=== PATIENT | male | born 1950 | race American Indian/Alaskan Native ===

== ENCOUNTER 2016-11-23 19:25 | Inpatient (IN) | payer OTHER ==
--- NOTE | 2016-11-23 20:03 | HP ---
COWS - Scale Resting Pulse: 2= [place] 101-120 Sweatin= Chills/Flushing Restless Observation: 3= Extraneous Movement Pupil Size: 2= Moderately Dilated Bone or Joint Aches: 2= Severe Diffuse Aches Runny Nose/ Eye Tearin= Runny Nose/Eyes GI Upset > 30mins: 3= Vomiting/Diarrhea Tremor Observation: 2= Slight Tremor Visible Yawning Observation: 0= None Anxiety or Irritability: 2=Irritable/Anxious Goose Flesh Skin: 0=Smooth Skin COWS Score: 19 CIWA Score - CIWA Score Nausea/Vomitin Muscle Tremors: 3 Anxiety: 3 Agitation: 2 Paroxysmal Sweats: 1-Minimal Palms Moist Orientation: 0-Oriented Tacttile Disturbances: 2-Mild Itch/Numbness/Burn Auditory Disturbances: 2-Mild Harshness/Frighten Visual Disturbances: 2-Mild Sensitivity Headache: 2-Mild CIWA-Ar Total Score: 20 Admission ROS BHS - HPI Chief Complaint: I NEED HELP TO STOP USING HEROIN AND ALCOHOL Allergies/Adverse Reactions: Allergies Allergy/AdvReac Type Severity Reaction Status Date / Time No Known Allergies Allergy Verified 11/23/16 21:05 History of Present Illness: THIS 66 YEARS OLD MALE WITH HEROIN AND ALCOHOL DEPENDENCE,WITHDRAWAL SYMPTOM, LAST DETOX IN [facility] LAST IN 09/25/16 TO 09/30/16 BIPOLAR DISORDER WEIGHT LOSS NICOTINE DEPENDENCE HISTORY OF DYSPHAGIA ALSO USING XANAX AND PERCOCET BIPOLAR DISORDER LONGEST PERIOD OF SOBRIETY 1 YEAR Exam Limitations: No Limitations - Ebola screening Have you traveled outside of the country in the last 21 days: No (N) Have you had contact with anyone from an Ebola affected area: No Do you have a fever: No - Review of Systems Constitutional: Chills, Loss of Appetite, Malaise, Night Sweats, Changes in sleep, Weakness, Unintentional Wgt. Loss EENT: reports: Tearing, Nose Congestion Respiratory: reports: No Symptoms reported Cardiac: reports: No Symptoms Reported GI: reports: Diarrhea, Nausea, Vomiting, Abdominal cramping : reports: No Symptoms Reported Musculoskeletal: reports: Back Pain, Joint Pain, Muscle Pain Integumentary: reports: Dryness Neuro: reports: Headache, Tremors Endocrine: reports: No Symptoms Reported Hematology: reports: No Symptoms Reported Psychiatric: reports: Anxious, Depressed, other (BIPOLAR DISORDER) Patient History - Patient Medical History Hx Anemia: No Hx Asthma: No Hx Chronic Obstructive Pulmonary Disease (COPD): No Hx Cancer: No Hx Cardiac Disorders: No Hx Congestive Heart Failure: No Hx Hypertension: No Hx Hypercholesterolemia: No Hx Pacemaker: No HX Cerebrovascular Accident: No Hx Seizures: No Hx Dementia: No Hx Diabetes: No Hx Gastrointestinal Disorders: No Hx Liver Disease: Yes (hepatitis a,b,c) Hx Genitourinary Disorders: No Hx Sexually Transmitted Disorders: No Hx Renal Disease (ESRD): No Hx Thyroid Disease: No Hx Human Immunodeficiency Virus (HIV): No (LAST 08/09 NEGATIVE) Hx Hepatitis C: Yes Hx Depression: Yes Hx Suicide Attempt: Yes (2013 PILL OD) Hx Bipolar Disorder: Yes (seroquel wellbutrin) Hx Schizophrenia: No Other Medical History: NO SUICIDAL,NO HOMICIDAL - Patient Surgical History Past Surgical History: Yes Hx Neurologic Surgery: No Hx Cataract Extraction: No Hx Cardiac Surgery: No Hx Lung Surgery: No Hx Breast Surgery: No Hx Breast Biopsy: No Hx Abdominal Surgery: No Hx Appendectomy: No Hx Cholecystectomy: No Hx Genitourinary Surgery: No Hx Section: No Hx Orthopedic Surgery: Yes (left cheek bone and nasal surgery 1970) Other Surgical History: reconstructive sx, nose and left cheekbone in 1971 Anesthesia Reaction: No - PPD History Previous Implant?: Yes Documented Results: Negative w/proof Date: 06/14/16 Results: 0mm PPD to be Administered?: No - Smoking Cessation Smoking history: Never smoked Have you smoked in the past 12 months: No Aproximately how many cigarettes per day: 5 Cigars Per Day: 0 Hx Chewing Tobacco Use: No Initiated information on smoking cessation: Yes 'Breaking Loose' booklet given: 11/23/16 - Substance & Tx. History Hx Alcohol Use: Yes Hx Substance Use: Yes Substance Use Type: Alcohol, Heroin, Prescribed, Tranquilizers - Substances Abused Heroin Route: Inhalation Frequency: Daily (8 BAGS) Amount used: 8 BAGS Age of first use: 18 Date of Last Use: 11/23/16 Alcohol Route: Oral Frequency: Daily Amount used: 6 PACKS OF 22 OZS OF BEER Alprazolam (Xanax) Route: Oral Frequency: 3-6 times per week Amount used: 4 MGS Age of first use: 66 Date of Last Use: 11/22/16 PERCOCET Route: Oral Frequency: Daily Amount used: 15 MGS Age of first use: 66 Date of Last Use: 11/22/16 Family Disease History - Family Disease History Family Disease History: Respiratory: Father (), Other: Mother ( ALCOHOLIC Cirrhosis), Brother (ALCOHOL), Sister (ALCOHOL) Admission Physical Exam S - Vital Signs Vital Signs: Vital Signs Temperature 98.2 F 11/23/16 20:01 Pulse Rate 102 H 11/23/16 20:01 Respiratory Rate 18 11/23/16 20:01 Blood Pressure 113/69 11/23/16 20:01 O2 Sat by Pulse Oximetry (%) - Physical General Appearance: Yes: Moderate Distress, Tremorous, Irritable, Sweating, Anxious HEENTM: Yes: Nasal Congestion Respiratory: Yes: Lungs Clear Neck: Yes: Within Normal Limits Breast: Yes: Within Normal Limits Cardiology: Yes: Tachycardia Abdominal: Yes: Within Normal Limits, Normal Bowel Sounds, Non Tender, Flat, Soft Genitourinary: Yes: Within Normal Limits Back: Yes: Muscle Spasm Musculoskeletal: Yes: Back pain, Muscle Pain Extremities: Yes: Tremors 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 (4) GERD (gastroesophageal reflux disease) Current Visit: No Status: Chronic Qualifiers: Esophagitis presence: without esophagitis Qualified Code(s): K21.9 - Gastro-esophageal reflux disease without esophagitis (5) Hepatitis A Current Visit: No Status: Chronic Qualifiers: Hepatic coma status: without hepatic coma Qualified Code(s): B15.9 - Hepatitis A without hepatic coma (6) Hepatitis B Current Visit: No Status: Chronic Qualifiers: Viral hepatitis chronicity: carrier Qualified Code(s): Z22.51 - Carrier of viral hepatitis B (7) Hepatitis C carrier Current Visit: No Status: Chronic (8) Nicotine dependence Current Visit: No Status: Chronic Qualifiers: Nicotine product type: cigarettes Substance use status: uncomplicated Qualified Code(s): F17.210 - Nicotine dependence, cigarettes, uncomplicated Comment: . (9) Anemia Current Visit: No Status: Suspected Qualifiers: Anemia type: iron deficiency Iron deficiency anemia type: other iron deficiency Qualified Code(s): D50.8 - Other iron deficiency anemias Comment: . (10) Bipolar I disorder Current Visit: No Status: Suspected (11) Weight loss Current Visit: Yes Status: Acute (12) Low back pain Current Visit: Yes Status: Acute (13) Use of cane as ambulatory aid Current Visit: Yes Status: Acute Cleared for Admission BHS - Detox or Rehab S Level of Care: Medically Managed Detox Regimen/Protocol: Methadone/Librium BHS Breath Alcohol Content Breath Alcohol Content: 0.033 Vital Signs - Vital Signs Vital Signs Refused: No Temperature: 98.2 F Temperature Source: Oral (102) Pulse Rate: 102 Respiratory Rate: 18 Blood Pressure: 113/69 BP Location: Left Arm - Height Height: 5 ft 8 in - Weight Weight: 136 lb Weight Measurement Method: Standing Scale Body Mass Index (BMI): 20.7 Urine Drug Screen - Test Device Lot Number: [id number] Expiration Date: 07/24/16 - Control Is Test Valid: Yes - Results Drug Screen Negative: No Urine Drug Screen Results: OPI-Opiates, BZO-Benzodiazepines, TCA-Tricyclic Antidepress, OXY-Oxycodone
[2016-11-23 20:05] VITALS: BMI 20.7
[2016-11-23] MEDS ORDERED: MENTHOL/PHENOL 1 EACH UD MM PRN (20:33)
[2016-11-23] MEDS ORDERED: chlordiazePOXIDE HCL 25 MG CAPSULE PO PRN (20:33)
[2016-11-23] MEDS ORDERED: guaiFENesin/D-METHORPHAN HB 10 ML UNIT-DOSE CUPS PO PRN (20:33)
[2016-11-23] MEDS ORDERED: METHADONE HCL 10 MG TABLET (FOR DETOX USE ONLY) PO ONE ×2 (20:33→23:00)
[2016-11-23] MEDS ORDERED: MAGNESIUM HYDROX 2400MG/30ML ORAL SUSPENSION 30 ML CUP PO PRN (20:33)
[2016-11-23] MEDS ORDERED: diphenhydrAMINE HCL 50 MG CAPSULE PO PRN (20:33)
[2016-11-23] MEDS ORDERED: LOPERAMIDE HCL 2 MG CAPSULE PO PRN (20:33)
[2016-11-23] MEDS ORDERED: MAGNESIUM CITRATE 300 ML BOTTLE PO PRN (20:33)
[2016-11-23] MEDS ORDERED: MAG HYDROX/AL HYDROX/SIMETH 30 ML UNIT-DOSE CUP PO PRN (20:33)
[2016-11-23] MEDS ORDERED: P-EPHED 60MG/TRIPROLIDI 2.5MG TABLET PO PRN (20:33)
[2016-11-23] MEDS ORDERED: ALBUTEROL SO4 6.7 GM HFA INHALER IH PRN (21:08)
[2016-11-23] MEDS: chlordiazePOXIDE HCL 25 MG CAPSULE PO SCH (22:01)
[2016-11-23] MEDS: THIAMINE HCL 100 MG TABLET (FP) PO SCH (22:01)
[2016-11-24] MEDS: chlordiazePOXIDE HCL 25 MG CAPSULE PO SCH ×4 (06:04→22:26)
[2016-11-24] MEDS: ACETAMINOPHEN 325 MG TABLET (FP) PO PRN ×2 (06:07→23:55)
[2016-11-24] MEDS ORDERED: METHADONE HCL 10 MG TABLET (FOR DETOX USE ONLY) PO SCH (10:00)
[2016-11-24] MEDS: PANTOPRAZOLE 40 MG TABLET (FP) PO SCH (10:30)
[2016-11-24] MEDS: PRENATAL VITAMINS W/ FOLIC ACID TABLET (FP) PO SCH (10:30)
[2016-11-24] MEDS: NICOTINE 14 MG/24 HOURS TOPICAL PATCH TD SCH (10:31)
[2016-11-24] MEDS ORDERED: COLLOIDAL OATMEAL 1 BAR EACH TP PRN (10:35)
[2016-11-24] MEDS ORDERED: INFLUENZA VACCINE 45 MCG/0.5 ML (MDV 16-17) IM ONE (12:00)
[2016-11-24] MEDS: IBUPROFEN 400 MG TABLET (FP) PO PRN (13:05)
[2016-11-24] MEDS ORDERED: diphenhydrAMINE HCL 25 MG CAPSULE (FP) PO PRN (13:11)
--- NOTE | 2016-11-24 13:19 | PN ---
[facility] CIWA - CIWA Score Nausea/Vomitin Muscle Tremors: 3 Anxiety: 1-Mildly Anxious Agitation: 2 Paroxysmal Sweats: 3 Orientation: 1-Uncertain about Date Tacttile Disturbances: 3-Moderate Itch/Numb/Burn Auditory Disturbances: 0-None Visual Disturbances: 0-None Headache: 0-None Present CIWA-Ar Total Score: 18 BHS COWS - Scale Resting Pulse: 1= [place] 81-100 Sweatin= Chills/Flushing Restless Observation: 1= Difficult to Sit Still Pupil Size: 0= Normal to Room Light Bone or Joint Aches: 1= Mild Discomfort Runny Nose/ Eye Tearin= None GI Upset > 30mins: 2= Nausea/Diarrhea Tremor Observation of Outstretched Hands: 2= Slight Tremor Visible Yawning Observation: 0= None Anxiety or Irritability: 2=Irritable/Anxious Goose Flesh Skin: 3=Piloerection COWS Score: 13 BHS Progress Note (SOAP) Subjective: Tremors, Sweating, Vomiting, Body Aches, Interrupted Sleep, Diarrhea. Pt. also reporting lesions on bilateral forearms, buttock and right leg that are itchy. Pt. reports this to be a chronic condition. Objective: Several large Hyperpigmented Papular lesions are noted on pt.'s buttocks, forearms, upper aspect of right leg, and right foot. 11/24/16 13:17 Vital Signs Temperature 96.7 F L 11/24/16 13:11 Pulse Rate 78 11/24/16 13:11 Respiratory Rate 18 11/24/16 13:11 Blood Pressure 111/62 11/24/16 13:11 O2 Sat by Pulse Oximetry (%) 11/24/16 13:18 LABS NOT YET COLLECTED. 11/24/16 13:19 Assessment: 11/24/16 13:18 WITHDRAWAL SYMPTOMS. 11/24/16 13:21 Plan: CONTINUE DETOX. D/C MAGNESIUM-CONTAINING PRODUCTS DUE ABNORMAL RENAL LABS. BENADRYL, 25 MG Q 6 HRS PRN ITCHING. TRIAMCINOLONE OINTMENT TO BE BE APPLIED BID TO AFFECTED AREAS. ADVISE PT. TO FOLLOW-UP WITH PMD AFTER DISCHARGE REGARDING SKIN ISSUE AND REGARDING ABNORMAL LAB VALUES.
[2016-11-24] MEDS: TRIAMCINOLONE ACET 0.025% OINTMENT 15 GM TUBE TP SCH ×2 (16:13→22:28)
[2016-11-24] MEDS: THIAMINE HCL 100 MG TABLET (FP) PO SCH (22:26)
[2016-11-25] MEDS: IBUPROFEN 400 MG TABLET (FP) PO PRN (01:45)
[2016-11-25] MEDS: hydrOXYzine PAMOATE 25 MG CAPSULE (FP) PO PRN (01:45)
[2016-11-25] MEDS: chlordiazePOXIDE HCL 25 MG CAPSULE PO SCH ×3 (05:28→17:43)
[2016-11-25 10:32] LABS: MCHC 33.6 g/dl (32.0-35.9); MEAN CELL VOLUME 92.4 fl (80-96); MEAN PLT VOLUME 8.5 fl (7.5-11.1); PLATELET COUNT 215 K/MM3 (134-434); RDW 20.2 % (11.9-15.9); WHITE BLOOD COUNT 4.8 K/mm3 (4.0-10.0)
[2016-11-25] MEDS: TRIAMCINOLONE ACET 0.025% OINTMENT 15 GM TUBE TP SCH ×4 (10:34→22:22)
[2016-11-25] MEDS: PRENATAL VITAMINS W/ FOLIC ACID TABLET (FP) PO SCH (10:35)
[2016-11-25] MEDS: METHADONE HCL 5 MG TABLET (FOR DETOX USE ONLY) PO SCH (10:35)
[2016-11-25] MEDS: PANTOPRAZOLE 40 MG TABLET (FP) PO SCH (10:36)
[2016-11-25] MEDS: NICOTINE 14 MG/24 HOURS TOPICAL PATCH TD SCH (10:36)
--- NOTE | 2016-11-25 10:46 | PN ---
[facility] CIWA - CIWA Score Nausea/Vomitin-No Nausea/No Vomiting Muscle Tremors: 4-Moderate,w/Arms Extend Anxiety: 3 Agitation: 3 Paroxysmal Sweats: 3 Orientation: 0-Oriented Tacttile Disturbances: 1-Very Mild Itch/Numbness Auditory Disturbances: 0-None Visual Disturbances: 0-None Headache: 0-None Present CIWA-Ar Total Score: 14 S COWS - Scale Resting Pulse: 1= [place] 81-100 Sweatin=Flushed/Facial Moisture Restless Observation: 1= Difficult to Sit Still Pupil Size: 0= Normal to Room Light Bone or Joint Aches: 1= Mild Discomfort Runny Nose/ Eye Tearin= Runny Nose/Eyes GI Upset > 30mins: 1= Stomach Cramp Tremor Observation of Outstretched Hands: 1= Tremor [place], Not Seen Yawning Observation: 1= 1-2x During Session Anxiety or Irritability: 2=Irritable/Anxious Goose Flesh Skin: 0=Smooth Skin COWS Score: 12 [facility] Progress Note (SOAP) Subjective: SWEATING,ANXIETY,TREMORS,INTERRUPTED SLEEP,RESTLESS. C/O HYPERPIGMENTED RASH ON EXTREMITIES AND TRUNK Objective: 11/25/16 10:45 Vital Signs - 8 hr 11/25/16 11/25/16 06:13 10:18 Temperature 97.0 F L 97.1 F L Pulse Rate 82 90 Respiratory 16 18 Rate Blood Pressure 108/64 142/82 Laboratory Last Values WBC 4.8 K/mm3 (4.0-10.0) 11/25/16 07:15 RBC 2.82 M/mm3 (4.00-5.60) L D 11/25/16 07:15 Hgb 8.7 GM/dL (11.7-16.9) L D 11/25/16 07:15 Hct 26.1 % (35.4-49) L D 11/25/16 07:15 MCV 92.4 fl (80-96) 11/25/16 07:15 MCHC 33.6 g/dl (32.0-35.9) 11/25/16 07:15 RDW 20.2 % (11.9-15.9) H D 11/25/16 07:15 Plt Count 215 K/MM3 (134-434) D 11/25/16 07:15 MPV 8.5 fl (7.5-11.1) 11/25/16 07:15 LABS NOTED,WE'LL REPEAT Assessment: 11/25/16 10:46 WITHDRAWAL SX. ANEMIA Plan: CONTINUE DETOX
[2016-11-25 11:15] LABS: ALBUMIN 3.3 g/dl (3.4-5.0); ALK PHOS 85 U/L (45-117); ANION GAP 7 (8-16); BILIRUBIN,TOTAL 0.5 mg/dL (0.2-1.0); CALCIUM 8.5 mg/dL (8.5-10.1); CO2 23 mmol/L (21-32); CREATININE 0.8 mg/dL (0.7-1.3); GLUCOSE,RANDOM 86 mg/dL (74-106); SGOT/AST 17 U/L (15-37); SGPT/ALT 20 U/L (12-78); TOT PROT 6.9 g/dl (6.4-8.2)
[2016-11-25] MEDS ORDERED: diphenhydrAMINE HCL 25 MG CAPSULE (FP) PO PRN (12:41)
[2016-11-25] MEDS: FERROUS SO4 325 MG TABLET (FP) PO SCH ×2 (13:57→17:43)
[2016-11-25 15:28] LABS: HIV 1 & 2 AB NEGATIVE; HIV 1 AGp24 NEGATIVE
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
[2016-11-25] MEDS: GABAPENTIN 100 MG CAPSULE (FP) PO SCH (22:21)
[2016-11-25] MEDS: chlordiazePOXIDE 5 MG CAPSULE PO SCH (22:21)
[2016-11-25] MEDS: THIAMINE HCL 100 MG TABLET (FP) PO SCH (22:21)
[2016-11-25] MEDS: QUEtiapine FUMARATE 200 MG TABLET PO SCH (22:21)
[2016-11-26] MEDS: chlordiazePOXIDE 5 MG CAPSULE PO SCH ×3 (06:00→17:19)
[2016-11-26] MEDS: GABAPENTIN 100 MG CAPSULE (FP) PO SCH ×3 (06:12→22:17)
[2016-11-26] MEDS: ACETAMINOPHEN 325 MG TABLET (FP) PO PRN ×2 (06:17→20:50)
[2016-11-26] MEDS: IBUPROFEN 400 MG TABLET (FP) PO PRN (07:31)
[2016-11-26] MEDS: FERROUS SO4 325 MG TABLET (FP) PO SCH ×3 (07:42→17:20)
--- NOTE | 2016-11-26 10:05 | PN ---
S Progress Note (SOAP) Subjective: ALERT,IRRITABLE,ANXIOUS,INTERRUPTED SLEEP,PAIN IN LOWER BACK, Objective: 11/26/16 10:04 Vital Signs Temperature 96.8 F L 11/26/16 06:36 Pulse Rate 104 H 11/26/16 06:36 Respiratory Rate 18 11/26/16 06:36 Blood Pressure 114/63 11/26/16 06:36 O2 Sat by Pulse Oximetry (%) Assessment: 11/26/16 10:04 WITHDRAWAL SYMPTOM Plan: CONTINUE DETOX
[2016-11-26] MEDS: TRIAMCINOLONE ACET 0.025% OINTMENT 15 GM TUBE TP SCH ×4 (10:14→22:17)
[2016-11-26] MEDS: NICOTINE 14 MG/24 HOURS TOPICAL PATCH TD SCH (10:14)
[2016-11-26] MEDS: PRENATAL VITAMINS W/ FOLIC ACID TABLET (FP) PO SCH (10:14)
[2016-11-26] MEDS: METHADONE HCL 5 MG TABLET (FOR DETOX USE ONLY) PO SCH (10:14)
[2016-11-26] MEDS: PANTOPRAZOLE 40 MG TABLET (FP) PO SCH (10:14)
[2016-11-26] MEDS: LIDOCAINE 5% TOPICAL PATCH TP SCH (10:45)
[2016-11-26 16:29] LABS: URINE APPEARANCE CLEAR; URINE BILIRUBIN NEGATIVE (NEGATIVE); URINE BLOOD NEGATIVE (NEGATIVE); URINE COLOR YELLOW; URINE GLUCOSE (UA) NEGATIVE (NEGATIVE); URINE KETONE NEGATIVE (NEGATIVE); URINE LEUK ESTERASE NEGATIVE (NEGATIVE); URINE NITRITE NEGATIVE (NEGATIVE); URINE PROTEIN NEGATIVE (NEGATIVE); URINE UROBILINOGEN NEGATIVE E.U./dl (0.2-1.0)
[2016-11-26] MEDS: QUEtiapine FUMARATE 200 MG TABLET PO SCH (22:17)
[2016-11-26] MEDS: chlordiazePOXIDE HCL 10 MG CAPSULE PO SCH (22:17)
[2016-11-26] MEDS: THIAMINE HCL 100 MG TABLET (FP) PO SCH (22:18)
[2016-11-27] MEDS: GABAPENTIN 100 MG CAPSULE (FP) PO SCH ×3 (06:33→22:15)
[2016-11-27] MEDS: chlordiazePOXIDE HCL 10 MG CAPSULE PO SCH ×3 (06:33→17:12)
[2016-11-27] MEDS: FERROUS SO4 325 MG TABLET (FP) PO SCH ×3 (07:26→17:30)
--- NOTE | 2016-11-27 09:48 | PN ---
S Progress Note (SOAP) Subjective: ALERT,IRRITABLE,INTERRUPTED SLEEP Objective: 11/27/16 09:47 Vital Signs Temperature 97.0 F L 11/27/16 09:33 Pulse Rate 90 11/27/16 09:33 Respiratory Rate 18 11/27/16 09:33 Blood Pressure 136/66 11/27/16 09:33 O2 Sat by Pulse Oximetry (%) Assessment: 11/27/16 09:48 WITHDRAWAL SYMPTOM Plan: CONTINUE DETOX,DISCHARGE IN AM
[2016-11-27] MEDS ORDERED: METHADONE HCL 10 MG TABLET (FOR DETOX USE ONLY) PO SCH (10:00)
[2016-11-27] MEDS: TRIAMCINOLONE ACET 0.025% OINTMENT 15 GM TUBE TP SCH ×4 (10:13→22:17)
[2016-11-27] MEDS: LIDOCAINE 5% TOPICAL PATCH TP SCH (10:13)
[2016-11-27] MEDS: NICOTINE 14 MG/24 HOURS TOPICAL PATCH TD SCH (10:13)
[2016-11-27] MEDS: PANTOPRAZOLE 40 MG TABLET (FP) PO SCH (10:13)
[2016-11-27] MEDS: PRENATAL VITAMINS W/ FOLIC ACID TABLET (FP) PO SCH (10:13)
[2016-11-27] MEDS: IBUPROFEN 400 MG TABLET (FP) PO PRN (17:13)
[2016-11-27] MEDS: THIAMINE HCL 100 MG TABLET (FP) PO SCH (22:15)
[2016-11-27] MEDS: QUEtiapine FUMARATE 200 MG TABLET PO SCH (22:15)
[2016-11-28] MEDS: ACETAMINOPHEN 325 MG TABLET (FP) PO PRN (04:22)
[2016-11-28] MEDS: hydrOXYzine PAMOATE 25 MG CAPSULE (FP) PO PRN (04:25)
[2016-11-28] MEDS ORDERED: METHADONE HCL 5 MG TABLET (FOR DETOX USE ONLY) PO SCH (06:00)
[2016-11-28] MEDS: GABAPENTIN 100 MG CAPSULE (FP) PO SCH (06:21)
[2016-11-28] MEDS: FERROUS SO4 325 MG TABLET (FP) PO SCH (07:32)
--- NOTE | 2016-11-28 08:13 | PN ---
S Progress Note (SOAP) Subjective: alert,no complaint Objective: 11/28/16 08:12 Vital Signs Temperature 96.9 F L 11/28/16 06:26 Pulse Rate 81 11/28/16 06:26 Respiratory Rate 18 11/28/16 06:26 Blood Pressure 152/80 11/28/16 06:26 O2 Sat by Pulse Oximetry (%) 11/28/16 08:12 Assessment: 11/28/16 08:12 detox completed,no withdrawal symptom Plan: discharge today,follow up with after care program as arrangement
--- NOTE | 2016-11-28 08:18 | DS ---
[facility] Detox Discharge Summary Admission Date: 11/23/16 Discharge Date: 11/28/16 - History Present History: Alcohol Dependence, Opioid Dependence Additional Comments: follow up with after [facility] program as arrangement and pmd for medical problem Pertinent Past History: gerd hepatitis a hepatitis b hepatitis c nicotine dependence anemia low back pain - Physical Exam Results Vital Signs: Vital Signs Temperature 96.9 F L 11/28/16 06:26 Pulse Rate 81 11/28/16 06:26 Respiratory Rate 18 11/28/16 06:26 Blood Pressure 152/80 11/28/16 06:26 O2 Sat by Pulse Oximetry (%) Pertinent Admission Physical Exam Findings: withdrawal symptom - Treatment Hospital Course: Detox Protocol Followed, Detoxed Safely, Responded well, Discharged Condition Good Patient has Accepted a Rehab Referral to: [facility] - Medication Discharge Medications: Ambulatory Orders Pantoprazole Sodium [Protonix] 40 mg PO DAILY #30 tablet. 10/04/15 Bupropion HCl [Wellbutrin Xl -] 150 mg PO DAILY #30 tab.sr.24h 09/25/16 Gabapentin [Neurontin] 100 mg PO TID #30 capsule 09/25/16 Quetiapine Fumarate [Seroquel] 100 tab PO DAILY #30 tablet 09/25/16 Quetiapine Fumarate [Seroquel -] 400 mg PO HS 11/23/16 Bupropion HCl [Wellbutrin Xl -] 150 mg PO DAILY #30 tab.sr.24h 11/25/16 Gabapentin [Neurontin -] 100 mg PO TID #60 capsule 11/25/16 Quetiapine Fumarate [Seroquel -] 300 mg PO HS #30 tab 11/25/16 - Diagnosis (1) Opioid dependence with withdrawal Current Visit: Yes Status: Acute (2) Alcohol dependence with uncomplicated withdrawal Current Visit: Yes Status: Acute (3) COPD (chronic obstructive pulmonary disease) Current Visit: No Status: Chronic Qualifiers: COPD type: chronic bronchitis Chronic bronchitis type: simple Qualified Code(s): J41.0 - Simple chronic bronchitis (4) GERD (gastroesophageal reflux disease) Current Visit: Yes Status: Chronic Qualifiers: Esophagitis presence: without esophagitis Qualified Code(s): K21.9 - Gastro-esophageal reflux disease without esophagitis (5) Hepatitis A Current Visit: Yes Status: Chronic Qualifiers: Hepatic coma status: without hepatic coma Qualified Code(s): B15.9 - Hepatitis A without hepatic coma (6) Hepatitis B Current Visit: Yes Status: Chronic Qualifiers: Viral hepatitis chronicity: carrier Qualified Code(s): Z22.51 - Carrier of viral hepatitis B (7) Hepatitis C carrier Current Visit: Yes Status: Chronic (8) Nicotine dependence Current Visit: Yes Status: Acute Qualifiers: Nicotine product type: cigarettes Substance use status: uncomplicated Qualified Code(s): F17.210 - Nicotine dependence, cigarettes, uncomplicated (9) Anemia Current Visit: Yes Status: Suspected Qualifiers: Anemia type: iron deficiency Iron deficiency anemia type: other iron deficiency Qualified Code(s): D50.8 - Other iron deficiency anemias (10) Bipolar I disorder Current Visit: No Status: Suspected (11) Weight loss Current Visit: Yes Status: Chronic (12) Low back pain Current Visit: Yes Status: Chronic (13) Use of cane as ambulatory aid Current Visit: Yes Status: Chronic - AMA Did Patient Leave Against Medical Advice: No
[2016-11-28 09:39] VITALS: BP 139/50; PULSE 77; TEMP 96.8
[2016-11-28] MEDS: PRENATAL VITAMINS W/ FOLIC ACID TABLET (FP) PO SCH (10:04)
[2016-11-28] MEDS: PANTOPRAZOLE 40 MG TABLET (FP) PO SCH (10:04)
[2016-11-28] MEDS: LIDOCAINE 5% TOPICAL PATCH TP SCH (10:05)
[2016-11-28] MEDS: NICOTINE 14 MG/24 HOURS TOPICAL PATCH TD SCH (10:05)
[2016-11-28] MEDS: TRIAMCINOLONE ACET 0.025% OINTMENT 15 GM TUBE TP SCH (10:05)
== END 2016-11-28 10:15 | disposition home or self-care (01) | DRG 773 ==
LOC: YASAS 19:25 → Y3N 20:14
PROVIDERS: ADMIT Internal Medicine; ATTEND Internal Medicine
PROC: HZ2ZZZZ Detoxification Services for Substance Abuse Treatment (ICD-10-PCS; principal; 2016-11-23)
DX: F11.23 Opioid dependence with withdrawal (principal); F10.230 Alcohol dependence with withdrawal, uncomplicated; F17.210 Nicotine dependence, cigarettes, uncomplicated; F31.89 Other bipolar disorder; F19.24 Other psychoactive substance dependence with psychoactive substance-induced mood disorder; F19.282 Other psychoactive substance dependence with psychoactive substance-induced sleep disorder; J41.0 Simple chronic bronchitis; K21.9 Gastro-esophageal reflux disease without esophagitis; B15.9 Hepatitis A without hepatic coma; B18.2 Chronic viral hepatitis C; B18.1 Chronic viral hepatitis B without delta-agent; D50.9 Iron deficiency anemia, unspecified; M54.5 Low back pain; R00.0 Tachycardia, unspecified; R26.2 Difficulty in walking, not elsewhere classified; Z87.898 Personal history of other specified conditions; Z91.5 Personal history of self-harm
CPT/HCPCS: 36415; 80053; 81003; 85027; 86593; 87389; 93005; 93010

== ENCOUNTER 2017-01-04 14:04 | Inpatient (IN) | payer OTHER ==
[2017-01-04 15:53] VITALS: BMI 20.8
--- NOTE | 2017-01-04 16:31 | HP ---
COWS - Scale Resting Pulse: 2= WA 101-120 Sweatin=Flushed/Facial Moisture Restless Observation: 1= Difficult to Sit Still Pupil Size: 2= Moderately Dilated Bone or Joint Aches: 2= Severe Diffuse Aches Runny Nose/ Eye Tearin= Runny Nose/Eyes GI Upset > 30mins: 2= Nausea/Diarrhea Tremor Observation: 2= Slight Tremor Visible Yawning Observation: 1= 1-2x During Session Anxiety or Irritability: 2=Irritable/Anxious Goose Flesh Skin: 0=Smooth Skin COWS Score: 18 CIWA Score - CIWA Score Nausea/Vomitin Muscle Tremors: 4-Moderate,w/Arms Extend Anxiety: 4-Mod. Anxious/Guarded Agitation: 4-Moderately Restless Paroxysmal Sweats: 3 Orientation: 1-Uncertain about Date Tacttile Disturbances: 1-Very Mild Itch/Numbness Auditory Disturbances: 0-None Visual Disturbances: 0-None Headache: 0-None Present CIWA-Ar Total Score: 20 Admission ROS BHS - HPI Chief Complaint: withdrawal sx. Allergies/Adverse Reactions: Allergies Allergy/AdvReac Type Severity Reaction Status Date / Time No Known Allergies Allergy Verified 11/23/16 21:05 History of Present Illness: 66 y/o man with a long hx. of heroin & alcohol dependence is admitted for detox.Pt. has been in previous detox, denies significant sobriety. Exam Limitations: No Limitations - Ebola screening Have you traveled outside of the country in the last 21 days: No Have you had contact with anyone from an Ebola affected area: No Have you been sick,other than usual withdrawal symptoms: No Do you have a fever: No - Review of Systems Constitutional: Diaphoresis EENT: reports: Nose Congestion Respiratory: reports: Shortness of Breath (because of smoking) Cardiac: reports: No Symptoms Reported GI: reports: Nausea, Abdominal cramping : reports: No Symptoms Reported Musculoskeletal: reports: Back Pain Integumentary: reports: Sweating Neuro: reports: Tingling, Tremors Endocrine: reports: No Symptoms Reported Hematology: reports: No Symptoms Reported Psychiatric: reports: No Sypmtoms Reported Other Systems: Reviewed and Negative Patient History - Patient Medical History Hx Anemia: No Hx Asthma: No Hx Chronic Obstructive Pulmonary Disease (COPD): Yes Hx Cancer: No Hx Cardiac Disorders: No Hx Congestive Heart Failure: No Hx Hypertension: No Hx Hypercholesterolemia: No Hx Pacemaker: No HX Cerebrovascular Accident: No Hx Seizures: No Hx Dementia: No Hx Diabetes: No Hx Gastrointestinal Disorders: No Hx Liver Disease: Yes (hepatitis a,b,c) Hx Genitourinary Disorders: No Hx Sexually Transmitted Disorders: No Hx Renal Disease (ESRD): No Hx Thyroid Disease: No Hx Human Immunodeficiency Virus (HIV): No Hx Hepatitis C: Yes (incomplete treatment) Hx Depression: Yes Hx Suicide Attempt: Yes (2013 PILL OD) Hx Bipolar Disorder: Yes (seroquel wellbutrin) Hx Schizophrenia: No - Patient Surgical History Past Surgical History: Yes Hx Neurologic Surgery: No Hx Cataract Extraction: No Hx Cardiac Surgery: No Hx Lung Surgery: No Hx Breast Surgery: No Hx Breast Biopsy: No Hx Abdominal Surgery: No Hx Appendectomy: No Hx Cholecystectomy: No Hx Genitourinary Surgery: No Hx Section: No Hx Orthopedic Surgery: Yes (left cheek bone and nasal surgery 1970) Other Surgical History: reconstructive sx, nose and left cheekbone in 1971 Anesthesia Reaction: No - PPD History Previous Implant?: Yes Documented Results: Negative w/proof Implanted On Prior [facility] Admission?: Yes Date: 06/14/16 Results: 0mm PPD to be Administered?: No - Smoking Cessation Smoking history: Current every day smoker Aproximately how many cigarettes per day: 5 Cigars Per Day: 0 Hx Chewing Tobacco Use: No Initiated information on smoking cessation: Yes 'Breaking Loose' booklet given: 01/04/17 - Substance & Tx. History Hx Alcohol Use: Yes Hx Substance Use: Yes Substance Use Type: Alcohol, Heroin Hx Substance Use Treatment: Yes (detox) - Substances Abused Alcohol Route: Oral Frequency: Daily Amount used: Beer 2(6packs) Age of first use: 23 Date of Last Use: 01/04/17 Heroin Route: Inhalation Frequency: Daily Amount used: 5 bags Age of first use: 18 Date of Last Use: 01/04/17 Family Disease History - Family Disease History Family Disease History: Respiratory: Father (), Other: Mother ( ALCOHOLIC Cirrhosis), Brother (ALCOHOL), Sister (ALCOHOL) Admission Physical Exam BHS - Vital Signs Vital Signs: Vital Signs - 24 hr 01/04/17 15:51 Temperature 98.6 F Pulse Rate 102 H Respiratory 20 Rate Blood Pressure 134/75 - Physical General Appearance: Yes: Alcohol on Breath, Tremorous, Irritable, Sweating HEENTM: Yes: Nasal Congestion, Rhinorrhea Respiratory: Yes: Chest Non-Tender, Lungs Clear, Normal Breath Sounds Neck: Yes: Supple Breast: Yes: Breast Exam Deferred Cardiology: Yes: Regular Rhythm, Regular Rate, S1, S2 Abdominal: Yes: Normal Bowel Sounds, Non Tender, Soft Genitourinary: Yes: Within Normal Limits Back: Yes: Within Normal Limits Musculoskeletal: Yes: Within Normal Limits Extremities: Yes: Tremors Neurological: Yes: Fully Oriented, Alert Integumentary: Yes: Diaphoresis Lymphatic: Yes: Within Normal Limits - Diagnostic (1) Alcohol dependence with uncomplicated withdrawal Current Visit: No Status: Acute (2) Opioid dependence with withdrawal Current Visit: No Status: Acute (3) COPD (chronic obstructive pulmonary disease) Current Visit: No Status: Chronic Qualifiers: COPD type: chronic bronchitis Chronic bronchitis type: simple Qualified Code(s): J41.0 - Simple chronic bronchitis Comment: . Cleared for Admission [facility] - Detox or Rehab [facility] Level of Care: Medically Managed Detox Regimen/Protocol: Methadone/Librium [facility] Breath Alcohol Content Breath Alcohol Content: 0.155 Urine Drug Screen - Results Drug Screen Negative: No Urine Drug Screen Results: OPI-Opiates, OXY-Oxycodone
[2017-01-04] MEDS ORDERED: MAGNESIUM HYDROX 2400MG/30ML ORAL SUSPENSION 30 ML CUP PO PRN (16:39)
[2017-01-04] MEDS ORDERED: hydrOXYzine PAMOATE 50 MG CAPSULE (FP) PO PRN (16:39)
[2017-01-04] MEDS ORDERED: P-EPHED 60MG/TRIPROLIDI 2.5MG TABLET PO PRN (16:39)
[2017-01-04] MEDS ORDERED: guaiFENesin/D-METHORPHAN HB 10 ML UNIT-DOSE CUPS PO PRN (16:39)
[2017-01-04] MEDS ORDERED: chlordiazePOXIDE HCL 25 MG CAPSULE PO ONE (16:39)
[2017-01-04] MEDS ORDERED: NICOTINE POLACRILEX 2 MG GUM BC PRN (16:39)
[2017-01-04] MEDS ORDERED: IBUPROFEN 400 MG TABLET (FP) PO PRN (16:39)
[2017-01-04] MEDS ORDERED: MAG HYDROX/AL HYDROX/SIMETH 30 ML UNIT-DOSE CUP PO PRN (16:39)
[2017-01-04] MEDS ORDERED: MENTHOL/PHENOL 1 EACH UD MM PRN (16:39)
[2017-01-04] MEDS ORDERED: MAGNESIUM CITRATE 300 ML BOTTLE PO PRN (16:39)
[2017-01-04] MEDS ORDERED: LOPERAMIDE HCL 2 MG CAPSULE PO PRN (16:39)
[2017-01-04] MEDS ORDERED: METHADONE HCL 10 MG TABLET (FOR DETOX USE ONLY) PO ONE ×2 (16:41→23:00)
[2017-01-04] MEDS ORDERED: ALBUTEROL SO4 6.7 GM HFA INHALER IH PRN (16:43)
[2017-01-04] MEDS ORDERED: METHADONE HCL 10 MG TABLET (FOR DETOX USE ONLY) ONE (19:52)
[2017-01-04] MEDS: PANTOPRAZOLE 40 MG TABLET (FP) PO SCH (19:59)
[2017-01-04] MEDS: FERROUS SO4 325 MG TABLET (FP) PO SCH (19:59)
[2017-01-04] MEDS: chlordiazePOXIDE HCL 25 MG CAPSULE PO SCH ×2 (20:00→22:33)
[2017-01-04] MEDS: NICOTINE 14 MG/24 HOURS TOPICAL PATCH TD SCH (20:00)
[2017-01-04] MEDS: ACLIDINIUM BROMIDE 400 MCG/INH AERO.POWD IH SCH (22:32)
[2017-01-04] MEDS: THIAMINE HCL 100 MG TABLET (FP) PO SCH (22:33)
[2017-01-04] MEDS: diphenhydrAMINE HCL 50 MG CAPSULE PO PRN (22:33)
[2017-01-05] MEDS: diphenhydrAMINE HCL 50 MG CAPSULE PO PRN (00:49)
[2017-01-05] MEDS: chlordiazePOXIDE HCL 25 MG CAPSULE PO PRN ×2 (03:06→18:54)
[2017-01-05] MEDS: chlordiazePOXIDE HCL 25 MG CAPSULE PO SCH ×4 (05:44→22:22)
[2017-01-05] MEDS: FERROUS SO4 325 MG TABLET (FP) PO SCH ×3 (07:25→18:54)
[2017-01-05] MEDS ORDERED: METHADONE HCL 10 MG TABLET (FOR DETOX USE ONLY) PO ONE (10:00)
[2017-01-05] MEDS: ACLIDINIUM BROMIDE 400 MCG/INH AERO.POWD IH SCH ×2 (10:02→22:23)
[2017-01-05] MEDS: PANTOPRAZOLE 40 MG TABLET (FP) PO SCH (10:02)
[2017-01-05] MEDS: PRENATAL VITAMINS W/ FOLIC ACID TABLET (FP) PO SCH (10:02)
[2017-01-05] MEDS: NICOTINE 14 MG/24 HOURS TOPICAL PATCH TD SCH (10:03)
[2017-01-05 10:12] LABS: MCH 31.7 pg (25.7-33.7); MCHC 33.2 g/dl (32.0-35.9); MEAN CELL VOLUME 95.5 fl (80-96); MEAN PLT VOLUME 8.8 fl (7.5-11.1); PLATELET COUNT 219 K/MM3 (134-434); RDW 15.7 % (11.9-15.9); WHITE BLOOD COUNT 7.2 K/mm3 (4.0-10.0)
[2017-01-05 10:26] LABS: ALBUMIN 3.6 g/dl (3.4-5.0); ALK PHOS 82 U/L (45-117); ANION GAP 8 (8-16); BILIRUBIN,TOTAL 0.3 mg/dL (0.2-1.0); CALCIUM 8.5 mg/dL (8.5-10.1); CO2 28 mmol/L (21-32); CREATININE 0.7 mg/dL (0.7-1.3); GLUCOSE,RANDOM 85 mg/dL (74-106); SGOT/AST 28 U/L (15-37); SGPT/ALT 23 U/L (12-78); TOT PROT 7.4 g/dl (6.4-8.2)
--- NOTE | 2017-01-05 13:18 | PN ---
S CIWA - CIWA Score Nausea/Vomitin Muscle Tremors: 4-Moderate,w/Arms Extend Anxiety: 3 Agitation: 4-Moderately Restless Paroxysmal Sweats: No Perspiration Orientation: 0-Oriented Tacttile Disturbances: 1-Very Mild Itch/Numbness Auditory Disturbances: 0-None Visual Disturbances: 0-None Headache: 2-Mild CIWA-Ar Total Score: 19 BHS COWS - Scale Resting Pulse: 1= ID 81-100 Sweatin=Flushed/Facial Moisture Restless Observation: 3= Extraneous Movement Pupil Size: 0= Normal to Room Light Bone or Joint Aches: 2= Severe Diffuse Aches Runny Nose/ Eye Tearin= Runny Nose/Eyes GI Upset > 30mins: 3= Vomiting/Diarrhea Tremor Observation of Outstretched Hands: 2= Slight Tremor Visible Yawning Observation: 0= None Anxiety or Irritability: 2=Irritable/Anxious Goose Flesh Skin: 0=Smooth Skin COWS Score: 17 S Progress Note (SOAP) Subjective: Anxious, restless, interrupted sleep (benadryl ineffective, requesting ambien tonight until seen by psychiatrist tomorrow), tremor, sweating, nausea, vomited once this AM, diarrhea Objective: 01/05/17 13:15 Last Vital Signs Temp Pulse Resp BP Pulse Ox 98.5 F 95 H 18 137/72 01/05/17 09:15 01/05/17 09:15 01/05/17 09:15 01/05/17 09:15 Laboratory Tests 01/05/17 01/05/17 01/05/17 07:50 07:50 07:50 WBC 7.2 D RBC 3.35 L Hgb 10.6 L D Hct 32.0 L D MCV 95.5 MCHC 33.2 RDW 15.7 D Plt Count 219 MPV 8.8 Sodium 136 Potassium 4.4 Chloride 100 Carbon Dioxide 28 D Anion Gap 8 BUN 9 D Creatinine 0.7 Creat Clearance w eGFR > 60 Random Glucose 85 Calcium 8.5 Total Bilirubin 0.3 D AST 28 D ALT 23 Alkaline Phosphatase 82 Total Protein 7.4 Albumin 3.6 RPR Titer Nonreactive Labs noted Assessment: 01/05/17 13:16 Withdrawal symptoms Plan: Continue detox, encouraged to drink lots of water for hydration, ambien 10mg PO x 1 dose tonight for interrupted sleep. Patient reports taking seroquel 400mg qhs and 300mg qam at home and wellbutrin 150mg bid?
[2017-01-05] MEDS ORDERED: TRIMETHOBENZAMIDE HCL 200MG/2ML INJ IM PRN (17:47)
[2017-01-05] MEDS ORDERED: ONDANSETRON *ODT* 4 MG TABLET SL PRN (17:47)
[2017-01-05 21:02] LABS: URINE APPEARANCE CLEAR; URINE BILIRUBIN NEGATIVE (NEGATIVE); URINE BLOOD NEGATIVE (NEGATIVE); URINE COLOR YELLOW; URINE GLUCOSE (UA) NEGATIVE (NEGATIVE); URINE KETONE NEGATIVE (NEGATIVE); URINE LEUK ESTERASE NEGATIVE (NEGATIVE); URINE NITRITE NEGATIVE (NEGATIVE); URINE PROTEIN NEGATIVE (NEGATIVE); URINE UROBILINOGEN NEGATIVE E.U./dl (0.2-1.0)
[2017-01-05] MEDS ORDERED: ZOLPIDEM TARTRATE 5 MG TABLET PO ONE (22:00)
[2017-01-05] MEDS: THIAMINE HCL 100 MG TABLET (FP) PO SCH (22:22)
[2017-01-06] MEDS: chlordiazePOXIDE HCL 25 MG CAPSULE PO SCH ×2 (05:36→10:04)
[2017-01-06] MEDS: FERROUS SO4 325 MG TABLET (FP) PO SCH ×3 (07:11→17:24)
--- NOTE | 2017-01-06 09:54 | PN ---
S CIWA - CIWA Score Nausea/Vomitin Muscle Tremors: 3 Anxiety: 4-Mod. Anxious/Guarded Agitation: 4-Moderately Restless Paroxysmal Sweats: 3 Orientation: 0-Oriented Tacttile Disturbances: 0-None Auditory Disturbances: 0-None Visual Disturbances: 0-None Headache: 0-None Present CIWA-Ar Total Score: 16 BHS COWS - Scale Resting Pulse: 1= [place] 81-100 Sweatin=Flushed/Facial Moisture Restless Observation: 1= Difficult to Sit Still Pupil Size: 0= Normal to Room Light Bone or Joint Aches: 2= Severe Diffuse Aches Runny Nose/ Eye Tearin= Nasal Congestion GI Upset > 30mins: 2= Nausea/Diarrhea Tremor Observation of Outstretched Hands: 2= Slight Tremor Visible Yawning Observation: 1= 1-2x During Session Anxiety or Irritability: 2=Irritable/Anxious Goose Flesh Skin: 0=Smooth Skin COWS Score: 14 S Progress Note (SOAP) Subjective: anxiety,tremors,sweating,interrupted sleep. Pt. has a chronic generalized hyperpigmented rash Objective: 01/06/17 09:53 Vital Signs - 8 hr 01/06/17 06:18 Temperature 96.4 F L Pulse Rate 91 H Respiratory 18 Rate Blood Pressure 138/69 Laboratory Tests 01/05/17 01/05/17 01/05/17 07:50 07:50 07:50 WBC 7.2 D RBC 3.35 L Hgb 10.6 L D Hct 32.0 L D MCV 95.5 MCHC 33.2 RDW 15.7 D Plt Count 219 MPV 8.8 Sodium 136 Potassium 4.4 Chloride 100 Carbon Dioxide 28 D Anion Gap 8 BUN 9 D Creatinine 0.7 Creat Clearance w eGFR > 60 Random Glucose 85 Calcium 8.5 Total Bilirubin 0.3 D AST 28 D ALT 23 Alkaline Phosphatase 82 Total Protein 7.4 Albumin 3.6 Urine Color Urine Appearance Urine pH Ur Specific [place] Urine Protein Urine Glucose (UA) Urine Ketones Urine Blood Urine Nitrite Urine Bilirubin Urine Urobilinogen Ur Leukocyte Esterase RPR Titer Nonreactive 01/05/17 11:41 WBC RBC Hgb Hct MCV MCHC RDW Plt Count MPV Sodium Potassium Chloride Carbon Dioxide Anion Gap BUN Creatinine Creat Clearance w eGFR Random Glucose Calcium Total Bilirubin AST ALT Alkaline Phosphatase Total Protein Albumin Urine Color Yellow Urine Appearance Clear Urine pH 5.0 Ur Specific Imperial 1.014 Urine Protein Negative Urine Glucose (UA) Negative Urine Ketones Negative Urine Blood Negative Urine Nitrite Negative Urine Bilirubin Negative Urine Urobilinogen Negative Ur Leukocyte Esterase Negative RPR Titer labs noted Assessment: 01/06/17 09:54 withdrawal sx. Plan: continue detox
[2017-01-06] MEDS ORDERED: METHADONE HCL 5 MG TABLET (FOR DETOX USE ONLY) PO ONE (10:00)
[2017-01-06] MEDS: PANTOPRAZOLE 40 MG TABLET (FP) PO SCH (10:04)
[2017-01-06] MEDS: PRENATAL VITAMINS W/ FOLIC ACID TABLET (FP) PO SCH (10:04)
[2017-01-06] MEDS: NICOTINE 14 MG/24 HOURS TOPICAL PATCH TD SCH (10:05)
[2017-01-06] MEDS: ACLIDINIUM BROMIDE 400 MCG/INH AERO.POWD IH SCH ×2 (10:05→22:03)
[2017-01-06] MEDS: cloNIDine HCL 0.1 MG TABLET PO SCH ×2 (10:05→22:08)
--- NOTE | 2017-01-06 10:18 | CONSULT ---
[facility] Psychiatric Consult - Data Date of interview: 01/06/17 Admission source: [facility] Identifying data: This is 66 years old male ambulating with cane, multiple medical problems, with psychiatric hospitalization history, history of Bipolar disorder intoxicated with: Alcohol, Heroin and Nicotine Substance Abuse History: - Smoking Cessation. Smoking history: Current every day smoker. Aproximately how many cigarettes per day: 5. Cigars Per Day: 0. Hx Chewing Tobacco Use: No. Initiated information on smoking cessation: Yes. ' Breaking Loose' booklet given: 01/04/17. - Substance & Tx. History. Hx Alcohol Use: Yes. Hx Substance Use: Yes. Substance Use Type: Alcohol, Heroin. Hx Substance Use Treatment: Yes (detox). - Substances Abused. Alcohol. Route: Oral. Frequency: Daily. Amount used: Beer 2(6packs). Age of first use : 23. Date of Last Use: 01/04/17. Heroin. Route: Inhalation. Frequency: Daily. Amount used: 5 bags. Age of first use: 18. Date of Last Use: 01/04/17 Medical History: LBP. COPD, HTN, GERD, Hep A,B,C+, Weight loss, mAnemia history Psychiatric History: Patient reports to carry Bipolar Dixorder with most recent psychiatric admission on mopre then 10 years ago, currently stable on: Seroquel 300mg poqd, 400mg p[o qhs. Wellbutrin XR 150mg poqd Physical/Sexual Abuse/Trauma History: Denies Additional Comment: Seroquel 300mg poqd, 400mg p[o qhs. Wellbutrin XR 150mg poqd Mental Status Exam - Mental Status Exam Alert and Oriented to: Person Cognitive Function: Fair Patient Appearance: Well Groomed Mood: Apprehensive Affect: Mood Congruent Patient Behavior: Cooperative Speech Pattern: Excessive Voice Loudness: Normal Thought Process: Circumstantial, Goal Oriented Thought Disorder: Being Controlled Hallucinations: Denies Suicidal Ideation: Denies Homicidal Ideation: Denies Insight/Judgement: Fair Sleep: Difficulty falling asleep Appetite: Weight loss Muscle strength/Tone: Mild Hypotonicity Gait/Station: Shuffling Additional Comments: Seroquel 300mg poqd, 400mg p[o qhs. Wellbutrin XR 150mg poqd Psychiatric Findings - Problem List ([place] 1, 2,3) (1) Alcohol dependence with uncomplicated withdrawal Current Visit: No Status: Acute (2) Nicotine dependence Current Visit: No Status: Acute Qualifiers: Nicotine product type: cigarettes Substance use status: uncomplicated Qualified Code(s): F17.210 - Nicotine dependence, cigarettes, uncomplicated Comment: . (3) Opioid dependence with withdrawal Current Visit: No Status: Acute (4) Substance induced mood disorder Current Visit: No Status: Acute (5) Bipolar disorder Current Visit: No Status: Chronic Comment: Historical diagnosis. (6) Bipolar I disorder Current Visit: No Status: Suspected (7) Substance-induced sleep disorder Current Visit: No Status: Suspected - Initial Treatment Plan Initial Treatment Plan: Seroquel 300mg poqd, 400mg p[o qhs. Wellbutrin XR 150mg poqd
[2017-01-06] MEDS: QUEtiapine FUMARATE 300 MG TABLET PO SCH (11:22)
[2017-01-06] MEDS: TRIAMCINOLONE ACET 0.5% OINT 15 GM TUBE TP SCH ×4 (11:23→22:03)
--- NOTE | 2017-01-06 12:10 | EKG ---
Test Reason : Blood Pressure : / mmHG Vent. Rate : 084 BPM Atrial Rate : 084 BPM P-R Int : 166 ms QRS Dur : 084 ms QT Int : 354 ms P-R-T Axes : 015 057 055 degrees QTc Int : 418 ms NORMAL SINUS RHYTHM MODERATE VOLTAGE CRITERIA FOR LVH, MAY BE NORMAL VARIANT BORDERLINE ECG WHEN COMPARED WITH ECG OF 04-JAN-2017 20:11, ST NO LONGER ELEVATED IN INFERIOR LEADS NO SIGNIFICANT CHANGE FROM PREVIOUS EKG Confirmed by VERENA HINES MD ([id number]) on 01/06/2017 12:10:39 PM Referred By: Confirmed By:VERENA HINES MD
--- NOTE | 2017-01-06 16:22 | EKG ---
Test Reason : Blood Pressure : / mmHG Vent. Rate : 078 BPM Atrial Rate : 078 BPM P-R Int : 184 ms QRS Dur : 084 ms QT Int : 376 ms P-R-T Axes : 036 055 180 degrees QTc Int : 428 ms NORMAL SINUS RHYTHM VOLTAGE CRITERIA FOR LEFT VENTRICULAR HYPERTROPHY ABNORMAL ECG WHEN COMPARED WITH ECG OF 24-SEP-2016 21:14, Confirmed by EVAN MARIE MD ([id number]) on 01/06/2017 4:22:01 PM Referred By: Confirmed By:EVAN MARIE MD
[2017-01-06] MEDS: chlordiazePOXIDE 5 MG CAPSULE PO SCH ×2 (17:24→22:03)
[2017-01-06] MEDS: THIAMINE HCL 100 MG TABLET (FP) PO SCH (22:03)
[2017-01-06] MEDS: QUEtiapine FUMARATE 400 MG TABLET PO SCH (22:03)
[2017-01-07] MEDS: chlordiazePOXIDE 5 MG CAPSULE PO SCH ×2 (05:25→10:07)
[2017-01-07] MEDS: ACETAMINOPHEN 325 MG TABLET (FP) PO PRN (06:21)
[2017-01-07] MEDS: FERROUS SO4 325 MG TABLET (FP) PO SCH ×3 (07:14→17:28)
[2017-01-07] MEDS ORDERED: METHADONE HCL 5 MG TABLET (FOR DETOX USE ONLY) PO ONE (10:00)
[2017-01-07] MEDS: cloNIDine HCL 0.1 MG TABLET PO SCH ×2 (10:07→22:11)
[2017-01-07] MEDS: TRIAMCINOLONE ACET 0.5% OINT 15 GM TUBE TP SCH ×4 (10:07→22:10)
[2017-01-07] MEDS: PRENATAL VITAMINS W/ FOLIC ACID TABLET (FP) PO SCH (10:07)
[2017-01-07] MEDS: METHYL SALICYLATE/MENTHOL OINT 30 GM TUBE TP SCH ×2 (10:08→22:10)
[2017-01-07] MEDS: QUEtiapine FUMARATE 300 MG TABLET PO SCH (10:09)
[2017-01-07] MEDS: NICOTINE 14 MG/24 HOURS TOPICAL PATCH TD SCH (10:09)
[2017-01-07] MEDS: ACLIDINIUM BROMIDE 400 MCG/INH AERO.POWD IH SCH ×2 (10:09→22:36)
[2017-01-07] MEDS: PANTOPRAZOLE 40 MG TABLET (FP) PO SCH (10:09)
--- NOTE | 2017-01-07 10:31 | PN ---
BHS Progress Note (SOAP) Subjective: ANXIETY,LOWER BACK PAIN. Objective: 01/07/17 10:30 Vital Signs Temperature 95.8 F L 01/07/17 09:37 Pulse Rate 88 01/07/17 09:37 Respiratory Rate 18 01/07/17 09:37 Blood Pressure 100/62 01/07/17 09:37 O2 Sat by Pulse Oximetry (%) Assessment: 01/07/17 10:30 WITHDRAWAL SX CHRONIC BACK PAIN Plan: CONTINUE DETOX CANE FOR AMBULATION
[2017-01-07] MEDS: chlordiazePOXIDE HCL 10 MG CAPSULE PO SCH ×2 (17:27→22:11)
[2017-01-07] MEDS: THIAMINE HCL 100 MG TABLET (FP) PO SCH (22:10)
[2017-01-07] MEDS: QUEtiapine FUMARATE 400 MG TABLET PO SCH (22:10)
[2017-01-07] MEDS: diphenhydrAMINE HCL 50 MG CAPSULE PO PRN (22:11)
[2017-01-08] MEDS: chlordiazePOXIDE HCL 10 MG CAPSULE PO SCH ×2 (05:57→10:03)
[2017-01-08] MEDS: FERROUS SO4 325 MG TABLET (FP) PO SCH ×3 (07:46→17:10)
[2017-01-08] MEDS ORDERED: METHADONE HCL 10 MG TABLET (FOR DETOX USE ONLY) PO ONE (10:00)
[2017-01-08] MEDS: ACLIDINIUM BROMIDE 400 MCG/INH AERO.POWD IH SCH ×2 (10:03→22:04)
[2017-01-08] MEDS: PANTOPRAZOLE 40 MG TABLET (FP) PO SCH (10:03)
[2017-01-08] MEDS: PRENATAL VITAMINS W/ FOLIC ACID TABLET (FP) PO SCH (10:03)
[2017-01-08] MEDS: TRIAMCINOLONE ACET 0.5% OINT 15 GM TUBE TP SCH ×4 (10:03→22:03)
[2017-01-08] MEDS: cloNIDine HCL 0.1 MG TABLET PO SCH ×2 (10:03→22:03)
[2017-01-08] MEDS: METHYL SALICYLATE/MENTHOL OINT 30 GM TUBE TP SCH ×2 (10:04→22:03)
[2017-01-08] MEDS: NICOTINE 14 MG/24 HOURS TOPICAL PATCH TD SCH (10:04)
--- NOTE | 2017-01-08 11:04 | PN ---
BHS Progress Note (SOAP) Subjective: ANXIETY,SWEATS,BODY ACHES, INTERMITTENT SLEEP Objective: 01/08/17 11:03 Vital Signs Temperature 97.8 F 01/08/17 09:56 Pulse Rate 84 01/08/17 09:56 Respiratory Rate 18 01/08/17 09:56 Blood Pressure 135/70 01/08/17 09:56 O2 Sat by Pulse Oximetry (%) Assessment: 01/08/17 11:03 WITHDRAWAL SX Plan: CONTINUE DETOX
[2017-01-08] MEDS: QUEtiapine FUMARATE 400 MG TABLET PO SCH (22:03)
[2017-01-08] MEDS: THIAMINE HCL 100 MG TABLET (FP) PO SCH (22:03)
[2017-01-09] MEDS: ACETAMINOPHEN 325 MG TABLET (FP) PO PRN (05:50)
[2017-01-09] MEDS ORDERED: METHADONE HCL 5 MG TABLET (FOR DETOX USE ONLY) PO ONE (06:00)
[2017-01-09 06:25] VITALS: BP 121/73; PULSE 87; TEMP 96.3
[2017-01-09] MEDS: FERROUS SO4 325 MG TABLET (FP) PO SCH (07:19)
[2017-01-09] MEDS ORDERED: QUEtiapine FUMARATE 200 MG TABLET PO SCH (07:41)
--- NOTE | 2017-01-09 08:46 | PN ---
Psychiatric Progress Note Vital Signs: Vital Signs Period Temp Pulse Resp BP Sys/Ojeda Pulse Ox Last 24 Hr 95.8 F-97.8 F 79-93 18-19 107-140/63-73 Date of Session: 01/09/17 Chief Complaint:: oversedation HPI: As per nursing repoprt patient is oversedated in am after taking Seroquel 400mg po qhs, patient has been insisted on this order on admission due to severe insomnia Current Medications: Active Medications Generic Name Dose Route Start Last Admin Trade Name Freq PRN Reason Stop Dose Admin Acetaminophen 650 mg 01/04/17 16:39 01/09/17 05:50 Tylenol - PO 650 mg Q4H PRN Administration FEVER OR PAIN Aclidinium [place] 1 puff 01/04/17 22:00 01/08/17 22:04 Tudorza - IH 1 puff BID SHAMAR Administration Al Hydroxide/Mg Hydroxide 30 ml 01/04/17 16:39 Mylanta Oral Suspension - PO Q6H PRN DYSPEPSIA Albuterol Sulfate 2 puff 01/04/17 16:43 Ventolin Hfa Inhaler - IH Q4H PRN SHORT OF BREATH/WHEEZING Bupropion HCl 150 mg 01/06/17 11:15 01/08/17 10:03 Wellbutrin Xl - PO 150 mg DAILY SHAMAR Administration Clonidine 0.1 mg 01/06/17 10:00 01/08/17 22:03 Catapres - PO 0.1 mg BID SHAMAR Administration Diphenhydramine HCl 50 mg 01/04/17 16:39 01/07/17 22:11 Benadryl - PO 50 mg HSMR1 PRN Administration INSOMNIA Eucalyptus/Menthol/Phenol/Sorbitol 1 each 01/04/17 16:39 Cepastat Lozenge - MM Q4H PRN SORE THROAT Ferrous Sulfate 325 mg 01/04/17 17:30 01/09/17 07:19 Feosol - PO 325 mg TIDCM SHAMAR Administration Guaifenesin 10 ml 01/04/17 16:39 Robitussin Dm - PO Q6H PRN COUGH Hydroxyzine Pamoate 50 mg 01/04/17 16:39 01/06/17 03:23 Vistaril - PO 50 mg Q4H PRN Administration AGITATION Ibuprofen 400 mg 01/04/17 16:39 Motrin - PO Q6H PRN SEVERE PAIN Loperamide HCl 4 mg 01/04/17 16:39 Imodium - PO Q6H PRN DIARRHEA Magnesium Citrate 300 ml 01/04/17 16:39 Citroma - PO Q48H PRN CONSTIPATION Magnesium Hydroxide 30 ml 01/04/17 16:39 Milk Of Magnesia - PO DAILY PRN CONSTIPATION Methyl Salicylate 1 applic 01/07/17 10:00 01/08/17 22:03 Ehsan-Ortiz - TP 1 applic BID SHAMAR Administration Nicotine 14 mg 01/04/17 16:45 01/08/17 10:04 Nicoderm Patch - TD Not Given DAILY SHAMAR Nicotine Polacrilex 2 mg 01/04/17 16:39 Nicorette Gum - BC Q2H PRN NICOTINE REPLACEMENT RX Ondansetron HCl 8 mg 01/05/17 17:47 Zofran Odt - SL Q4H PRN NAUSEA AND/OR VOMITING Pantoprazole Sodium 40 mg 01/04/17 16:45 01/08/17 10:03 Protonix - PO 40 mg DAILY SHAMAR Administration Multivit/Folic Acid/Iron 1 tab 01/05/17 10:00 01/08/17 10:03 Vitamins (Sjr) - PO 1 tab DAILY SHAMAR Administration Pseudoephedrine/Triprolidine 1 combo 01/04/17 16:39 Actifed - PO TID PRN NASAL CONGESTION Quetiapine Fumarate 200 mg 01/09/17 07:41 Seroquel - PO HS SHAMAR Thiamine HCl 100 mg 01/04/17 22:00 01/08/17 22:03 Vitamin B1 - PO 100 mg HS SHAMAR Administration Triamcinolone Acetonide 1 applic 01/06/17 10:00 01/08/17 22:03 Aristocort 0.5% Ointment - TP 1 applic QID SHAMAR Administration Trimethobenzamide HCl 200 mg 01/05/17 17:47 01/05/17 18:14 Tigan Injection - IM 200 mg Q6H PRN Administration NAUSEA Medication(s) Change(s): Seroquel 200mg po qhs Mental Status Exam - Mental Status Exam Alert and Oriented to: Person Cognitive Function: Fair Patient Appearance: Unkempt Mood: Sad Affect: Flat Patient Behavior: Sedated Speech Pattern: Delayed Voice Loudness: Mildly Soft/Quiet Thought Process: Circumstantial Thought Disorder: Being Controlled Hallucinations: Denies Suicidal Ideation: Denies Homicidal Ideation: Denies Insight/Judgement: Impaired Sleep: Well Appetite: Fair Muscle strength/Tone: Mild Hypotonicity Gait/Station: Shuffling Additional Comments: Seroquel 200mg po qhs Psychiatric Treatment Plan - Problem List (1) Alcohol dependence with uncomplicated withdrawal Current Visit: No (2) Nicotine dependence Current Visit: No Qualifiers: Nicotine product type: cigarettes Substance use status: uncomplicated Qualified Code(s): F17.210 - Nicotine dependence, cigarettes, uncomplicated Comment: . (3) Opioid dependence with withdrawal Current Visit: No (4) Substance induced mood disorder Current Visit: No (5) Bipolar disorder Current Visit: No Comment: Historical diagnosis. (6) Bipolar I disorder Current Visit: No (7) Substance-induced sleep disorder Current Visit: No Initial treatment plan: Seroquel 200mg po qhs
--- NOTE | 2017-01-09 11:44 | DS ---
[facility] Detox Discharge Summary Admission Date: 01/04/17 Discharge Date: 01/09/17 - History Present History: Alcohol Dependence, Opioid Dependence Additional Comments: DETOX COMPLETED. ALERT O X 3. NAD. Pertinent Past History: COPD HEPC; HEP A, AND B ANEMIA DEPRESSION - Physical Exam Results Vital Signs: Vital Signs Temperature 96.3 F L 01/09/17 06:23 Pulse Rate 87 01/09/17 06:23 Respiratory Rate 18 01/09/17 06:23 Blood Pressure 121/73 01/09/17 06:23 O2 Sat by Pulse Oximetry (%) Pertinent Admission Physical Exam Findings: WITHDRAWAL SX - Treatment Hospital Course: Detox Protocol Followed, Detoxed Safely, Responded well, Discharged Condition Good - Medication Discharge Medications: Ambulatory Orders Bupropion HCl [Wellbutrin Xl -] 150 mg PO DAILY #30 tab.sr.24h 09/25/16 Quetiapine Fumarate [Seroquel -] 400 mg PO HS 11/23/16 Gabapentin [Neurontin -] 100 mg PO TID #60 capsule 11/25/16 Albuterol Sulfate Inhaler - [Ventolin HFA Inhaler -] 2 puff IH Q4H PRN #1 inhaler 11/28/16 Ferrous Sulfate [Feosol] 325 mg PO TIDCM #90 ud 11/28/16 Ibuprofen [Motrin -] 400 mg PO Q6H PRN #20 tablet 11/28/16 Pantoprazole Sodium [Protonix] 40 mg PO DAILY #30 tablet. 11/28/16 Quetiapine Fumarate [Seroquel -] 300 mg PO DAILY 01/04/17 Bupropion HCl [Wellbutrin Xl -] 150 mg PO DAILY #30 tab.sr.24h 01/06/17 Quetiapine Fumarate [Seroquel -] 300 mg PO DAILY #30 tab 01/06/17 Quetiapine Fumarate [Seroquel -] 400 mg PO HS #30 tab 01/06/17 Quetiapine Fumarate [Seroquel -] 200 mg PO HS #30 tab 01/09/17 - Diagnosis (1) Alcohol dependence with uncomplicated withdrawal Status: Acute (2) Nicotine dependence Status: Acute Qualifiers: Nicotine product type: cigarettes Substance use status: in withdrawal Qualified Code(s): F17.213 - Nicotine dependence, cigarettes, with withdrawal (3) Opioid dependence with withdrawal Status: Acute (4) COPD (chronic obstructive pulmonary disease) Status: Chronic Qualifiers: COPD type: chronic bronchitis Chronic bronchitis type: simple Qualified Code(s): J41.0 - Simple chronic bronchitis (5) Chronic low back pain Status: Chronic Qualifiers: Back pain laterality: unspecified Sciatica presence: without sciatica Qualified Code(s): M54.5 - Low back pain; G89.29 - Other chronic pain (6) Essential hypertension Status: Chronic (7) GERD (gastroesophageal reflux disease) Status: Chronic Qualifiers: Esophagitis presence: without esophagitis Qualified Code(s): K21.9 - Gastro-esophageal reflux disease without esophagitis (8) Hepatitis C carrier Status: Chronic (9) Use of cane as ambulatory aid Status: Chronic (10) Weight loss Status: Chronic (11) Anemia Status: Suspected Qualifiers: Anemia type: iron deficiency Iron deficiency anemia type: other iron deficiency Qualified Code(s): D50.8 - Other iron deficiency anemias (12) Bipolar I disorder Status: Suspected (13) Substance-induced sleep disorder Status: Suspected - AMA Did Patient Leave Against Medical Advice: No
== END 2017-01-09 10:33 | disposition home or self-care (01) | DRG 773 ==
LOC: YASAS 14:04 → Y3N 17:04
PROVIDERS: ADMIT Internal Medicine; ATTEND Internal Medicine
PROC: HZ2ZZZZ Detoxification Services for Substance Abuse Treatment (ICD-10-PCS; principal; 2017-01-09)
DX: F11.23 Opioid dependence with withdrawal (principal); F10.230 Alcohol dependence with withdrawal, uncomplicated; F17.210 Nicotine dependence, cigarettes, uncomplicated; F19.24 Other psychoactive substance dependence with psychoactive substance-induced mood disorder; F19.282 Other psychoactive substance dependence with psychoactive substance-induced sleep disorder; F31.89 Other bipolar disorder; J41.0 Simple chronic bronchitis
CPT/HCPCS: 36415; 80053; 81003; 85027; 86593; 93005; 93010

== ENCOUNTER 2017-02-28 13:44 | Inpatient (IN) | payer OTHER ==
[2017-02-28 19:07] VITALS: BMI 19.8
--- NOTE | 2017-02-28 21:05 | HP ---
COWS - Scale Resting Pulse: 2= [place] 101-120 Sweatin=Flushed/Facial Moisture Restless Observation: 1= Difficult to Sit Still Pupil Size: 0= Normal to Room Light Bone or Joint Aches: 2= Severe Diffuse Aches Runny Nose/ Eye Tearin= Runny Nose/Eyes GI Upset > 30mins: 3= Vomiting/Diarrhea Tremor Observation: 2= Slight Tremor Visible Yawning Observation: 0= None Anxiety or Irritability: 2=Irritable/Anxious Goose Flesh Skin: 0=Smooth Skin COWS Score: 16 CIWA Score - CIWA Score Nausea/Vomitin Muscle Tremors: 3 Anxiety: 4-Mod. Anxious/Guarded Agitation: 4-Moderately Restless Paroxysmal Sweats: 2 Orientation: 3-Disoriented Date>2 days Tacttile Disturbances: 0-None Auditory Disturbances: 0-None Visual Disturbances: 0-None Headache: 0-None Present CIWA-Ar Total Score: 18 Admission ROS BHS - HPI Chief Complaint: with drawal sx Allergies/Adverse Reactions: Allergies Allergy/AdvReac Type Severity Reaction Status Date / Time No Known Allergies Allergy Verified 01/04/17 16:33 History of Present Illness: 66 years old male with long history of alcohol opiate nicotine dependence has copd and bipolar ii is admitted to detox Exam Limitations: No Limitations - Ebola screening Have you traveled outside of the country in the last 21 days: No Have you had contact with anyone from an Ebola affected area: No Have you been sick,other than usual withdrawal symptoms: No Do you have a fever: No - Review of Systems Constitutional: Chills, Loss of Appetite, Changes in sleep, Unintentional Wgt. Loss, Unexplained wgt Loss EENT: reports: Dental Problems (lost upper and lower denture) Respiratory: reports: SOB with Exertion, Productive cough Cardiac: reports: No Symptoms Reported GI: reports: Diarrhea, Nausea, Poor Appetite, Poor Fluid Intake, Vomiting, Abdominal cramping : reports: No Symptoms Reported Musculoskeletal: reports: Back Pain, Joint Pain, Muscle Pain, Neck Pain Integumentary: reports: No Symptoms Reported Neuro: reports: Seizure (alcohol withdrawl last episode 02/20/17), Tremors Endocrine: reports: No Symptoms Reported Psychiatric: reports: Judgement Intact Other Systems: Reviewed and Negative Patient History - Patient Medical History Hx Anemia: No Hx Asthma: No Hx Chronic Obstructive Pulmonary Disease (COPD): Yes Hx Cancer: No Hx Cardiac Disorders: No Hx Congestive Heart Failure: No Hx Hypertension: No Hx Hypercholesterolemia: No Hx Pacemaker: No HX Cerebrovascular Accident: No Hx Seizures: No Hx Dementia: No Hx Diabetes: No Hx Gastrointestinal Disorders: No Hx Liver Disease: Yes (hepatitis a,b,c) Hx Genitourinary Disorders: No Hx Sexually Transmitted Disorders: No Hx Renal Disease (ESRD): No Hx Thyroid Disease: No Hx Human Immunodeficiency Virus (HIV): No Hx Hepatitis C: Yes (incomplete treatment) Hx Depression: No Hx Suicide Attempt: Yes (2013 PILL OD) Hx Bipolar Disorder: Yes (seroquel wellbutrin) Hx Schizophrenia: No - Patient Surgical History Past Surgical History: Yes Hx Neurologic Surgery: No Hx Cataract Extraction: No Hx Cardiac Surgery: No Hx Lung Surgery: No Hx Breast Surgery: No Hx Breast Biopsy: No Hx Abdominal Surgery: No Hx Appendectomy: No Hx Cholecystectomy: No Hx Genitourinary Surgery: No Hx Orthopedic Surgery: Yes (left cheek bone and nasal surgery 1970) Other Surgical History: reconstructive sx, nose and left cheekbone in 1971 Anesthesia Reaction: No - PPD History Previous Implant?: Yes Documented Results: Negative w/proof Implanted On Prior [facility] Admission?: Yes Date: 06/14/16 Results: 0mm PPD to be Administered?: No - Smoking Cessation Smoking history: Current every day smoker Have you smoked in the past 12 months: Yes Aproximately how many cigarettes per day: 10 Cigars Per Day: 0 Hx Chewing Tobacco Use: No Initiated information on smoking cessation: Yes 'Breaking Loose' booklet given: 02/28/17 - Substance & Tx. History Hx Alcohol Use: Yes Hx Substance Use: Yes Substance Use Type: Alcohol, Opiates Hx Substance Use Treatment: Yes - Substances Abused Alcohol Route: Oral Frequency: Daily Amount used: 12 beer 16 oz Age of first use: 27 Date of Last Use: 02/28/17 Heroin Route: Inhalation Frequency: Daily Amount used: 5 -8 bags Age of first use: 18 Date of Last Use: 02/28/17 Family Disease History - Family Disease History Family Disease History: Respiratory: Father (), Other: Mother ( ALCOHOLIC Cirrhosis), Brother (ALCOHOL), Sister (ALCOHOL) Admission Physical Exam BHS - Vital Signs Vital Signs: Vital Signs - 24 hr 02/28/17 19:06 Temperature 97.8 F Pulse Rate 116 H Respiratory 18 Rate Blood Pressure 144/70 - Physical General Appearance: Yes: Appropriately Dressed, Mild Distress, Alcohol on Breath , Thin, Tremorous, Irritable, Sweating, Anxious HEENTM: Yes: Hearing grossly Normal, Normal ENT Inspection, Normocephalic, Normal Voice Respiratory: Yes: Chest Non-Tender, No Respiratory Distress, No Accessory Muscle Use, Hyperresonant, Inspiration Neck: Yes: Supple, Trachea in good position Breast: Yes: Breasts Symetrical Cardiology: Yes: Regular Rhythm, S1, S2, Tachycardia Abdominal: Yes: Non Tender, Soft Genitourinary: Yes: Within Normal Limits Back: Yes: Normal Inspection Musculoskeletal: Yes: full range of Motion, Gait Steady, Back pain Extremities: Yes: Normal Range of Motion, Non-Tender, Tremors Neurological: Yes: Alert, Motor Strength 5/5, Normal Response, Depressed Affect Integumentary: Yes: Warm Lymphatic: Yes: Within Normal Limits - Diagnostic (1) Alcohol dependence with uncomplicated withdrawal Current Visit: Yes Status: Acute (2) Nicotine dependence Current Visit: Yes Status: Acute Qualifiers: Nicotine product type: cigarettes Substance use status: in withdrawal Qualified Code(s): F17.213 - Nicotine dependence, cigarettes, with withdrawal Comment: . (3) Opioid dependence with withdrawal Current Visit: Yes Status: Acute (4) COPD (chronic obstructive pulmonary disease) Current Visit: Yes Status: Acute Qualifiers: COPD type: chronic bronchitis Chronic bronchitis type: simple Qualified Code(s): J41.0 - Simple chronic bronchitis Comment: . (5) Hepatitis A Current Visit: Yes Status: Chronic Qualifiers: Hepatic coma status: without hepatic coma Qualified Code(s): B15.9 - Hepatitis A without hepatic coma (6) Hepatitis B Current Visit: Yes Status: Chronic Qualifiers: Viral hepatitis chronicity: carrier (7) Hepatitis C carrier Current Visit: Yes Status: Chronic (8) Use of cane as ambulatory aid Current Visit: Yes Status: Chronic (9) Weight loss Current Visit: Yes Status: Acute (10) Bipolar I disorder Current Visit: Yes Status: Suspected (11) Arthritis, hip Current Visit: Yes Status: Acute Cleared for Admission S - Detox or Rehab [facility] Level of Care: Medically Managed Detox Regimen/Protocol: Methadone/Librium S Breath Alcohol Content Breath Alcohol Content: 0.101 Urine Drug Screen - Results Drug Screen Negative: No Urine Drug Screen Results: OPI-Opiates, OXY-Oxycodone
[2017-02-28] MEDS ORDERED: METHADONE HCL 10 MG TABLET (FOR DETOX USE ONLY) PO ONE ×2 (21:09→23:00)
[2017-02-28] MEDS ORDERED: P-EPHED 60MG/TRIPROLIDI 2.5MG TABLET PO PRN (21:09)
[2017-02-28] MEDS ORDERED: guaiFENesin/D-METHORPHAN HB 10 ML UNIT-DOSE CUPS PO PRN (21:09)
[2017-02-28] MEDS ORDERED: MENTHOL/PHENOL 1 EACH UD MM PRN (21:09)
[2017-02-28] MEDS ORDERED: MAGNESIUM CITRATE 300 ML BOTTLE PO PRN (21:09)
[2017-02-28] MEDS ORDERED: MAG HYDROX/AL HYDROX/SIMETH 30 ML UNIT-DOSE CUP PO PRN (21:09)
[2017-02-28] MEDS ORDERED: LOPERAMIDE HCL 2 MG CAPSULE PO PRN (21:09)
[2017-02-28] MEDS ORDERED: NICOTINE POLACRILEX 2 MG GUM BC PRN (21:09)
[2017-02-28] MEDS ORDERED: MAGNESIUM HYDROX 2400MG/30ML ORAL SUSPENSION 30 ML CUP PO PRN (21:09)
[2017-02-28] MEDS ORDERED: chlordiazePOXIDE HCL 25 MG CAPSULE PO PRN (21:09)
[2017-02-28] MEDS: THIAMINE HCL 100 MG TABLET (FP) PO SCH (23:06)
[2017-02-28] MEDS: GABAPENTIN 100 MG CAPSULE (FP) PO SCH (23:06)
[2017-02-28] MEDS: diphenhydrAMINE HCL 50 MG CAPSULE PO PRN (23:06)
[2017-02-28] MEDS: chlordiazePOXIDE HCL 25 MG CAPSULE PO SCH (23:07)
[2017-02-28 23:22] LABS: URINE APPEARANCE CLEAR; URINE BILIRUBIN NEGATIVE (NEGATIVE); URINE BLOOD NEGATIVE (NEGATIVE); URINE COLOR LTYELLOW; URINE GLUCOSE (UA) NEGATIVE (NEGATIVE); URINE KETONE NEGATIVE (NEGATIVE); URINE LEUK ESTERASE NEGATIVE (NEGATIVE); URINE NITRITE NEGATIVE (NEGATIVE); URINE PROTEIN NEGATIVE (NEGATIVE); URINE UROBILINOGEN NEGATIVE E.U./dl (0.2-1.0)
[2017-03-01] MEDS: chlordiazePOXIDE HCL 25 MG CAPSULE PO SCH ×4 (05:14→22:12)
[2017-03-01] MEDS: ACETAMINOPHEN 325 MG TABLET (FP) PO PRN (05:15)
[2017-03-01] MEDS: GABAPENTIN 100 MG CAPSULE (FP) PO SCH ×3 (06:01→22:13)
[2017-03-01] MEDS ORDERED: METHADONE HCL 10 MG TABLET (FOR DETOX USE ONLY) PO SCH (10:00)
[2017-03-01 10:04] LABS: MCH 31.5 pg (25.7-33.7); MCHC 33.2 g/dl (32.0-35.9); MEAN CELL VOLUME 94.9 fl (80-96); MEAN PLT VOLUME 8.7 fl (7.5-11.1); PLATELET COUNT 187 K/MM3 (134-434); WHITE BLOOD COUNT 6.8 K/mm3 (4.0-10.0)
[2017-03-01] MEDS: NICOTINE 14 MG/24 HOURS TOPICAL PATCH TD SCH (10:42)
[2017-03-01] MEDS: PRENATAL VITAMINS W/ FOLIC ACID TABLET (FP) PO SCH (10:43)
[2017-03-01 10:45] LABS: ALBUMIN 3.4 g/dl (3.4-5.0); ALK PHOS 69 U/L (45-117); ANION GAP 10 (8-16); BILIRUBIN,TOTAL 0.4 mg/dL (0.2-1.0); CALCIUM 8.5 mg/dL (8.5-10.1); CO2 24 mmol/L (21-32); COCKROFT - GAULT 69.15; CREATININE 0.9 mg/dL (0.7-1.3); GLUCOSE,RANDOM 84 mg/dL (74-106); SGOT/AST 16 U/L (15-37); SGPT/ALT 18 U/L (12-78); TOT PROT 7.3 g/dl (6.4-8.2)
--- NOTE | 2017-03-01 16:12 | PN ---
[facility] CIWA - CIWA Score Nausea/Vomitin-No Nausea/No Vomiting Muscle Tremors: 4-Moderate,w/Arms Extend Anxiety: 1-Mildly Anxious Agitation: 2 Paroxysmal Sweats: 3 Orientation: 0-Oriented Tacttile Disturbances: 3-Moderate Itch/Numb/Burn Auditory Disturbances: 0-None Visual Disturbances: 3-Moderate Sensitivity Headache: 0-None Present CIWA-Ar Total Score: 16 S COWS - Scale Resting Pulse: 1= [place] 81-100 Sweatin= Chills/Flushing Restless Observation: 1= Difficult to Sit Still Pupil Size: 0= Normal to Room Light Bone or Joint Aches: 2= Severe Diffuse Aches Runny Nose/ Eye Tearin= None GI Upset > 30mins: 2= Nausea/Diarrhea Tremor Observation of Outstretched Hands: 2= Slight Tremor Visible Yawning Observation: 1= 1-2x During Session Anxiety or Irritability: 2=Irritable/Anxious Goose Flesh Skin: 0=Smooth Skin COWS Score: 12 S Progress Note (SOAP) Subjective: Interrupted sleep, Tremors, Back Ache, Diarrhea, Sweating. Patient reports plaque-like skin lesions on right leg and buttock areas. Pt. reports that lesions feel itchy. papular lesions noted in affected areas. No bleeding or unusual discharge noted at affected sites. Objective: PT. A & O X 3, OBSERVED AMBULATING ON UNIT. 03/01/17 16:07 Vital Signs Temperature 97.5 F L 03/01/17 10:00 Pulse Rate 87 03/01/17 10:00 Respiratory Rate 18 03/01/17 10:00 Blood Pressure 125/64 03/01/17 10:00 O2 Sat by Pulse Oximetry (%) Laboratory Last Values WBC 6.8 K/mm3 (4.0-10.0) 03/01/17 08:00 RBC 3.26 M/mm3 (4.00-5.60) L 03/01/17 08:00 Hgb 10.3 GM/dL (11.7-16.9) L 03/01/17 08:00 Hct 31.0 % (35.4-49) L 03/01/17 08:00 MCV 94.9 fl (80-96) 03/01/17 08:00 MCHC 33.2 g/dl (32.0-35.9) 03/01/17 08:00 RDW 16.0 % (11.9-15.9) H 03/01/17 08:00 Plt Count 187 K/MM3 (134-434) 03/01/17 08:00 MPV 8.7 fl (7.5-11.1) 03/01/17 08:00 Sodium 135 mmol/L (136-145) L 03/01/17 08:00 Potassium 4.2 mmol/L (3.5-5.1) 03/01/17 08:00 Chloride 101 mmol/L (98-107) 03/01/17 08:00 Carbon Dioxide 24 mmol/L (21-32) 03/01/17 08:00 Anion Gap 10 (8-16) 03/01/17 08:00 BUN 10 mg/dL (7-18) 03/01/17 08:00 Creatinine 0.9 mg/dL (0.7-1.3) D 03/01/17 08:00 Creat Clearance w eGFR > 60 (>60) 03/01/17 08:00 Random Glucose 84 mg/dL (74-106) 03/01/17 08:00 Calcium 8.5 mg/dL (8.5-10.1) 03/01/17 08:00 Total Bilirubin 0.4 mg/dL (0.2-1.0) D 03/01/17 08:00 AST 16 U/L (15-37) D 03/01/17 08:00 ALT 18 U/L (12-78) D 03/01/17 08:00 Alkaline Phosphatase 69 U/L (45-117) 03/01/17 08:00 Total Protein 7.3 g/dl (6.4-8.2) 03/01/17 08:00 Albumin 3.4 g/dl (3.4-5.0) 03/01/17 08:00 Urine Color Ltyellow 02/28/17 21:58 Urine Appearance Clear 02/28/17 21:58 Urine pH 6.0 (5.0-8.0) 02/28/17 21:58 Ur Specific [place] 1.008 (1.001-1.035) 02/28/17 21:58 Urine Protein Negative (NEGATIVE) 02/28/17 21:58 Urine Glucose (UA) Negative (NEGATIVE) 02/28/17 21:58 Urine Ketones Negative (NEGATIVE) 02/28/17 21:58 Urine Blood Negative (NEGATIVE) 02/28/17 21:58 Urine Nitrite Negative (NEGATIVE) 02/28/17 21:58 Urine Bilirubin Negative (NEGATIVE) 02/28/17 21:58 Urine Urobilinogen Negative E.U./dl (0.2-1.0) 02/28/17 21:58 Ur Leukocyte Esterase Negative (NEGATIVE) 02/28/17 21:58 RPR Titer Nonreactive (NONREACTIVE) 03/01/17 08:00 LABS NOTED. Assessment: 03/01/17 16:09 WITHDRAWAL SYMPTOMS. Plan: CONTINUE DETOX. REPEAT CBC TOMORROW. ADVISED PATIENT TO FOLLOW-UP WITH [facility] / REHAB MEDICAL PROVIDER AFTER DISCHARGE FROM DETOX FOR GENERAL MEDICAL ASSESSMENT, FOR SKIN CONDITION, AND FOR ABNORMAL ADMISSION LAB VALUES.
--- NOTE | 2017-03-01 16:14 | EKG ---
Test Reason : Blood Pressure : / mmHG Vent. Rate : 078 BPM Atrial Rate : 078 BPM P-R Int : 184 ms QRS Dur : 086 ms QT Int : 364 ms P-R-T Axes : 016 063 057 degrees QTc Int : 414 ms NORMAL SINUS RHYTHM MINIMAL VOLTAGE CRITERIA FOR LVH, MAY BE NORMAL VARIANT CANNOT RULE OUT ANTERIOR INFARCT , AGE UNDETERMINED ABNORMAL ECG WHEN COMPARED WITH ECG OF 05-JAN-2017 08:52, NO SIGNIFICANT CHANGE WAS FOUND Confirmed by MARILY ROMAN MD ([id number]) on 03/01/2017 4:13:35 PM Referred By: Markos Cardona Confirmed By:MARILY ROMAN MD
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
[2017-03-01] MEDS ORDERED: GABAPENTIN 100 MG CAPSULE (FP) PO SCH (22:00)
[2017-03-01] MEDS: diphenhydrAMINE HCL 50 MG CAPSULE PO PRN (22:12)
[2017-03-01] MEDS: THIAMINE HCL 100 MG TABLET (FP) PO SCH (22:13)
[2017-03-01] MEDS: QUEtiapine FUMARATE 200 MG TABLET PO SCH (22:13)
[2017-03-02] MEDS: chlordiazePOXIDE HCL 25 MG CAPSULE PO SCH ×3 (08:15→17:32)
[2017-03-02] MEDS: GABAPENTIN 100 MG CAPSULE (FP) PO SCH ×3 (08:16→22:10)
[2017-03-02 09:20] LABS: BASOPHIL 0.2 % (0-2.0); MCH 31.4 pg (25.7-33.7); MCHC 33.5 g/dl (32.0-35.9); MEAN CELL VOLUME 93.9 fl (80-96); MEAN PLT VOLUME 8.8 fl (7.5-11.1); NEUTROPHILS 54.3 % (42.8-82.8); PLATELET COUNT 178 K/MM3 (134-434); RDW 16.2 % (11.9-15.9); WHITE BLOOD COUNT 5.5 K/mm3 (4.0-10.0)
[2017-03-02] MEDS: METHADONE HCL 5 MG TABLET (FOR DETOX USE ONLY) PO SCH (10:15)
[2017-03-02] MEDS: HYDROCORTISONE 0.5% TOPICAL OINTMENT TUBE TP PRN (10:15)
[2017-03-02] MEDS: PRENATAL VITAMINS W/ FOLIC ACID TABLET (FP) PO SCH (10:15)
[2017-03-02] MEDS: NICOTINE 14 MG/24 HOURS TOPICAL PATCH TD SCH (10:17)
[2017-03-02] MEDS: ACETAMINOPHEN 325 MG TABLET (FP) PO PRN (14:55)
--- NOTE | 2017-03-02 15:45 | PN ---
S CIWA - CIWA Score Nausea/Vomitin-No Nausea/No Vomiting Muscle Tremors: 4-Moderate,w/Arms Extend Anxiety: 4-Mod. Anxious/Guarded Agitation: 4-Moderately Restless Paroxysmal Sweats: No Perspiration Orientation: 0-Oriented Tacttile Disturbances: 1-Very Mild Itch/Numbness Auditory Disturbances: 0-None Visual Disturbances: 0-None Headache: 0-None Present CIWA-Ar Total Score: 13 BHS COWS - Scale Resting Pulse: 1= [place] 81-100 Sweatin= Chills/Flushing Restless Observation: 3= Extraneous Movement Pupil Size: 0= Normal to Room Light Bone or Joint Aches: 2= Severe Diffuse Aches Runny Nose/ Eye Tearin= Nasal Congestion GI Upset > 30mins: 2= Nausea/Diarrhea Tremor Observation of Outstretched Hands: 2= Slight Tremor Visible Yawning Observation: 0= None Anxiety or Irritability: 2=Irritable/Anxious Goose Flesh Skin: 0=Smooth Skin COWS Score: 14 BHS Progress Note (SOAP) Subjective: Anxious, restless, nausea, interrupted sleep; c/o cane too short and that he forgot his cane either at home or in his friend's car and that his friend doesn' t have a phone for him to call. Patient requesting a longer cane. He reports falling last night and hitting his forehead and that the RN last night picked him up from the floor. When confronted by RN and other staff in front of copy writer , he changed his story stating that he was sitting at edge of bed and fell on his buttock and denied hitting his forehead/head. He denies any pain, dizziness or headache. Patient insisted on having a taller cane for ambulation. Objective: 03/02/17 15:45 Last Vital Signs Temp Pulse Resp BP Pulse Ox 98.1 F 93 H 18 143/68 03/02/17 14:09 03/02/17 14:09 03/02/17 14:09 03/02/17 14:09 PE: Face: no visible trauma/injury, no swelling noted, dry area to upper nasal bridge Extrem: FROM Gait: steady Laboratory Test 02/28/17 03/01/17 03/01/17 21:58 08:00 08:00 WBC 6.8 RBC 3.26 L Hgb 10.3 L Hct 31.0 L MCV 94.9 MCHC 33.2 RDW 16.0 H Plt Count 187 MPV 8.7 Neutrophils % Lymphocytes % Monocytes % Eosinophils % Basophils % Sodium 135 L Potassium 4.2 Chloride 101 Carbon Dioxide 24 Anion Gap 10 BUN 10 Creatinine 0.9 D Creat Clearance w eGFR > 60 Random Glucose 84 Calcium 8.5 Total Bilirubin 0.4 D AST 16 D ALT 18 D Alkaline Phosphatase 69 Total Protein 7.3 Albumin 3.4 Urine Color Ltyellow Urine Appearance Clear Urine pH 6.0 Ur Specific [place] 1.008 Urine Protein Negative Urine Glucose (UA) Negative Urine Ketones Negative Urine Blood Negative Urine Nitrite Negative Urine Bilirubin Negative Urine Urobilinogen Negative Ur Leukocyte Esterase Negative RPR Titer 03/01/17 03/02/17 08:00 07:30 WBC 5.5 RBC 3.22 L Hgb 10.1 L Hct 30.3 L MCV 93.9 MCHC 33.5 RDW 16.2 H Plt Count 178 MPV 8.8 Neutrophils % 54.3 D Lymphocytes % 28.3 D Monocytes % 10.2 Eosinophils % 7.0 H Basophils % 0.2 Sodium Potassium Chloride Carbon Dioxide Anion Gap BUN Creatinine Creat Clearance w eGFR Random Glucose Calcium Total Bilirubin AST ALT Alkaline Phosphatase Total Protein Albumin Urine Color Urine Appearance Urine pH Ur Specific [place] Urine Protein Urine Glucose (UA) Urine Ketones Urine Blood Urine Nitrite Urine Bilirubin Urine Urobilinogen Ur Leukocyte Esterase RPR Titer Nonreactive Labs noted Assessment: 03/02/17 15:47 Withdrawal symptoms Plan: Continue detox Fall protocol #2 implemented
[2017-03-02] MEDS: THIAMINE HCL 100 MG TABLET (FP) PO SCH (22:10)
[2017-03-02] MEDS: QUEtiapine FUMARATE 200 MG TABLET PO SCH (22:10)
[2017-03-02] MEDS: chlordiazePOXIDE 5 MG CAPSULE PO SCH (22:10)
[2017-03-03] MEDS: ACETAMINOPHEN 325 MG TABLET (FP) PO PRN ×2 (00:41→14:17)
[2017-03-03] MEDS: diphenhydrAMINE HCL 50 MG CAPSULE PO PRN (00:42)
[2017-03-03] MEDS: GABAPENTIN 100 MG CAPSULE (FP) PO SCH ×3 (05:22→22:06)
[2017-03-03] MEDS: chlordiazePOXIDE 5 MG CAPSULE PO SCH ×3 (05:22→17:22)
--- NOTE | 2017-03-03 10:12 | PN ---
BHS Progress Note (SOAP) Subjective: interrupted sleep, sweats, lbp Objective: 03/03/17 10:10 Vital Signs Temperature 97.7 F 03/03/17 09:48 Pulse Rate 97 H 03/03/17 09:48 Respiratory Rate 16 03/03/17 09:48 Blood Pressure 123/59 03/03/17 09:48 O2 Sat by Pulse Oximetry (%) Laboratory Tests 02/28/17 03/01/17 03/01/17 21:58 08:00 08:00 WBC 6.8 RBC 3.26 L Hgb 10.3 L Hct 31.0 L MCV 94.9 MCHC 33.2 RDW 16.0 H Plt Count 187 MPV 8.7 Neutrophils % Lymphocytes % Monocytes % Eosinophils % Basophils % Sodium 135 L Potassium 4.2 Chloride 101 Carbon Dioxide 24 Anion Gap 10 BUN 10 Creatinine 0.9 D Creat Clearance w eGFR > 60 Random Glucose 84 Calcium 8.5 Total Bilirubin 0.4 D AST 16 D ALT 18 D Alkaline Phosphatase 69 Total Protein 7.3 Albumin 3.4 Urine Color Ltyellow Urine Appearance Clear Urine pH 6.0 Ur Specific [place] 1.008 Urine Protein Negative Urine Glucose (UA) Negative Urine Ketones Negative Urine Blood Negative Urine Nitrite Negative Urine Bilirubin Negative Urine Urobilinogen Negative Ur Leukocyte Esterase Negative RPR Titer 03/01/17 03/02/17 08:00 07:30 WBC 5.5 RBC 3.22 L Hgb 10.1 L Hct 30.3 L MCV 93.9 MCHC 33.5 RDW 16.2 H Plt Count 178 MPV 8.8 Neutrophils % 54.3 D Lymphocytes % 28.3 D Monocytes % 10.2 Eosinophils % 7.0 H Basophils % 0.2 Sodium Potassium Chloride Carbon Dioxide Anion Gap BUN Creatinine Creat Clearance w eGFR Random Glucose Calcium Total Bilirubin AST ALT Alkaline Phosphatase Total Protein Albumin Urine Color Urine Appearance Urine pH Ur Specific [place] Urine Protein Urine Glucose (UA) Urine Ketones Urine Blood Urine Nitrite Urine Bilirubin Urine Urobilinogen Ur Leukocyte Esterase RPR Titer Nonreactive pt aox3 ambulating in nad Assessment: 03/03/17 10:10 withdreawal sx;s lbp anemia Plan: cont detox increase fluids lidocaine patch
[2017-03-03] MEDS: HYDROCORTISONE 0.5% TOPICAL OINTMENT TUBE TP PRN (10:34)
[2017-03-03] MEDS: METHADONE HCL 5 MG TABLET (FOR DETOX USE ONLY) PO SCH (10:35)
[2017-03-03] MEDS: NICOTINE 14 MG/24 HOURS TOPICAL PATCH TD SCH (10:35)
[2017-03-03] MEDS: PRENATAL VITAMINS W/ FOLIC ACID TABLET (FP) PO SCH (10:35)
[2017-03-03] MEDS: ALBUTEROL SO4 6.7 GM HFA INHALER IH PRN (10:39)
[2017-03-03] MEDS ORDERED: LIDOCAINE 5% TOPICAL PATCH TP ONE (11:15)
[2017-03-03] MEDS: THIAMINE HCL 100 MG TABLET (FP) PO SCH (22:06)
[2017-03-03] MEDS: chlordiazePOXIDE HCL 10 MG CAPSULE PO SCH (22:07)
[2017-03-03] MEDS: QUEtiapine FUMARATE 200 MG TABLET PO SCH (22:07)
[2017-03-04] MEDS: GABAPENTIN 100 MG CAPSULE (FP) PO SCH ×3 (06:04→22:37)
[2017-03-04] MEDS: chlordiazePOXIDE HCL 10 MG CAPSULE PO SCH ×3 (06:04→18:04)
[2017-03-04] MEDS: ACETAMINOPHEN 325 MG TABLET (FP) PO PRN ×2 (06:06→18:05)
--- NOTE | 2017-03-04 09:10 | PN ---
BHS Progress Note (SOAP) Subjective: interrupted sleep, sweats - soaked Objective: 03/04/17 09:08 Vital Signs Temperature 98.4 F 03/04/17 06:00 Pulse Rate 73 03/04/17 06:00 Respiratory Rate 18 03/04/17 06:00 Blood Pressure 133/66 03/04/17 06:00 O2 Sat by Pulse Oximetry (%) Laboratory Tests 02/28/17 03/01/17 03/01/17 21:58 08:00 08:00 WBC 6.8 RBC 3.26 L Hgb 10.3 L Hct 31.0 L MCV 94.9 MCHC 33.2 RDW 16.0 H Plt Count 187 MPV 8.7 Neutrophils % Lymphocytes % Monocytes % Eosinophils % Basophils % Sodium 135 L Potassium 4.2 Chloride 101 Carbon Dioxide 24 Anion Gap 10 BUN 10 Creatinine 0.9 D Creat Clearance w eGFR > 60 Random Glucose 84 Calcium 8.5 Total Bilirubin 0.4 D AST 16 D ALT 18 D Alkaline Phosphatase 69 Total Protein 7.3 Albumin 3.4 Urine Color Ltyellow Urine Appearance Clear Urine pH 6.0 Ur Specific [place] 1.008 Urine Protein Negative Urine Glucose (UA) Negative Urine Ketones Negative Urine Blood Negative Urine Nitrite Negative Urine Bilirubin Negative Urine Urobilinogen Negative Ur Leukocyte Esterase Negative RPR Titer 03/01/17 03/02/17 08:00 07:30 WBC 5.5 RBC 3.22 L Hgb 10.1 L Hct 30.3 L MCV 93.9 MCHC 33.5 RDW 16.2 H Plt Count 178 MPV 8.8 Neutrophils % 54.3 D Lymphocytes % 28.3 D Monocytes % 10.2 Eosinophils % 7.0 H Basophils % 0.2 Sodium Potassium Chloride Carbon Dioxide Anion Gap BUN Creatinine Creat Clearance w eGFR Random Glucose Calcium Total Bilirubin AST ALT Alkaline Phosphatase Total Protein Albumin Urine Color Urine Appearance Urine pH Ur Specific [place] Urine Protein Urine Glucose (UA) Urine Ketones Urine Blood Urine Nitrite Urine Bilirubin Urine Urobilinogen Ur Leukocyte Esterase RPR Titer Nonreactive pt aox3 in nad ambulating Assessment: 03/04/17 09:09 withdrawal sx's insomnia Plan: cont. detox increase fluids ambien 5mg hs d/c in am
[2017-03-04] MEDS ORDERED: METHADONE HCL 10 MG TABLET (FOR DETOX USE ONLY) PO SCH (10:00)
[2017-03-04] MEDS ORDERED: LIDOCAINE 5% TOPICAL PATCH TP SCH (10:00)
[2017-03-04] MEDS: NICOTINE 14 MG/24 HOURS TOPICAL PATCH TD SCH (10:19)
[2017-03-04] MEDS: HYDROCORTISONE 0.5% TOPICAL OINTMENT TUBE TP PRN (10:19)
[2017-03-04] MEDS: PRENATAL VITAMINS W/ FOLIC ACID TABLET (FP) PO SCH (10:19)
[2017-03-04] MEDS: ALBUTEROL SO4 6.7 GM HFA INHALER IH PRN (10:22)
[2017-03-04] MEDS ORDERED: ZOLPIDEM TARTRATE 5 MG TABLET PO ONE (22:03)
[2017-03-04] MEDS: QUEtiapine FUMARATE 200 MG TABLET PO SCH (22:37)
[2017-03-04] MEDS: THIAMINE HCL 100 MG TABLET (FP) PO SCH (22:37)
[2017-03-05] MEDS: GABAPENTIN 100 MG CAPSULE (FP) PO SCH (05:44)
[2017-03-05] MEDS ORDERED: METHADONE HCL 5 MG TABLET (FOR DETOX USE ONLY) PO SCH (06:00)
--- NOTE | 2017-03-05 08:40 | DS ---
[facility] Detox Discharge Summary Admission Date: 02/28/17 Discharge Date: 03/05/17 - History Present History: Alcohol Dependence, Opioid Dependence - Physical Exam Results Vital Signs: Vital Signs Temperature 97.9 F 03/05/17 06:36 Pulse Rate 74 03/05/17 06:36 Respiratory Rate 18 03/05/17 06:36 Blood Pressure 100/64 03/05/17 06:36 O2 Sat by Pulse Oximetry (%) - Treatment Hospital Course: Detox Protocol Followed, Detoxed Safely, Responded well, Discharged Condition Good - Medication Discharge Medications: Ambulatory Orders Bupropion HCl [Wellbutrin Xl -] 150 mg PO DAILY #30 tab.sr.24h 09/25/16 Quetiapine Fumarate [Seroquel -] 400 mg PO HS 11/23/16 Gabapentin [Neurontin -] 100 mg PO TID #60 capsule 11/25/16 Albuterol Sulfate Inhaler - [Ventolin HFA Inhaler -] 2 puff IH Q4H PRN #1 inhaler 11/28/16 Ferrous Sulfate [Feosol] 325 mg PO TIDCM #90 ud 11/28/16 Ibuprofen [Motrin -] 400 mg PO Q6H PRN #20 tablet 11/28/16 Pantoprazole Sodium [Protonix] 40 mg PO DAILY #30 tablet.dr 11/28/16 Quetiapine Fumarate [Seroquel -] 300 mg PO DAILY 01/04/17 Bupropion HCl [Wellbutrin Xl -] 150 mg PO DAILY #30 tab.sr.24h 01/06/17 Quetiapine Fumarate [Seroquel -] 300 mg PO DAILY #30 tab 01/06/17 Quetiapine Fumarate [Seroquel -] 400 mg PO HS #30 tab 01/06/17 Quetiapine Fumarate [Seroquel -] 200 mg PO HS #30 tab 01/09/17 Bupropion HCl [Wellbutrin Xl -] 150 mg PO DAILY #30 tab.sr.24h 03/01/17 Gabapentin [Neurontin -] 100 mg PO TID #60 capsule 03/01/17 Quetiapine Fumarate [Seroquel] 300 mg PO HS #30 tablet 03/01/17 - Diagnosis (1) Alcohol dependence with uncomplicated withdrawal Current Visit: Yes Status: Chronic (2) COPD (chronic obstructive pulmonary disease) Current Visit: Yes Status: Acute Qualifiers: COPD type: chronic bronchitis Chronic bronchitis type: simple Qualified Code(s): J41.0 - Simple chronic bronchitis (3) Insomnia Current Visit: Yes Status: Chronic (4) Nicotine dependence Current Visit: Yes Status: Chronic Qualifiers: Nicotine product type: cigarettes Substance use status: uncomplicated Qualified Code(s): F17.210 - Nicotine dependence, cigarettes, uncomplicated (5) Opioid dependence with withdrawal Current Visit: Yes Status: Chronic (6) Bipolar disorder Current Visit: Yes Status: Chronic Qualifiers: Active/Remission status: remission status unspecified Qualified Code (s): F31.9 - Bipolar disorder, unspecified (7) Chronic low back pain Current Visit: Yes Status: Chronic Qualifiers: Back pain laterality: unspecified Sciatica presence: without sciatica Qualified Code(s): M54.5 - Low back pain; G89.29 - Other chronic pain (8) Essential hypertension Current Visit: Yes Status: Chronic (9) GERD (gastroesophageal reflux disease) Current Visit: Yes Status: Chronic Qualifiers: Esophagitis presence: without esophagitis Qualified Code(s): K21.9 - Gastro-esophageal reflux disease without esophagitis (10) Hepatitis C carrier Current Visit: Yes Status: Chronic - AMA Did Patient Leave Against Medical Advice: No
[2017-03-05 10:08] VITALS: BP 146/70; PULSE 104; TEMP 97.5
== END 2017-03-05 09:33 | disposition home or self-care (01) | DRG 773 ==
LOC: YASAS 13:44 → Y6N 21:03
PROVIDERS: ADMIT Internal Medicine; ATTEND Internal Medicine
PROC: HZ2ZZZZ Detoxification Services for Substance Abuse Treatment (ICD-10-PCS; principal; 2017-03-05)
DX: F11.23 Opioid dependence with withdrawal (principal); F10.230 Alcohol dependence with withdrawal, uncomplicated; F17.210 Nicotine dependence, cigarettes, uncomplicated; F31.9 Bipolar disorder, unspecified; G47.00 Insomnia, unspecified; I10 Essential (primary) hypertension; J41.0 Simple chronic bronchitis; K21.9 Gastro-esophageal reflux disease without esophagitis; M54.5 Low back pain; B18.2 Chronic viral hepatitis C; B15.9 Hepatitis A without hepatic coma; B18.1 Chronic viral hepatitis B without delta-agent; D50.8 Other iron deficiency anemias
CPT/HCPCS: 36415; 80053; 81003; 85025; 85027; 86593; 93005; 93010

== ENCOUNTER 2017-10-07 13:43 | Inpatient (IN) | payer OTHER, MEDICARE ==
[2017-10-07 14:10] VITALS: BMI 20.5
--- NOTE | 2017-10-07 19:00 | HP ---
COWS - Scale Resting Pulse: 0= [place] 80 or Below Sweatin= Chills/Flushing Restless Observation: 3= Extraneous Movement Pupil Size: 1= Pupils >than Normal Bone or Joint Aches: 2= Severe Diffuse Aches Runny Nose/ Eye Tearin= Runny Nose/Eyes GI Upset > 30mins: 2= Nausea/Diarrhea Tremor Observation: 1= Tremor [place], Not Seen Yawning Observation: 1= 1-2x During Session Anxiety or Irritability: 2=Irritable/Anxious Goose Flesh Skin: 3=Piloerection COWS Score: 18 CIWA Score - CIWA Score Nausea/Vomitin Muscle Tremors: 3 Anxiety: 2 Agitation: 1-Slight > Activity Paroxysmal Sweats: 2 Orientation: 0-Oriented Tacttile Disturbances: 1-Very Mild Itch/Numbness Auditory Disturbances: 1-Very Mild Visual Disturbances: 1-Very Mild Sensitivity Headache: 0-None Present CIWA-Ar Total Score: 13 Admission ROS BHS - HPI Chief Complaint: WITHDRAWAL SYMPTOMS Allergies/Adverse Reactions: Allergies Allergy/AdvReac Type Severity Reaction Status Date / Time No Known Allergies Allergy Verified 10/07/17 17:48 History of Present Illness: 67 Y.O. MAN WITH A HISTORY OF OPIOID AND ALCOHOL DEPENDENCE IS HERE SEEKING DETOX. HE HAS HAD MULTIPLE ADMISSIONS HERE FOR DETOX WITH HIS LAST ADMISSION BEING 02/2017. HE DOES NOT HAVE A SIGNIFICANT PERIOD CLEAN. Exam Limitations: Intoxication - Ebola screening Have you traveled outside of the country in the last 21 days: No Have you had contact with anyone from an Ebola affected area: No Have you been sick,other than usual withdrawal symptoms: No Do you have a fever: No - Review of Systems Constitutional: Chills, Diaphoresis, Loss of Appetite, Unintentional Wgt. Loss EENT: reports: Blurred Vision, Double Vision, Tearing, Nose Congestion Respiratory: reports: Cough, Wheezing Cardiac: reports: Palpitations GI: reports: Diarrhea, Vomiting : reports: No Symptoms Reported Musculoskeletal: reports: Back Pain Integumentary: reports: No Symptoms Reported Neuro: reports: Tingling, Tremors Endocrine: reports: No Symptoms Reported Hematology: reports: Anemia Psychiatric: reports: Orientated x3, other (BIPOLAR) Other Systems: Reviewed and Negative (BIPOLAR) Patient History - Patient Medical History Hx Anemia: No Hx Asthma: Yes Hx Chronic Obstructive Pulmonary Disease (COPD): No Hx Cancer: No Hx Cardiac Disorders: No Hx Congestive Heart Failure: No Hx Hypertension: Yes (not on meds.) Hx Hypercholesterolemia: No Hx Pacemaker: No HX Cerebrovascular Accident: No Hx Seizures: No Hx Dementia: No Hx Diabetes: No Hx Gastrointestinal Disorders: No Hx Liver Disease: Yes (hepatitis a,b,c) Hx Genitourinary Disorders: No Hx Sexually Transmitted Disorders: No Hx Renal Disease (ESRD): No Hx Thyroid Disease: No Hx Human Immunodeficiency Virus (HIV): No Hx Hepatitis C: Yes (incomplete treatment) Hx Depression: Yes Hx Suicide Attempt: Yes (Pt states he tried to overdose in 2011) Hx Bipolar Disorder: Yes (seroquel wellbutrin) Hx Schizophrenia: No - Patient Surgical History Past Surgical History: Yes Hx Neurologic Surgery: No Hx Cataract Extraction: No Hx Cardiac Surgery: No Hx Lung Surgery: No Hx Breast Surgery: No Hx Breast Biopsy: No Hx Abdominal Surgery: No Hx Appendectomy: No Hx Cholecystectomy: No Hx Genitourinary Surgery: No Hx Section: No Hx Orthopedic Surgery: Yes (left cheek bone and nasal surgery 1970) Other Surgical History: reconstructive sx, nose and left cheekbone in 1971 Anesthesia Reaction: No - PPD History Previous Implant?: Yes Documented Results: Negative w/o proof Implanted On Prior [facility] Admission?: Yes Date: 06/14/16 Results: 0mm PPD to be Administered?: Yes - Reproductive History Patient is a Female of Child Bearing Age (11 -55 yrs old): No - Smoking Cessation Smoking history: Current every day smoker Have you smoked in the past 12 months: Yes Aproximately how many cigarettes per day: 4 Cigars Per Day: 0 Hx Chewing Tobacco Use: No Initiated information on smoking cessation: Yes 'Breaking Loose' booklet given: 10/07/17 - Substance & Tx. History Hx Alcohol Use: Yes Hx Substance Use: Yes Substance Use Type: Alcohol, Heroin - Substances Abused Heroin Route: Inhalation Frequency: Daily Amount used: 3-4 bags Age of first use: 16 Date of Last Use: 10/07/17 Alcohol Route: Oral Frequency: Daily Amount used: 7 16 oz beers Age of first use: 27 Date of Last Use: 10/07/17 Family Disease History - Family Disease History Family Disease History: Respiratory: Father (), Other: Mother ( ALCOHOLIC Cirrhosis), Brother (ALCOHOL), Sister (ALCOHOL) Admission Physical Exam [facility] - Vital Signs Vital Signs: Vital Signs - 24 hr 10/07/17 14:01 Temperature 96.6 F L Pulse Rate 80 Respiratory 18 Rate Blood Pressure 150/75 - Physical General Appearance: Yes: Disheveled, Intoxicated, Sweating HEENTM: Yes: Hearing grossly Normal, Normocephalic, Normal Voice Respiratory: Yes: Chest Non-Tender, Lungs Clear, Normal Breath Sounds, No Respiratory Distress, No Accessory Muscle Use Neck: Yes: No masses,lesions,Nodules, Trachea in good position Breast: Yes: Breast Exam Deferred Cardiology: Yes: Regular Rhythm, Regular Rate Abdominal: Yes: Normal Bowel Sounds, Non Tender, Flat Genitourinary: Yes: Other (NO COMPLAINTS REPORTED) Back: Yes: Normal Inspection (UNSTEADY GAIT; AMBULATES WITH THE USE OF A CANE) Musculoskeletal: Yes: Other Extremities: Yes: Normal Capillary Refill, Normal Inspection, Normal Range of Motion, Non-Tender Neurological: Yes: parking cashier II-XII NML intact, Alert, Normal Mood/Affect, Normal Response Integumentary: Yes: Normal Color, Dry, Warm Lymphatic: Yes: Within Normal Limits - Diagnostic (1) Alcohol dependence with uncomplicated withdrawal Current Visit: Yes Status: Chronic (2) Arthritis, hip Current Visit: Yes Status: Chronic (3) Chronic low back pain Current Visit: Yes Status: Chronic Qualifiers: Back pain laterality: unspecified Sciatica presence: without sciatica Qualified Code(s): M54.5 - Low back pain Comment: . (4) GERD (gastroesophageal reflux disease) Current Visit: Yes Status: Chronic Qualifiers: Esophagitis presence: without esophagitis Qualified Code(s): K21.9 - Gastro -esophageal reflux disease without esophagitis (5) Nicotine dependence Current Visit: Yes Status: Chronic Qualifiers: Nicotine product type: cigarettes Substance use status: uncomplicated Qualified Code(s): F17.210 - Nicotine dependence, cigarettes, uncomplicated Comment: . (6) Use of cane as ambulatory aid Current Visit: Yes Status: Chronic (7) Weight loss Current Visit: Yes Status: Acute (8) Asthma Current Visit: Yes Status: Chronic Cleared for Admission [facility] - Detox or Rehab [facility] Level of Care: Medically Managed Detox Regimen/Protocol: Methadone/Librium [facility] Breath Alcohol Content Breath Alcohol Content: 0.122 Urine Drug Screen - Results Drug Screen Negative: No Urine Drug Screen Results: OPI-Opiates
[2017-10-07] MEDS ORDERED: MAG HYDROX/AL HYDROX/SIMETH 30 ML UNIT-DOSE CUP PO PRN (19:06)
[2017-10-07] MEDS ORDERED: hydrOXYzine PAMOATE 50 MG CAPSULE (FP) PO PRN (19:06)
[2017-10-07] MEDS ORDERED: LOPERAMIDE HCL 2 MG CAPSULE PO PRN (19:06)
[2017-10-07] MEDS ORDERED: IBUPROFEN 400 MG TABLET (FP) PO PRN (19:06)
[2017-10-07] MEDS ORDERED: chlordiazePOXIDE HCL 25 MG CAPSULE PO ONE (19:06)
[2017-10-07] MEDS ORDERED: chlordiazePOXIDE HCL 25 MG CAPSULE PO PRN (19:06)
[2017-10-07] MEDS ORDERED: METHADONE HCL 10 MG TABLET (FOR DETOX USE ONLY) PO ONE ×2 (19:06→23:00)
[2017-10-07] MEDS ORDERED: guaiFENesin/D-METHORPHAN HB 10 ML UNIT-DOSE CUPS PO PRN (19:06)
[2017-10-07] MEDS ORDERED: P-EPHED 60MG/TRIPROLIDI 2.5MG TABLET PO PRN (19:06)
[2017-10-07] MEDS ORDERED: MENTHOL/PHENOL 1 EACH UD MM PRN (19:06)
[2017-10-07] MEDS ORDERED: MAGNESIUM HYDROX 2400MG/30ML ORAL SUSPENSION 30 ML CUP PO PRN (19:06)
[2017-10-07] MEDS ORDERED: MAGNESIUM CITRATE 300 ML BOTTLE PO PRN (19:06)
[2017-10-07] MEDS ORDERED: diphenhydrAMINE HCL 25 MG CAPSULE (FP) PO ONE ×2 (19:09→22:00)
[2017-10-07] MEDS: ACETAMINOPHEN 325 MG TABLET (FP) PO PRN (19:53)
[2017-10-07] MEDS: chlordiazePOXIDE HCL 25 MG CAPSULE PO SCH (22:14)
[2017-10-07] MEDS: THIAMINE HCL 100 MG TABLET (FP) PO SCH (22:14)
[2017-10-07] MEDS: GABAPENTIN 100 MG CAPSULE (FP) PO SCH (22:15)
[2017-10-07 22:47] LABS: URINE APPEARANCE CLEAR; URINE BILIRUBIN NEGATIVE (NEGATIVE); URINE BLOOD NEGATIVE (NEGATIVE); URINE COLOR LTYELLOW; URINE GLUCOSE (UA) NEGATIVE (NEGATIVE); URINE KETONE NEGATIVE (NEGATIVE); URINE NITRITE NEGATIVE (NEGATIVE); URINE PROTEIN NEGATIVE (NEGATIVE); URINE UROBILINOGEN NEGATIVE mg/dL (0.2-1.0)
[2017-10-08] MEDS: chlordiazePOXIDE HCL 25 MG CAPSULE PO SCH ×4 (05:24→22:16)
[2017-10-08] MEDS: GABAPENTIN 100 MG CAPSULE (FP) PO SCH ×3 (05:25→22:16)
[2017-10-08] MEDS ORDERED: METHADONE HCL 10 MG TABLET (FOR DETOX USE ONLY) PO SCH (10:00)
[2017-10-08 10:09] LABS: MCHC 33.2 g/dl (32.0-35.9); MEAN CELL VOLUME 87.5 fl (80-96); MEAN PLT VOLUME 8.5 fl (7.5-11.1); PLATELET COUNT 269 K/MM3 (134-434); RDW 17.2 % (11.9-15.9); WHITE BLOOD COUNT 5.7 K/mm3 (4.0-10.0)
[2017-10-08] MEDS: NICOTINE 14 MG/24 HOURS TOPICAL PATCH TD SCH (10:18)
[2017-10-08] MEDS: PANTOPRAZOLE 40 MG TABLET (FP) PO SCH (10:18)
[2017-10-08] MEDS: PRENATAL VITAMINS W/ FOLIC ACID TABLET (FP) PO SCH (10:18)
[2017-10-08 10:35] LABS: ALBUMIN 3.2 g/dl (3.4-5.0); ALK PHOS 59 U/L (45-117); ANION GAP 11 (8-16); BILIRUBIN,TOTAL 0.6 mg/dL (0.2-1.0); CALCIUM 8.5 mg/dL (8.5-10.1); CO2 25 mmol/L (21-32); CREATININE 0.7 mg/dL (0.7-1.3); GLUCOSE,RANDOM 104 mg/dL (74-106); SGOT/AST 38 U/L (15-37); SGPT/ALT 24 U/L (12-78)
[2017-10-08 10:51] LABS: URINE LEUK ESTERASE Negative (NEGATIVE)
--- NOTE | 2017-10-08 10:55 | PN ---
[facility] CIWA - CIWA Score Nausea/Vomitin (N/V) Muscle Tremors: 3 Anxiety: 4-Mod. Anxious/Guarded Agitation: 4-Moderately Restless Paroxysmal Sweats: 1-Minimal Palms Moist Orientation: 0-Oriented Tacttile Disturbances: 3-Moderate Itch/Numb/Burn Auditory Disturbances: 0-None Visual Disturbances: 0-None Headache: 0-None Present CIWA-Ar Total Score: 18 BHS COWS - Scale Resting Pulse: 1= [place] 81-100 Sweatin= Chills/Flushing Restless Observation: 3= Extraneous Movement Pupil Size: 0= Normal to Room Light Bone or Joint Aches: 4=Acute Joint/Muscle Pain Runny Nose/ Eye Tearin= Nasal Congestion GI Upset > 30mins: 3= Vomiting/Diarrhea (N/V) Tremor Observation of Outstretched Hands: 1= Tremor [place], Not Seen Yawning Observation: 1= 1-2x During Session Anxiety or Irritability: 1=Feels Anxious/Irritable Goose Flesh Skin: 0=Smooth Skin COWS Score: 16 [facility] Progress Note (SOAP) Subjective: ANXIETY,SWEATS,N/V,TREMORS. Objective: 10/08/17 10:54 Vital Signs Temperature 99.1 F 10/08/17 09:19 Pulse Rate 93 H 10/08/17 09:19 Respiratory Rate 18 10/08/17 09:19 Blood Pressure 146/72 10/08/17 09:19 O2 Sat by Pulse Oximetry (%) Laboratory Last Values WBC 5.7 K/mm3 (4.0-10.0) 10/08/17 07:00 RBC 3.58 M/mm3 (4.00-5.60) L 10/08/17 07:00 Hgb 10.4 GM/dL (11.7-16.9) L 10/08/17 07:00 Hct 31.4 % (35.4-49) L 10/08/17 07:00 MCV 87.5 fl (80-96) 10/08/17 07:00 MCH 29.0 pg (25.7-33.7) 10/08/17 07:00 MCHC 33.2 g/dl (32.0-35.9) 10/08/17 07:00 RDW 17.2 % (11.9-15.9) H 10/08/17 07:00 Plt Count 269 K/MM3 (134-434) D 10/08/17 07:00 MPV 8.5 fl (7.5-11.1) 10/08/17 07:00 Sodium 133 mmol/L (136-145) L 10/08/17 07:00 Potassium 4.3 mmol/L (3.5-5.1) 10/08/17 07:00 Chloride 97 mmol/L (98-107) L 10/08/17 07:00 Carbon Dioxide 25 mmol/L (21-32) 10/08/17 07:00 Anion Gap 11 (8-16) 10/08/17 07:00 BUN 9 mg/dL (7-18) 10/08/17 07:00 Creatinine 0.7 mg/dL (0.7-1.3) D 10/08/17 07:00 Creat Clearance w eGFR > 60 (>60) 10/08/17 07:00 Random Glucose 104 mg/dL (74-106) D 10/08/17 07:00 Calcium 8.5 mg/dL (8.5-10.1) 10/08/17 07:00 Total Bilirubin 0.6 mg/dL (0.2-1.0) D 10/08/17 07:00 AST 38 U/L (15-37) H D 10/08/17 07:00 ALT 24 U/L (12-78) D 10/08/17 07:00 Alkaline Phosphatase 59 U/L (45-117) 10/08/17 07:00 Total Protein 7.0 g/dl (6.4-8.2) 10/08/17 07:00 Albumin 3.2 g/dl (3.4-5.0) L 10/08/17 07:00 Urine Color Ltyellow 10/07/17 21:30 Urine Appearance Clear 10/07/17 21:30 Urine pH 6.0 (5.0-8.0) 10/07/17 21:30 Ur Specific [place] 1.005 (1.001-1.035) 10/07/17 21:30 Urine Protein Negative (NEGATIVE) 10/07/17 21:30 Urine Glucose (UA) Negative (NEGATIVE) 10/07/17 21:30 Urine Ketones Negative (NEGATIVE) 10/07/17 21:30 Urine Blood Negative (NEGATIVE) 10/07/17 21:30 Urine Nitrite Negative (NEGATIVE) 10/07/17 21:30 Urine Bilirubin Negative (NEGATIVE) 10/07/17 21:30 Urine Urobilinogen Negative mg/dL (0.2-1.0) 10/07/17 21:30 Ur Leukocyte Esterase Negative (NEGATIVE) 10/07/17 21:30 Assessment: 10/08/17 10:54 WITHDRAWAL SX Plan: CONTINUE DETOX
[2017-10-08 11:04] LABS: HIV 1 & 2 AB NEGATIVE; HIV 1 AGp24 NEGATIVE
--- NOTE | 2017-10-08 11:39 | EKG ---
Test Reason : Blood Pressure : / mmHG Vent. Rate : 070 BPM Atrial Rate : 070 BPM P-R Int : 182 ms QRS Dur : 086 ms QT Int : 380 ms P-R-T Axes : 018 068 061 degrees QTc Int : 410 ms NORMAL SINUS RHYTHM SEPTAL INFARCT (CITED ON OR BEFORE 28-FEB-2017) ABNORMAL ECG WHEN COMPARED WITH ECG OF 28-FEB-2017 21:45, QUESTIONABLE CHANGE IN INITIAL FORCES OF SEPTAL LEADS Confirmed by CORINNE GALAVIZ MD ([id number]) on 10/08/2017 11:38:39 AM Referred By: Confirmed By:CORINNE GALAVIZ MD
[2017-10-08] MEDS ORDERED: FLU VACCINE QUAD 60 MCG/0.5 ML (MDV 17-18) IM ONE (12:00)
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
[2017-10-08] MEDS: THIAMINE HCL 100 MG TABLET (FP) PO SCH (22:16)
[2017-10-08] MEDS: QUEtiapine FUMARATE 300 MG TABLET PO SCH (22:16)
[2017-10-09] MEDS: GABAPENTIN 100 MG CAPSULE (FP) PO SCH ×3 (05:14→22:19)
[2017-10-09] MEDS: chlordiazePOXIDE HCL 25 MG CAPSULE PO SCH ×3 (05:14→17:01)
[2017-10-09] MEDS: PRENATAL VITAMINS W/ FOLIC ACID TABLET (FP) PO SCH (10:15)
[2017-10-09] MEDS: PANTOPRAZOLE 40 MG TABLET (FP) PO SCH (10:15)
[2017-10-09] MEDS: METHADONE HCL 5 MG TABLET (FOR DETOX USE ONLY) PO SCH (10:15)
[2017-10-09] MEDS: QUEtiapine FUMARATE 100 MG TABLET (FP) PO SCH (10:15)
[2017-10-09] MEDS: NICOTINE 14 MG/24 HOURS TOPICAL PATCH TD SCH (10:16)
[2017-10-09] MEDS ORDERED: ONDANSETRON *ODT* 4 MG TABLET SL PRN (11:17)
--- NOTE | 2017-10-09 14:31 | PN ---
[facility] CIWA - CIWA Score Nausea/Vomitin Muscle Tremors: 3 Anxiety: 3 Agitation: 1-Slight > Activity Paroxysmal Sweats: 3 Orientation: 0-Oriented Tacttile Disturbances: 0-None Auditory Disturbances: 1-Very Mild Visual Disturbances: 2-Mild Sensitivity Headache: 0-None Present CIWA-Ar Total Score: 16 BHS COWS - Scale Resting Pulse: 1= [place] 81-100 Sweatin= Chills/Flushing Restless Observation: 1= Difficult to Sit Still Pupil Size: 0= Normal to Room Light Bone or Joint Aches: 2= Severe Diffuse Aches Runny Nose/ Eye Tearin= None GI Upset > 30mins: 1= Stomach Cramp Tremor Observation of Outstretched Hands: 2= Slight Tremor Visible Yawning Observation: 1= 1-2x During Session Anxiety or Irritability: 2=Irritable/Anxious Goose Flesh Skin: 3=Piloerection COWS Score: 14 S Progress Note (SOAP) Subjective: Tremors, Stomach Cramping, Body Aches, Nausea, Interrupted Sleep, Sweating. Objective: PT. A & O X 3, OBSERVED AMBULATING ON UNIT WITH ASSISTANCE OF A CANE. NO ACUTE DISTRESS. 10/09/17 14:33 Vital Signs Temperature 98.5 F 10/09/17 13:20 Pulse Rate 83 10/09/17 13:20 Respiratory Rate 18 10/09/17 13:20 Blood Pressure 100/56 10/09/17 13:20 O2 Sat by Pulse Oximetry (%) Laboratory Tests 10/07/17 10/08/17 10/08/17 21:30 07:00 07:00 WBC 5.7 RBC 3.58 L Hgb 10.4 L Hct 31.4 L MCV 87.5 MCH 29.0 MCHC 33.2 RDW 17.2 H Plt Count 269 D MPV 8.5 Sodium 133 L Potassium 4.3 Chloride 97 L Carbon Dioxide 25 Anion Gap 11 BUN 9 Creatinine 0.7 D Creat Clearance w eGFR > 60 Random Glucose 104 D Calcium 8.5 Total Bilirubin 0.6 D AST 38 H D ALT 24 D Alkaline Phosphatase 59 Total Protein 7.0 Albumin 3.2 L Urine Color Ltyellow Urine Appearance Clear Urine pH 6.0 Ur Specific [place] 1.005 Urine Protein Negative Urine Glucose (UA) Negative Urine Ketones Negative Urine Blood Negative Urine Nitrite Negative Urine Bilirubin Negative Urine Urobilinogen Negative Ur Leukocyte Esterase Negative RPR Titer HIV 1&2 Antibody Screen HIV P24 Antigen 10/08/17 10/08/17 07:00 07:00 WBC RBC Hgb Hct MCV MCH MCHC RDW Plt Count MPV Sodium Potassium Chloride Carbon Dioxide Anion Gap BUN Creatinine Creat Clearance w eGFR Random Glucose Calcium Total Bilirubin AST ALT Alkaline Phosphatase Total Protein Albumin Urine Color Urine Appearance Urine pH Ur Specific [place] Urine Protein Urine Glucose (UA) Urine Ketones Urine Blood Urine Nitrite Urine Bilirubin Urine Urobilinogen Ur Leukocyte Esterase RPR Titer Nonreactive HIV 1&2 Antibody Screen Negative HIV P24 Antigen Negative LABS NOTED. Assessment: 10/09/17 14:33 WITHDRAWAL SYMPTOMS. Plan: CONTINUE DETOX. INCREASE DAILY PO FLUID INTAKE.
[2017-10-09] MEDS: THIAMINE HCL 100 MG TABLET (FP) PO SCH (22:19)
[2017-10-09] MEDS: QUEtiapine FUMARATE 300 MG TABLET PO SCH (22:19)
[2017-10-09] MEDS: chlordiazePOXIDE 5 MG CAPSULE PO SCH (22:19)
[2017-10-10] MEDS: chlordiazePOXIDE 5 MG CAPSULE PO SCH ×3 (07:04→17:15)
[2017-10-10] MEDS: GABAPENTIN 100 MG CAPSULE (FP) PO SCH ×3 (07:04→22:28)
[2017-10-10] MEDS: QUEtiapine FUMARATE 100 MG TABLET (FP) PO SCH (10:19)
[2017-10-10] MEDS: PANTOPRAZOLE 40 MG TABLET (FP) PO SCH (10:19)
[2017-10-10] MEDS: CYCLOBENZAPRINE HCL 10 MG TABLET (FP) PO PRN (10:19)
[2017-10-10] MEDS: PRENATAL VITAMINS W/ FOLIC ACID TABLET (FP) PO SCH (10:19)
[2017-10-10] MEDS: METHADONE HCL 5 MG TABLET (FOR DETOX USE ONLY) PO SCH (10:19)
[2017-10-10] MEDS: NICOTINE 14 MG/24 HOURS TOPICAL PATCH TD SCH (10:22)
--- NOTE | 2017-10-10 13:54 | PN ---
[facility] Progress Note (SOAP) Subjective: Nausea, Tremors, Body Aches, Stomach Cramping, Interrupted Sleep. Objective: PT. A & O X 2 (UNCERTAIN ABOUT DAY / DATE). PT. OBSERVED AMBULATING ON UNIT. NO ACUTE DISTRESS. 10/10/17 13:51 Vital Signs Temperature 95.2 F L 10/10/17 10:20 Pulse Rate 93 H 10/10/17 10:20 Respiratory Rate 18 10/10/17 10:20 Blood Pressure 119/84 10/10/17 10:20 O2 Sat by Pulse Oximetry (%) Laboratory Tests 10/07/17 10/08/17 10/08/17 21:30 07:00 07:00 WBC 5.7 RBC 3.58 L Hgb 10.4 L Hct 31.4 L MCV 87.5 MCH 29.0 MCHC 33.2 RDW 17.2 H Plt Count 269 D MPV 8.5 Sodium 133 L Potassium 4.3 Chloride 97 L Carbon Dioxide 25 Anion Gap 11 BUN 9 Creatinine 0.7 D Creat Clearance w eGFR > 60 Random Glucose 104 D Calcium 8.5 Total Bilirubin 0.6 D AST 38 H D ALT 24 D Alkaline Phosphatase 59 Total Protein 7.0 Albumin 3.2 L Urine Color Ltyellow Urine Appearance Clear Urine pH 6.0 Ur Specific [place] 1.005 Urine Protein Negative Urine Glucose (UA) Negative Urine Ketones Negative Urine Blood Negative Urine Nitrite Negative Urine Bilirubin Negative Urine Urobilinogen Negative Ur Leukocyte Esterase Negative RPR Titer HIV 1&2 Antibody Screen HIV P24 Antigen 10/08/17 10/08/17 07:00 07:00 WBC RBC Hgb Hct MCV MCH MCHC RDW Plt Count MPV Sodium Potassium Chloride Carbon Dioxide Anion Gap BUN Creatinine Creat Clearance w eGFR Random Glucose Calcium Total Bilirubin AST ALT Alkaline Phosphatase Total Protein Albumin Urine Color Urine Appearance Urine pH Ur Specific [place] Urine Protein Urine Glucose (UA) Urine Ketones Urine Blood Urine Nitrite Urine Bilirubin Urine Urobilinogen Ur Leukocyte Esterase RPR Titer Nonreactive HIV 1&2 Antibody Screen Negative HIV P24 Antigen Negative LABS NOTED. PATIENT HAS A HISTORY OF LOW RBC, HGB, AND HCT VALUES ON PREVIOUS ADMISSIONS. 10/10/17 13:57 Assessment: 10/10/17 13:52 WITHDRAWAL SYMPTOMS. Plan: CONTINUE DETOX. INCREASE DAILY PO FLUID INTAKE. FEOSOL, 325 MG PO DAILY.
[2017-10-10] MEDS: FERROUS SO4 325 MG TABLET (FP) PO SCH (14:59)
[2017-10-10] MEDS: THIAMINE HCL 100 MG TABLET (FP) PO SCH (22:28)
[2017-10-10] MEDS: QUEtiapine FUMARATE 300 MG TABLET PO SCH (22:28)
[2017-10-10] MEDS: chlordiazePOXIDE HCL 10 MG CAPSULE PO SCH (22:28)
[2017-10-11] MEDS: GABAPENTIN 100 MG CAPSULE (FP) PO SCH ×3 (05:54→22:13)
[2017-10-11] MEDS: chlordiazePOXIDE HCL 10 MG CAPSULE PO SCH ×3 (05:54→17:27)
[2017-10-11] MEDS: ACETAMINOPHEN 325 MG TABLET (FP) PO PRN (05:55)
[2017-10-11] MEDS ORDERED: ALBUTEROL SO4 18 GM HFA INHALER IH PRN (08:50)
[2017-10-11] MEDS ORDERED: SODIUM CHLORIDE NASAL SPRAY 44 ML BOTTLE NS PRN (08:51)
[2017-10-11] MEDS ORDERED: METHADONE HCL 10 MG TABLET (FOR DETOX USE ONLY) PO SCH (10:00)
[2017-10-11] MEDS: PRENATAL VITAMINS W/ FOLIC ACID TABLET (FP) PO SCH (10:10)
[2017-10-11] MEDS: QUEtiapine FUMARATE 100 MG TABLET (FP) PO SCH (10:10)
[2017-10-11] MEDS: FERROUS SO4 325 MG TABLET (FP) PO SCH (10:10)
[2017-10-11] MEDS: NICOTINE 14 MG/24 HOURS TOPICAL PATCH TD SCH (10:10)
[2017-10-11] MEDS: CYCLOBENZAPRINE HCL 10 MG TABLET (FP) PO PRN (10:11)
[2017-10-11] MEDS: PANTOPRAZOLE 40 MG TABLET (FP) PO SCH (10:11)
--- NOTE | 2017-10-11 12:12 | PN ---
[facility] Progress Note (SOAP) Subjective: Vomiting, Interrupted Sleep, Tremors. Objective: PT. A & O X 2 (UNCERTAIN ABOUT DAY / DATE). PT. OBSERVED AMBULATING ON UNIT. NO ACUTE DISTRESS. 10/11/17 12:10 Vital Signs Temperature 98.7 F 10/11/17 09:26 Pulse Rate 85 10/11/17 09:26 Respiratory Rate 16 10/11/17 09:26 Blood Pressure 124/67 10/11/17 09:26 O2 Sat by Pulse Oximetry (%) Laboratory Tests 10/07/17 10/08/17 10/08/17 21:30 07:00 07:00 WBC 5.7 RBC 3.58 L Hgb 10.4 L Hct 31.4 L MCV 87.5 MCH 29.0 MCHC 33.2 RDW 17.2 H Plt Count 269 D MPV 8.5 Sodium 133 L Potassium 4.3 Chloride 97 L Carbon Dioxide 25 Anion Gap 11 BUN 9 Creatinine 0.7 D Creat Clearance w eGFR > 60 Random Glucose 104 D Calcium 8.5 Total Bilirubin 0.6 D AST 38 H D ALT 24 D Alkaline Phosphatase 59 Total Protein 7.0 Albumin 3.2 L Urine Color Ltyellow Urine Appearance Clear Urine pH 6.0 Ur Specific [place] 1.005 Urine Protein Negative Urine Glucose (UA) Negative Urine Ketones Negative Urine Blood Negative Urine Nitrite Negative Urine Bilirubin Negative Urine Urobilinogen Negative Ur Leukocyte Esterase Negative RPR Titer HIV 1&2 Antibody Screen HIV P24 Antigen 10/08/17 10/08/17 07:00 07:00 WBC RBC Hgb Hct MCV MCH MCHC RDW Plt Count MPV Sodium Potassium Chloride Carbon Dioxide Anion Gap BUN Creatinine Creat Clearance w eGFR Random Glucose Calcium Total Bilirubin AST ALT Alkaline Phosphatase Total Protein Albumin Urine Color Urine Appearance Urine pH Ur Specific [place] Urine Protein Urine Glucose (UA) Urine Ketones Urine Blood Urine Nitrite Urine Bilirubin Urine Urobilinogen Ur Leukocyte Esterase RPR Titer Nonreactive HIV 1&2 Antibody Screen Negative HIV P24 Antigen Negative LABS NOTED. Assessment: 10/11/17 12:11 WITHDRAWAL SYMPTOMS. Plan: CONTINUE DETOX.
[2017-10-11] MEDS: THIAMINE HCL 100 MG TABLET (FP) PO SCH (22:13)
[2017-10-11] MEDS: QUEtiapine FUMARATE 300 MG TABLET PO SCH (22:13)
[2017-10-12] MEDS ORDERED: METHADONE HCL 5 MG TABLET (FOR DETOX USE ONLY) PO SCH (06:00)
[2017-10-12] MEDS: GABAPENTIN 100 MG CAPSULE (FP) PO SCH ×3 (07:30→22:12)
[2017-10-12] MEDS: PRENATAL VITAMINS W/ FOLIC ACID TABLET (FP) PO SCH (10:00)
[2017-10-12] MEDS: FERROUS SO4 325 MG TABLET (FP) PO SCH (10:00)
[2017-10-12] MEDS: NICOTINE 14 MG/24 HOURS TOPICAL PATCH TD SCH (10:02)
[2017-10-12] MEDS: PANTOPRAZOLE 40 MG TABLET (FP) PO SCH (11:23)
[2017-10-12] MEDS: QUEtiapine FUMARATE 100 MG TABLET (FP) PO SCH (11:23)
--- NOTE | 2017-10-12 14:52 | PN ---
S Progress Note (SOAP) Subjective: Disoriented; denies sob, chest pain, abdominal pain, n/v/c/d. Patient stated today is October 08, 1979. He is aware of his surrounding and knows the name of the president of the [place] Patient reports having a PCP at [address] [place] [address] in [place]. He reports having a scheduled EGD at [facility] in [place] on 10/20/17 at 9:15am. Patient scheduled for discharge home today but is too confused to leave. Discharge canceled until patient more stable. Objective: 10/12/17 14:50 Last Vital Signs Temp Pulse Resp BP Pulse Ox 97.1 F L 95 H 20 139/70 10/12/17 09:45 10/12/17 09:45 10/12/17 09:45 10/12/17 09:45 Laboratory Tests 10/07/17 10/08/17 10/08/17 21:30 07:00 07:00 WBC 5.7 RBC 3.58 L Hgb 10.4 L Hct 31.4 L MCV 87.5 MCH 29.0 MCHC 33.2 RDW 17.2 H Plt Count 269 D MPV 8.5 Sodium 133 L Potassium 4.3 Chloride 97 L Carbon Dioxide 25 Anion Gap 11 BUN 9 Creatinine 0.7 D Creat Clearance w eGFR > 60 Random Glucose 104 D Calcium 8.5 Total Bilirubin 0.6 D AST 38 H D ALT 24 D Alkaline Phosphatase 59 Ammonia Total Protein 7.0 Albumin 3.2 L Urine Color Ltyellow Urine Appearance Clear Urine pH 6.0 Ur Specific [place] 1.005 Urine Protein Negative Urine Glucose (UA) Negative Urine Ketones Negative Urine Blood Negative Urine Nitrite Negative Urine Bilirubin Negative Urine Urobilinogen Negative Ur Leukocyte Esterase Negative RPR Titer HIV 1&2 Antibody Screen HIV P24 Antigen 10/08/17 10/08/17 10/12/17 07:00 07:00 07:20 WBC RBC Hgb Hct MCV MCH MCHC RDW Plt Count MPV Sodium Potassium Chloride Carbon Dioxide Anion Gap BUN Creatinine Creat Clearance w eGFR Random Glucose Calcium Total Bilirubin AST ALT Alkaline Phosphatase Ammonia 74.85 H Total Protein Albumin Urine Color Urine Appearance Urine pH Ur Specific [place] Urine Protein Urine Glucose (UA) Urine Ketones Urine Blood Urine Nitrite Urine Bilirubin Urine Urobilinogen Ur Leukocyte Esterase RPR Titer Nonreactive HIV 1&2 Antibody Screen Negative HIV P24 Antigen Negative Labs noted: serum ammonia level of 74.85 most likely due to liver disease Assessment: 10/12/17 14:52 Withdrawal symptoms Noted with AMS and hyperammonemia secondary to chronic hepatitis Plan: Continue detox AMS: reorient prn, safety monitoring, hold discharge until ammonia level stabilized and improved mental status, one to one observation for safety (can re -evaluate in AM if should continue 1:1 observation) Hyperammonemia secondary to chronic hepatitis: start lactulose 30ml PO qid, repeat ammonia level in AM, encouraged to drink lots of water (water pitcher ordered), repeat BMP and CBC in AM
[2017-10-12] MEDS: LACTULOSE 20 GM/30 ML UDC (FOR ORAL USE ONLY) PO SCH ×2 (17:25→22:12)
[2017-10-12] MEDS: THIAMINE HCL 100 MG TABLET (FP) PO SCH (22:12)
[2017-10-12] MEDS: QUEtiapine FUMARATE 300 MG TABLET PO SCH (22:12)
[2017-10-13] MEDS: ACETAMINOPHEN 325 MG TABLET (FP) PO PRN (05:47)
[2017-10-13] MEDS: GABAPENTIN 100 MG CAPSULE (FP) PO SCH ×3 (05:47→22:16)
--- NOTE | 2017-10-13 09:15 | PN ---
[facility] Progress Note (SOAP) Subjective: Sweating, Anxious, Body Aches, H/A, Stomach Cramping. Objective: PATIENT A & O X 3, OBSERVED AMBULATING ON UNIT. NO ACUTE DISTRESS. PATIENT APPEARS LUCID, NOT SHOWING ANY CURRENT SIGNS OF CONFUSION. PATIENT ABLE TO AMBULATE ON UNIT UNASSISTED. 10/13/17 09:11 Vital Signs Temperature 97.8 F 10/13/17 06:37 Pulse Rate 77 10/13/17 06:37 Respiratory Rate 18 10/13/17 06:37 Blood Pressure 122/72 10/13/17 06:37 O2 Sat by Pulse Oximetry (%) Laboratory Tests 10/07/17 10/08/17 10/08/17 21:30 07:00 07:00 WBC 5.7 RBC 3.58 L Hgb 10.4 L Hct 31.4 L MCV 87.5 MCH 29.0 MCHC 33.2 RDW 17.2 H Plt Count 269 D MPV 8.5 Sodium 133 L Potassium 4.3 Chloride 97 L Carbon Dioxide 25 Anion Gap 11 BUN 9 Creatinine 0.7 D Creat Clearance w eGFR > 60 Random Glucose 104 D Calcium 8.5 Total Bilirubin 0.6 D AST 38 H D ALT 24 D Alkaline Phosphatase 59 Ammonia Total Protein 7.0 Albumin 3.2 L Urine Color Ltyellow Urine Appearance Clear Urine pH 6.0 Ur Specific [place] 1.005 Urine Protein Negative Urine Glucose (UA) Negative Urine Ketones Negative Urine Blood Negative Urine Nitrite Negative Urine Bilirubin Negative Urine Urobilinogen Negative Ur Leukocyte Esterase Negative RPR Titer HIV 1&2 Antibody Screen HIV P24 Antigen 10/08/17 10/08/17 10/12/17 07:00 07:00 07:20 WBC RBC Hgb Hct MCV MCH MCHC RDW Plt Count MPV Sodium Potassium Chloride Carbon Dioxide Anion Gap BUN Creatinine Creat Clearance w eGFR Random Glucose Calcium Total Bilirubin AST ALT Alkaline Phosphatase Ammonia 74.85 H Total Protein Albumin Urine Color Urine Appearance Urine pH Ur Specific [place] Urine Protein Urine Glucose (UA) Urine Ketones Urine Blood Urine Nitrite Urine Bilirubin Urine Urobilinogen Ur Leukocyte Esterase RPR Titer Nonreactive HIV 1&2 Antibody Screen Negative HIV P24 Antigen Negative LABS NOTED. Assessment: 10/13/17 09:13 WITHDRAWAL SYMPTOMS. Plan: CONTINUE DETOX. 1:1 CONTINUOUS OBSERVATION STATUS D/C 'D. CONTINUE LACTULOSE. ENCOURAGE DAILY PO FLUID INTAKE. AWAITING FOLLOW-UP AMMONIA LEVEL. PATIENT ADVISED TO MAKE APPOINTMENT FOR FOLLOW-UP MEDICAL EVALUATION WITH BUND[employer]ER DR. BARBA FOR HISTORY OF HEPATITIS AND ESOPHAGEAL DISORDER.
[2017-10-13] MEDS: FERROUS SO4 325 MG TABLET (FP) PO SCH (10:10)
[2017-10-13] MEDS: PRENATAL VITAMINS W/ FOLIC ACID TABLET (FP) PO SCH (10:10)
[2017-10-13] MEDS: QUEtiapine FUMARATE 100 MG TABLET (FP) PO SCH (10:10)
[2017-10-13] MEDS: PANTOPRAZOLE 40 MG TABLET (FP) PO SCH (10:10)
[2017-10-13] MEDS: LACTULOSE 20 GM/30 ML UDC (FOR ORAL USE ONLY) PO SCH ×4 (10:10→22:16)
[2017-10-13] MEDS: NICOTINE 14 MG/24 HOURS TOPICAL PATCH TD SCH (10:11)
[2017-10-13 10:18] LABS: BASOPHIL 0.6 % (0-2.0); MCH 28.6 pg (25.7-33.7); MCHC 32.3 g/dl (32.0-35.9); MEAN CELL VOLUME 88.5 fl (80-96); MEAN PLT VOLUME 8.6 fl (7.5-11.1); NEUTROPHILS 46.4 % (42.8-82.8); PLATELET COUNT 257 K/MM3 (134-434); RDW 17.6 % (11.9-15.9); WHITE BLOOD COUNT 5.3 K/mm3 (4.0-10.0)
[2017-10-13 10:51] LABS: ANION GAP 9 (8-16); CALCIUM 8.4 mg/dL (8.5-10.1); CO2 25 mmol/L (21-32); CREATININE 0.8 mg/dL (0.7-1.3); GLUCOSE,RANDOM 132 mg/dL (74-106)
[2017-10-13] MEDS: THIAMINE HCL 100 MG TABLET (FP) PO SCH (22:16)
[2017-10-13] MEDS: QUEtiapine FUMARATE 300 MG TABLET PO SCH (22:16)
[2017-10-14] MEDS: GABAPENTIN 100 MG CAPSULE (FP) PO SCH (05:41)
[2017-10-14] MEDS: PANTOPRAZOLE 40 MG TABLET (FP) PO SCH (09:37)
[2017-10-14] MEDS: LACTULOSE 20 GM/30 ML UDC (FOR ORAL USE ONLY) PO SCH (09:37)
[2017-10-14] MEDS: QUEtiapine FUMARATE 100 MG TABLET (FP) PO SCH (09:38)
[2017-10-14] MEDS: PRENATAL VITAMINS W/ FOLIC ACID TABLET (FP) PO SCH (09:38)
[2017-10-14] MEDS: FERROUS SO4 325 MG TABLET (FP) PO SCH (09:38)
[2017-10-14 10:52] VITALS: BP 114/72; PULSE 90; TEMP 97.2
--- NOTE | 2017-10-14 15:39 | DS ---
[facility] Detox Discharge Summary Admission Date: 10/07/17 Discharge Date: 10/14/17 - History Present History: Alcohol Dependence, Opioid Dependence Additional Comments: PATIENT TO GO TO [facility] OUTPATIENT SUBSTANCE USE TREATMENT PROGRAM ([facility]) FOR AFTERCARE. PATIENT ADVISED TO MAKE FOLLOW-UP APPOINTMENT WITH BIOMECH[employer]INEER DR. BARBA SOON POSSIBLE AFTER DISCHARGE FROM DETOX FOR FOLLOW-UP ASSESSMENT FOR HISTORY OF LIVER DISEASE (INCLUDING HEP C) AND FOR ESOPHAGEAL DISORDER. PATIENT WAS DISCHARGED FROM DETOX UNIT IN STABLE MEDICAL CONDITION. Pertinent Past History: HTN, History of Hep A, Hep B, Hep C, Asthma, Depression, Nicotine Dependence, Hyperammonemia, Insomnia, GERD, Bipolar Disorder, History of Anemia, Arthritis of Hip, Use of Cans as Ambulatory Aid, Chronic Low Back Pain. - Physical Exam Results Vital Signs: Vital Signs Temperature 97.2 F L 10/14/17 10:51 Pulse Rate 90 10/14/17 10:51 Respiratory Rate 16 10/14/17 10:51 Blood Pressure 114/72 10/14/17 10:51 O2 Sat by Pulse Oximetry (%) Pertinent Admission Physical Exam Findings: WITHDRAWAL SYMPTOMS. Laboratory Tests 10/07/17 10/08/17 10/08/17 21:30 07:00 07:00 WBC 5.7 RBC 3.58 L Hgb 10.4 L Hct 31.4 L MCV 87.5 MCH 29.0 MCHC 33.2 RDW 17.2 H Plt Count 269 D MPV 8.5 Neutrophils % Lymphocytes % Monocytes % Eosinophils % Basophils % Sodium 133 L Potassium 4.3 Chloride 97 L Carbon Dioxide 25 Anion Gap 11 BUN 9 Creatinine 0.7 D Creat Clearance w eGFR > 60 Random Glucose 104 D Calcium 8.5 Total Bilirubin 0.6 D AST 38 H D ALT 24 D Alkaline Phosphatase 59 Ammonia Total Protein 7.0 Albumin 3.2 L Urine Color Ltyellow Urine Appearance Clear Urine pH 6.0 Ur Specific [place] 1.005 Urine Protein Negative Urine Glucose (UA) Negative Urine Ketones Negative Urine Blood Negative Urine Nitrite Negative Urine Bilirubin Negative Urine Urobilinogen Negative Ur Leukocyte Esterase Negative RPR Titer HIV 1&2 Antibody Screen HIV P24 Antigen 10/08/17 10/08/17 10/12/17 07:00 07:00 07:20 WBC RBC Hgb Hct MCV MCH MCHC RDW Plt Count MPV Neutrophils % Lymphocytes % Monocytes % Eosinophils % Basophils % Sodium Potassium Chloride Carbon Dioxide Anion Gap BUN Creatinine Creat Clearance w eGFR Random Glucose Calcium Total Bilirubin AST ALT Alkaline Phosphatase Ammonia 74.85 H Total Protein Albumin Urine Color Urine Appearance Urine pH Ur Specific [place] Urine Protein Urine Glucose (UA) Urine Ketones Urine Blood Urine Nitrite Urine Bilirubin Urine Urobilinogen Ur Leukocyte Esterase RPR Titer Nonreactive HIV 1&2 Antibody Screen Negative HIV P24 Antigen Negative 10/13/17 10/13/17 10/13/17 07:00 07:00 07:00 WBC 5.3 RBC 3.26 L Hgb 9.3 L D Hct 28.8 L MCV 88.5 MCH 28.6 MCHC 32.3 RDW 17.6 H Plt Count 257 MPV 8.6 Neutrophils % 46.4 Lymphocytes % 32.8 Monocytes % 12.2 H Eosinophils % 8.0 H Basophils % 0.6 Sodium 138 Potassium 4.3 Chloride 104 Carbon Dioxide 25 Anion Gap 9 BUN 12 D Creatinine 0.8 Creat Clearance w eGFR Random Glucose 132 H D Calcium 8.4 L Total Bilirubin AST ALT Alkaline Phosphatase Ammonia 47.88 H Total Protein Albumin Urine Color Urine Appearance Urine pH Ur Specific [place] Urine Protein Urine Glucose (UA) Urine Ketones Urine Blood Urine Nitrite Urine Bilirubin Urine Urobilinogen Ur Leukocyte Esterase RPR Titer HIV 1&2 Antibody Screen HIV P24 Antigen LABS NOTED. - Treatment Hospital Course: Detox Protocol Followed, Detoxed Safely, Responded well, Discharged Condition Good Patient has Accepted a Rehab Referral to: PT GOING TO [facility] SUBSTANCE USE OUTPATIENT [place]GRAM [place] - Medication Discharge Medications: Ambulatory Orders Gabapentin [Neurontin -] 100 mg PO TID #90 capsule 03/05/17 Pantoprazole Sodium [Protonix] 40 mg PO DAILY #30 tablet. 03/05/17 Quetiapine Fumarate [Seroquel -] 100 mg PO DAILY 10/07/17 Quetiapine Fumarate [Seroquel -] 300 mg PO HS 10/07/17 Bupropion HCl [Bupropion Xl] 150 mg PO DAILY #30 tab.er.24h 10/10/17 Quetiapine Fumarate [Seroquel -] 300 mg PO HS #30 tab 10/10/17 Albuterol Sulfate Inhaler - [Ventolin HFA Inhaler -] 2 puff IH Q4H PRN #1 inhaler 10/11/17 - Diagnosis (1) Alcohol dependence with uncomplicated withdrawal Status: Acute (2) Nicotine dependence Status: Acute Qualifiers: Nicotine product type: cigarettes Substance use status: in withdrawal Qualified Code(s): F17.213 - Nicotine dependence, cigarettes, with withdrawal (3) Opioid dependence with withdrawal Status: Acute (4) Substance induced mood disorder Status: Acute (5) Weight loss Status: Acute (6) Asthma Status: Chronic Qualifiers: Asthma severity: mild Asthma complication type: uncomplicated (7) Bipolar disorder Status: Chronic Qualifiers: Active/Remission status: remission status unspecified Qualified Code(s): F31.9 - Bipolar disorder, unspecified (8) Chronic low back pain Status: Chronic Qualifiers: Back pain laterality: unspecified Sciatica presence: without sciatica Qualified Code(s): M54.5 - Low back pain; G89.29 - Other chronic pain; G89.29 - Other chronic pain (9) Essential hypertension Status: Chronic (10) GERD (gastroesophageal reflux disease) Status: Chronic Qualifiers: Esophagitis presence: without esophagitis Qualified Code(s): K21.9 - Gastro -esophageal reflux disease without esophagitis (11) Arthritis, hip Status: Chronic (12) Use of cane as ambulatory aid Status: Chronic (13) Bipolar I disorder Status: Suspected - AMA Did Patient Leave Against Medical Advice: No
== END 2017-10-14 10:57 | disposition home or self-care (01) | DRG 773 ==
LOC: YASAS 13:43 → Y3N 18:03
PROVIDERS: ADMIT Internal Medicine; ATTEND Internal Medicine
PROC: HZ2ZZZZ Detoxification Services for Substance Abuse Treatment (ICD-10-PCS; principal; 2017-10-07)
DX: F11.23 Opioid dependence with withdrawal (principal); F10.230 Alcohol dependence with withdrawal, uncomplicated; F17.213 Nicotine dependence, cigarettes, with withdrawal; F31.89 Other bipolar disorder; F19.24 Other psychoactive substance dependence with psychoactive substance-induced mood disorder; G47.00 Insomnia, unspecified; I10 Essential (primary) hypertension; K21.9 Gastro-esophageal reflux disease without esophagitis; M54.5 Low back pain; G89.29 Other chronic pain; B15.9 Hepatitis A without hepatic coma; B19.10 Unspecified viral hepatitis B without hepatic coma; B19.20 Unspecified viral hepatitis C without hepatic coma; Z99.89 Dependence on other enabling machines and devices; Z91.5 Personal history of self-harm
CPT/HCPCS: 36415; 80048; 80053; 81003; 82140; 85025; 85027; 86593; 87389; 90688; 93005; 93010

== ENCOUNTER 2018-04-06 16:21 | Inpatient (IN) | payer OTHER ==
[2018-04-06 18:13] VITALS: BMI 21.2
--- NOTE | 2018-04-06 21:19 | HP ---
COWS - Scale Resting Pulse: 1= [place] 81-100 Sweatin= Chills/Flushing Restless Observation: 5= Unable to Sit Still Pupil Size: 1= Pupils >than Normal Bone or Joint Aches: 4=Acute Joint/Muscle Pain Runny Nose/ Eye Tearin= Constantly Teary/Runny GI Upset > 30mins: 3= Vomiting/Diarrhea Tremor Observation: 2= Slight Tremor Visible Yawning Observation: 1= 1-2x During Session Anxiety or Irritability: 2=Irritable/Anxious Goose Flesh Skin: 0=Smooth Skin COWS Score: 24 CIWA Score - CIWA Score Nausea/Vomitin Muscle Tremors: 2 Anxiety: 3 Agitation: 4-Moderately Restless Paroxysmal Sweats: 3 Orientation: 2-Disoriented Date<2 days Tacttile Disturbances: 2-Mild Itch/Numbness/Burn Auditory Disturbances: 0-None Visual Disturbances: 1-Very Mild Sensitivity (SEE SHADOWS SOMETIMES) Headache: 0-None Present CIWA-Ar Total Score: 20 Admission ROS S - HPI Chief Complaint: C/O WITHDRAWAL SX'S R/T ALCOHOL AND HEROIN DEPENDENCE Allergies/Adverse Reactions: Allergies Allergy/AdvReac Type Severity Reaction Status Date / Time No Known Allergies Allergy Verified 10/07/17 17:48 History of Present Illness: 67 Y.O. MAN WITH A HISTORY OF OPIOID AND ALCOHOL DEPENDENCE IS HERE SEEKING DETOX. HE HAS HAD MULTIPLE ADMISSIONS HERE FOR DETOX WITH HIS LAST ADMISSION BEING 09/2017. HE DOES NOT HAVE A SIGNIFICANT PERIOD CLEAN. REPORTS PMHX BIPOLAR, ASTHMA, HTN, HEP A,B,C, DEPRESSION, AMBULATES WITH CANE DUE OA. Exam Limitations: Physical Impairment (AMBULATES WITH A CANE) - Ebola screening Have you traveled outside of the country in the last 21 days: No Have you had contact with anyone from an Ebola affected area: No Have you been sick,other than usual withdrawal symptoms: No Do you have a fever: No - Review of Systems Constitutional: Chills, Loss of Appetite, Malaise, Night Sweats, Changes in sleep, Unintentional Wgt. Loss EENT: reports: Dental Problems (MISSING TEETH) Respiratory: reports: Shortness of Breath (R/T ASTHMA) Cardiac: reports: No Symptoms Reported GI: reports: Nausea, Poor Appetite, Poor Fluid Intake, Vomiting, Abdominal cramping : reports: No Symptoms Reported Musculoskeletal: reports: Back Pain (R/T OA), Joint Stiffness Integumentary: reports: No Symptoms Reported Neuro: reports: No Symptoms reported Endocrine: reports: No Symptoms Reported Hematology: reports: No Symptoms Reported Psychiatric: reports: Depressed, other (BIPOLAR) Other Systems: Reviewed and Negative Patient History - Patient Medical History Hx Anemia: No Hx Asthma: Yes Hx Chronic Obstructive Pulmonary Disease (COPD): No Hx Cancer: No Hx Cardiac Disorders: No Hx Congestive Heart Failure: No Hx Hypertension: Yes (not on meds.) Hx Hypercholesterolemia: No Hx Pacemaker: No HX Cerebrovascular Accident: No Hx Seizures: No Hx Dementia: No Hx Diabetes: No Hx Gastrointestinal Disorders: No Hx Liver Disease: Yes (hepatitis a,b,c) Hx Genitourinary Disorders: No Hx Sexually Transmitted Disorders: No Hx Renal Disease (ESRD): No Hx Thyroid Disease: No Hx Human Immunodeficiency Virus (HIV): No Hx Hepatitis C: Yes (incomplete treatment) Hx Depression: Yes Hx Suicide Attempt: Yes (Pt states he tried to overdose in 2011) Hx Bipolar Disorder: Yes (seroquel wellbutrin) Hx Schizophrenia: No Other Medical History: OSTEOARTHRITIS - Patient Surgical History Past Surgical History: Yes Hx Neurologic Surgery: No Hx Cataract Extraction: No Hx Cardiac Surgery: No Hx Lung Surgery: No Hx Breast Surgery: No Hx Breast Biopsy: No Hx Abdominal Surgery: No Hx Appendectomy: No Hx Cholecystectomy: No Hx Genitourinary Surgery: No Hx Section: No Hx Orthopedic Surgery: Yes (left cheek bone and nasal surgery 1970) Other Surgical History: reconstructive sx, nose and left cheekbone in 1971 Anesthesia Reaction: No - PPD History Previous Implant?: Yes Documented Results: Negative w/proof Implanted On Prior [facility] Admission?: Yes Date: 10/09/17 Results: 0mm PPD to be Administered?: No - Smoking Cessation Smoking history: Current every day smoker Have you smoked in the past 12 months: Yes Aproximately how many cigarettes per day: 4 Cigars Per Day: 0 Hx Chewing Tobacco Use: No Initiated information on smoking cessation: Yes 'Breaking Loose' booklet given: 04/06/18 - Substance & Tx. History Hx Alcohol Use: Yes Hx Substance Use: Yes Substance Use Type: Alcohol, Heroin Hx Substance Use Treatment: Yes ([facility]) - Substances Abused BEER Route: Oral Frequency: Daily Amount used: 7-16OZ Age of first use: 27 Date of Last Use: 04/06/18 HEROIN Route: Inhalation Frequency: Daily Amount used: 3-4 BAGS Age of first use: 16 Date of Last Use: 04/06/18 Family Disease History - Family Disease History Family Disease History: Respiratory: Father (), Other: Mother ( ALCOHOLIC Cirrhosis), Brother (ALCOHOL), Sister (ALCOHOL) Admission Physical Exam S - Vital Signs Vital Signs: Vital Signs - 24 hr 04/06/18 18:12 Temperature 97.2 F L Pulse Rate 83 Respiratory 18 Rate Blood Pressure 132/76 - Physical General Appearance: Yes: Appropriately Dressed, Mild Distress, Thin, Tremorous, Sweating, Anxious HEENTM: Yes: EOMI, Normocephalic, Normal Voice, [place], Pharynx Normal, Rhinorrhea , Other (EDENTULOUS) Respiratory: Yes: Chest Non-Tender, Lungs Clear, Normal Breath Sounds, No Respiratory Distress, No Accessory Muscle Use Neck: Yes: No masses,lesions,Nodules, Supple, Trachea in good position Breast: Yes: Breast Exam Deferred Cardiology: Yes: Regular Rhythm, Regular Rate, S1, S2 Abdominal: Yes: Normal Bowel Sounds, Non Tender, Flat, Soft Genitourinary: Yes: Within Normal Limits Back: Yes: Normal Inspection Musculoskeletal: Yes: Joint Stiffness (R/T OA), Other (AMBUALTES WITH A CANE) Extremities: Yes: Normal Capillary Refill, Normal Range of Motion, Non-Tender, Tremors Neurological: Yes: Alert, Confused Integumentary: Yes: Warm, Moist Lymphatic: Yes: Within Normal Limits - Diagnostic (1) Acute on chronic alteration in mental status Current Visit: Yes Status: Chronic (2) Alcohol dependence with uncomplicated withdrawal Current Visit: Yes Status: Chronic (3) Nicotine dependence Current Visit: Yes Status: Chronic Qualifiers: Nicotine product type: cigarettes Substance use status: in withdrawal Qualified Code(s): F17.213 - Nicotine dependence, cigarettes, with withdrawal Comment: . (4) Opioid dependence with withdrawal Current Visit: Yes Status: Chronic (5) Substance induced mood disorder Current Visit: Yes Status: Suspected (6) Weight loss Current Visit: Yes Status: Chronic (7) Arthritis, hip Current Visit: Yes Status: Chronic (8) Asthma Current Visit: Yes Status: Chronic Qualifiers: Asthma severity: mild Asthma complication type: uncomplicated (9) COPD (chronic obstructive pulmonary disease) Current Visit: Yes Status: Chronic Qualifiers: COPD type: chronic bronchitis Chronic bronchitis type: simple Qualified Code(s): J41.0 - Simple chronic bronchitis Comment: . (10) Chronic low back pain Current Visit: Yes Status: Chronic Qualifiers: Back pain laterality: unspecified Sciatica presence: without sciatica Qualified Code(s): M54.5 - Low back pain; G89.29 - Other chronic pain; G89.29 - Other chronic pain Comment: . (11) Essential hypertension Current Visit: Yes Status: Chronic Comment: . (12) GERD (gastroesophageal reflux disease) Current Visit: Yes Status: Chronic Qualifiers: Esophagitis presence: without esophagitis Qualified Code(s): K21.9 - Gastro -esophageal reflux disease without esophagitis (13) Hepatitis C carrier Current Visit: Yes Status: Chronic (14) Use of cane as ambulatory aid Current Visit: Yes Status: Chronic Cleared for Admission [facility] - Detox or Rehab [facility] Level of Care: Medically Managed Detox Regimen/Protocol: Methadone/Librium Claeared for Rehab Admission: No S Breath Alcohol Content Breath Alcohol Content: 0.101 Urine Drug Screen - Results Drug Screen Negative: No Urine Drug Screen Results: OPI-Opiates
[2018-04-06] MEDS ORDERED: ALBUTEROL SO4 18 GM HFA INHALER IH PRN (21:25)
[2018-04-06] MEDS ORDERED: NICOTINE POLACRILEX 2 MG GUM BC PRN (21:26)
[2018-04-06] MEDS ORDERED: LOPERAMIDE HCL 2 MG CAPSULE PO PRN (21:26)
[2018-04-06] MEDS ORDERED: METHADONE HCL 10 MG TABLET (FOR DETOX USE ONLY) PO ONE ×2 (21:26→23:00)
[2018-04-06] MEDS ORDERED: chlordiazePOXIDE HCL 25 MG CAPSULE PO PRN (21:26)
[2018-04-06] MEDS ORDERED: P-EPHED 60MG/TRIPROLIDI 2.5MG TABLET PO PRN (21:26)
[2018-04-06] MEDS ORDERED: MAGNESIUM CITRATE 300 ML BOTTLE PO PRN (21:26)
[2018-04-06] MEDS ORDERED: ACETAMINOPHEN 325 MG TABLET (FP) PO PRN (21:26)
[2018-04-06] MEDS ORDERED: MENTHOL/PHENOL 1 EACH UD MM PRN (21:26)
[2018-04-06] MEDS ORDERED: MAG HYDROX/AL HYDROX/SIMETH 30 ML UNIT-DOSE CUP PO PRN (21:26)
[2018-04-06] MEDS ORDERED: guaiFENesin/D-METHORPHAN HB 10 ML UNIT-DOSE CUPS PO PRN (21:26)
[2018-04-06] MEDS ORDERED: MAGNESIUM HYDROX 2400MG/30ML ORAL SUSPENSION 30 ML CUP PO PRN (21:26)
[2018-04-06] MEDS ORDERED: MELATONIN 5 MG TABLETS PO PRN (22:00)
[2018-04-06] MEDS: chlordiazePOXIDE HCL 25 MG CAPSULE PO SCH (22:53)
[2018-04-06] MEDS: THIAMINE HCL 100 MG TABLET (FP) PO SCH (22:53)
[2018-04-07 00:53] LABS: URINE APPEARANCE CLEAR; URINE BILIRUBIN NEGATIVE (<2.0 mg/dL); URINE COLOR YELLOW; URINE GLUCOSE (UA) NEGATIVE (NEGATIVE); URINE KETONE NEGATIVE (NEGATIVE); URINE LEUK ESTERASE NEGATIVE (NEGATIVE); URINE NITRITE NEGATIVE (NEGATIVE); URINE PROTEIN NEGATIVE (NEGATIVE); URINE UROBILINOGEN NEGATIVE mg/dL (0.2-1.0)
[2018-04-07] MEDS: chlordiazePOXIDE HCL 25 MG CAPSULE PO SCH ×4 (05:07→22:15)
[2018-04-07] MEDS ORDERED: METHADONE HCL 10 MG TABLET (FOR DETOX USE ONLY) PO SCH (10:00)
[2018-04-07 10:15] LABS: HEMOGLOBIN 10.5 GM/dL (11.7-16.9); MCHC 33.7 g/dl (32.0-35.9); MEAN CELL VOLUME 88.8 fl (80-96); MEAN PLT VOLUME 8.3 fl (7.5-11.1); PLATELET COUNT 286 K/MM3 (134-434); RBC 3.49 M/mm3 (4.00-5.60); RDW 17.2 % (11.9-15.9); WHITE BLOOD COUNT 5.2 K/mm3 (4.0-10.0)
[2018-04-07 10:21] LABS: ALBUMIN 3.3 g/dl (3.4-5.0); ANION GAP 7 (8-16); BLOOD UREA NITROGEN 13 mg/dL (7-18); CALCIUM 8.2 mg/dL (8.5-10.1); CHLORIDE 95 mmol/L (98-107); CO2 29 mmol/L (21-32); CREATININE 0.8 mg/dL (0.7-1.3); GLUCOSE,RANDOM 124 mg/dL (74-106); POTASSIUM 4.5 mmol/L (3.5-5.1); SGOT/AST 22 U/L (15-37); SODIUM 131 mmol/L (136-145)
[2018-04-07 10:23] LABS: ALK PHOS 71 U/L (45-117); BILIRUBIN,TOTAL 0.4 mg/dL (0.2-1.0); SGPT/ALT 21 U/L (12-78); TOT PROT 7.5 g/dl (6.4-8.2)
[2018-04-07] MEDS: NICOTINE 14 MG/24 HOURS TOPICAL PATCH TD SCH (10:26)
[2018-04-07] MEDS: PRENATAL VITAMINS W/ FOLIC ACID TABLET (FP) PO SCH (10:26)
--- NOTE | 2018-04-07 11:59 | EKG ---
Test Reason : Blood Pressure : / mmHG Vent. Rate : 069 BPM Atrial Rate : 069 BPM P-R Int : 172 ms QRS Dur : 088 ms QT Int : 422 ms P-R-T Axes : 048 066 061 degrees QTc Int : 452 ms NORMAL SINUS RHYTHM VOLTAGE CRITERIA FOR LEFT VENTRICULAR HYPERTROPHY ABNORMAL ECG WHEN COMPARED WITH ECG OF 07-OCT-2017 21:02, NO SIGNIFICANT CHANGE WAS FOUND Confirmed by MD MADIHA, IOANA ([id number]) on 04/07/2018 11:59:46 AM Referred By: Confirmed By:IOANA CLEARY MD
--- NOTE | 2018-04-07 12:29 | PN ---
S CIWA - CIWA Score Nausea/Vomitin-No Nausea/No Vomiting Muscle Tremors: 3 Anxiety: 3 Agitation: 3 Paroxysmal Sweats: 3 Orientation: 0-Oriented Tacttile Disturbances: 3-Moderate Itch/Numb/Burn Auditory Disturbances: 0-None Visual Disturbances: 0-None Headache: 3-Moderate CIWA-Ar Total Score: 18 [facility] COWS - Scale Resting Pulse: 1= [place] 81-100 Sweatin= Chills/Flushing Restless Observation: 0= Sits Still Pupil Size: 0= Normal to Room Light Bone or Joint Aches: 1= Mild Discomfort Runny Nose/ Eye Tearin= None GI Upset > 30mins: 1= Stomach Cramp Tremor Observation of Outstretched Hands: 2= Slight Tremor Visible Yawning Observation: 1= 1-2x During Session Anxiety or Irritability: 2=Irritable/Anxious Goose Flesh Skin: 3=Piloerection COWS Score: 12 [facility] Progress Note (SOAP) Subjective: Constipation, H/A, Tremors, Sweating. Objective: PATIENT A & O X 3, OBSERVED AMBULATING ON UNIT. NO ACUTE DISTRESS. 04/07/18 12:28 Vital Signs Temperature 98.9 F 04/07/18 09:26 Pulse Rate 85 04/07/18 09:26 Respiratory Rate 18 04/07/18 09:26 Blood Pressure 114/62 04/07/18 09:26 O2 Sat by Pulse Oximetry (%) Laboratory Tests 04/06/18 04/07/18 04/07/18 23:50 07:00 07:00 WBC 5.2 RBC 3.49 L Hgb 10.5 L D Hct 31.0 L MCV 88.8 MCH 30.0 MCHC 33.7 RDW 17.2 H Plt Count 286 MPV 8.3 Sodium 131 L Potassium 4.5 Chloride 95 L Carbon Dioxide 29 Anion Gap 7 L BUN 13 Creatinine 0.8 Creat Clearance w eGFR > 60 Random Glucose 124 H Calcium 8.2 L Total Bilirubin 0.4 D AST 22 D ALT 21 Alkaline Phosphatase 71 D Total Protein 7.5 Albumin 3.3 L Urine Color Yellow Urine Appearance Clear Urine pH 5.0 Ur Specific [place] 1.013 Urine Protein Negative Urine Glucose (UA) Negative Urine Ketones Negative Urine Blood Negative Urine Nitrite Negative Urine Bilirubin Negative Urine Urobilinogen Negative Ur Leukocyte Esterase Negative RPR Titer 04/07/18 07:00 WBC RBC Hgb Hct MCV MCH MCHC RDW Plt Count MPV Sodium Potassium Chloride Carbon Dioxide Anion Gap BUN Creatinine Creat Clearance w eGFR Random Glucose Calcium Total Bilirubin AST ALT Alkaline Phosphatase Total Protein Albumin Urine Color Urine Appearance Urine pH Ur Specific [place] Urine Protein Urine Glucose (UA) Urine Ketones Urine Blood Urine Nitrite Urine Bilirubin Urine Urobilinogen Ur Leukocyte Esterase RPR Titer Nonreactive LABS NOTED. Assessment: 04/07/18 12:28 WITHDRAWAL SYMPTOMS. Plan: CONTINUE DETOX. INCREASE DAILY PO FLUID INTAKE.
--- NOTE | 2018-04-07 12:42 | CONSULT ---
[facility] Psychiatric Consult - Data Date of interview: 04/07/18 Admission source: [facility] Identifying data: Patient is a 67 year old single male, father of one, unemployed, domiciled, and supported by [facility]. This is one of multiple admissions for patient. Pt. admitted to for alcohol and opiate dependence. Substance Abuse History: Following information confirmed with Mr. Tenorio: - Smoking Cessation. Smoking history: Current every day smoker. Have you smoked in the past 12 months: Yes. Aproximately how many cigarettes per day: 4. Cigars Per Day: 0. Hx Chewing Tobacco Use: No. Initiated information on smoking cessation: Yes. 'Breaking Loose' booklet given: 04/06/18. - Substance & Tx. History. Hx Alcohol Use: Yes. Hx Substance Use: Yes. Substance Use Type : Alcohol, Heroin. Hx Substance Use Treatment: Yes ([facility]). - Substances Abused. BEER. Route: Oral. Frequency: Daily. Amount used: 7-16OZ. Age of first use: 27. Date of Last Use: 04/06/18. HEROIN. Route: Inhalation. Frequency: Daily. Amount used: 3-4 BAGS. Age of first use: 16. Date of Last Use: 04/06/18 Medical History: left cheek bone and nasal surgery 1970, hypertension, Hep C, Osteoarthritis Psychiatric History: Patient reports several psychiatric hospitalizations, most recently in August of 2017 at [facility]. Pt. is also known to [facility]. Pt. currently receives his prescriptions from his PCP in [place]. Patient with h/o receiving his refills from emergency rooms, detox/ rehab facilities. Pt. with a diagnosis of bipolar disorder. Pt. is prescribed Seroquel 100mg PO daily + Seroquel 300qhs+ Wellbutrin 150mg XL +Gabapentin 100mg TID. Pt reports one suicide attempt in 2011 via overdose. Physical/Sexual Abuse/Trauma History: Denies. Mental Status Exam - Mental Status Exam Alert and Oriented to: Time, Place, Person Cognitive Function: Good Patient Appearance: Well Groomed Mood: Hopeful Affect: Mood Congruent Patient Behavior: Appropriate, Cooperative Speech Pattern: Appropriate Voice Loudness: Normal Thought Process: Intact, Goal Oriented Thought Disorder: Not Present Hallucinations: Denies Suicidal Ideation: Denies Homicidal Ideation: Denies Insight/Judgement: Poor Sleep: Poorly Appetite: Fair Muscle strength/Tone: Normal Gait/Station: Other (Patient ambulates with a cane.) Psychiatric Findings - Problem List ([place] 1, 2,3) (1) Alcohol dependence with uncomplicated withdrawal Current Visit: Yes Status: Acute (2) Opioid dependence with withdrawal Current Visit: Yes Status: Acute (3) Substance induced mood disorder Current Visit: Yes Status: Acute (4) Bipolar disorder Current Visit: Yes Status: Chronic Qualifiers: Active/Remission status: remission status unspecified Qualified Code(s): F31.9 - Bipolar disorder, unspecified Comment: As per records.On medications. (5) Insomnia Current Visit: Yes Status: Acute - Initial Treatment Plan Initial Treatment Plan: Psychoeducation provided. Detoxification in progress. Wellbutrin 150mg XL + Seroquel 100mg PO daily + Seroquel 200mg qhs (reduce dosage. Will increase to 300mg if patient can tolerate current dose) + gabapentin 100mg TID. Benefits and side effects discussed. Verbal consent given. Will continue to monitor.
[2018-04-07] MEDS: GABAPENTIN 100 MG CAPSULE (FP) PO SCH ×2 (13:32→22:15)
[2018-04-07] MEDS: IBUPROFEN 400 MG TABLET (FP) PO PRN (17:46)
[2018-04-07] MEDS: QUEtiapine FUMARATE 200 MG TABLET PO SCH (22:15)
[2018-04-07] MEDS: THIAMINE HCL 100 MG TABLET (FP) PO SCH (22:15)
[2018-04-08] MEDS: chlordiazePOXIDE HCL 25 MG CAPSULE PO SCH ×3 (06:27→17:51)
[2018-04-08] MEDS: GABAPENTIN 100 MG CAPSULE (FP) PO SCH ×3 (06:27→22:26)
[2018-04-08] MEDS: NICOTINE 14 MG/24 HOURS TOPICAL PATCH TD SCH (10:45)
[2018-04-08] MEDS: PRENATAL VITAMINS W/ FOLIC ACID TABLET (FP) PO SCH (10:45)
[2018-04-08] MEDS: QUEtiapine FUMARATE 100 MG TABLET (FP) PO SCH (10:45)
[2018-04-08] MEDS: METHADONE HCL 5 MG TABLET (FOR DETOX USE ONLY) PO SCH (10:46)
[2018-04-08] MEDS ORDERED: TRIMETHOBENZAMIDE HCL 200MG/2ML INJ IM PRN (11:05)
[2018-04-08] MEDS: LACTULOSE 20 GM/30 ML UDC (FOR ORAL USE ONLY) PO SCH ×2 (13:10→22:25)
--- NOTE | 2018-04-08 13:51 | PN ---
[facility] CIWA - CIWA Score Nausea/Vomitin-No Nausea/No Vomiting Muscle Tremors: None Anxiety: 4-Mod. Anxious/Guarded Agitation: 2 Paroxysmal Sweats: 3 Orientation: 2-Disoriented Date<2 days Tacttile Disturbances: 3-Moderate Itch/Numb/Burn Auditory Disturbances: 2-Mild Harshness/Frighten Visual Disturbances: 0-None Headache: 0-None Present CIWA-Ar Total Score: 16 BHS COWS - Scale Resting Pulse: 0= GA 80 or Below Sweatin= Chills/Flushing Restless Observation: 1= Difficult to Sit Still Pupil Size: 0= Normal to Room Light Bone or Joint Aches: 2= Severe Diffuse Aches Runny Nose/ Eye Tearin= None GI Upset > 30mins: 3= Vomiting/Diarrhea Tremor Observation of Outstretched Hands: 0= None Yawning Observation: 1= 1-2x During Session Anxiety or Irritability: 2=Irritable/Anxious Goose Flesh Skin: 3=Piloerection COWS Score: 13 S Progress Note (SOAP) Subjective: Tremors, Body Aches, Nausea, Fatigue. Objective: PATIENT A & O X 3, OBSERVED AMBULATING ON UNIT. NO ACUTE DISTRESS. 04/08/18 13:55 Vital Signs Temperature 96.4 F L 04/08/18 09:41 Pulse Rate 72 04/08/18 09:41 Respiratory Rate 16 04/08/18 09:41 Blood Pressure 148/72 04/08/18 09:41 O2 Sat by Pulse Oximetry (%) Laboratory Tests 04/06/18 04/07/18 04/07/18 23:50 07:00 07:00 WBC 5.2 RBC 3.49 L Hgb 10.5 L D Hct 31.0 L MCV 88.8 MCH 30.0 MCHC 33.7 RDW 17.2 H Plt Count 286 MPV 8.3 Sodium 131 L Potassium 4.5 Chloride 95 L Carbon Dioxide 29 Anion Gap 7 L BUN 13 Creatinine 0.8 Creat Clearance w eGFR > 60 Random Glucose 124 H Calcium 8.2 L Total Bilirubin 0.4 D AST 22 D ALT 21 Alkaline Phosphatase 71 D Ammonia Total Protein 7.5 Albumin 3.3 L Urine Color Yellow Urine Appearance Clear Urine pH 5.0 Ur Specific [place] 1.013 Urine Protein Negative Urine Glucose (UA) Negative Urine Ketones Negative Urine Blood Negative Urine Nitrite Negative Urine Bilirubin Negative Urine Urobilinogen Negative Ur Leukocyte Esterase Negative RPR Titer 04/07/18 04/07/18 07:00 14:00 WBC RBC Hgb Hct MCV MCH MCHC RDW Plt Count MPV Sodium Potassium Chloride Carbon Dioxide Anion Gap BUN Creatinine Creat Clearance w eGFR Random Glucose Calcium Total Bilirubin AST ALT Alkaline Phosphatase Ammonia 51.67 H Total Protein Albumin Urine Color Urine Appearance Urine pH Ur Specific [place] Urine Protein Urine Glucose (UA) Urine Ketones Urine Blood Urine Nitrite Urine Bilirubin Urine Urobilinogen Ur Leukocyte Esterase RPR Titer Nonreactive LABS NOTED. Assessment: 04/08/18 13:55 WITHDRAWAL SYMPTOMS. HYPERAMMONEMIA. ANEMIA 04/08/18 13:56 Plan: CONTINUE DETOX. LACTULOSE, 20 GM TID. RE-CHECK AMMONIA LEVEL TOMORROW AM.
[2018-04-08] MEDS: THIAMINE HCL 100 MG TABLET (FP) PO SCH (22:25)
[2018-04-08] MEDS: chlordiazePOXIDE 5 MG CAPSULE PO SCH (22:26)
[2018-04-08] MEDS: QUEtiapine FUMARATE 200 MG TABLET PO SCH (22:26)
[2018-04-09] MEDS: chlordiazePOXIDE 5 MG CAPSULE PO SCH ×3 (04:47→17:38)
[2018-04-09] MEDS: GABAPENTIN 100 MG CAPSULE (FP) PO SCH ×3 (05:09→22:19)
[2018-04-09] MEDS: LACTULOSE 20 GM/30 ML UDC (FOR ORAL USE ONLY) PO SCH ×4 (05:09→22:19)
[2018-04-09] MEDS: QUEtiapine FUMARATE 100 MG TABLET (FP) PO SCH (10:08)
[2018-04-09] MEDS: PRENATAL VITAMINS W/ FOLIC ACID TABLET (FP) PO SCH (10:08)
[2018-04-09] MEDS: METHADONE HCL 5 MG TABLET (FOR DETOX USE ONLY) PO SCH (10:08)
[2018-04-09] MEDS: NICOTINE 14 MG/24 HOURS TOPICAL PATCH TD SCH (10:09)
--- NOTE | 2018-04-09 11:55 | PN ---
[facility] Progress Note (SOAP) Subjective: Interrupted Sleep, Sweating, H/A. Objective: PATIENT A & O X 2 (UNCERTAIN ABOUT CURRENT DAY / DATE). PATIENT OBSERVED AMBULATING ON UNIT WITH ASSISTANCE OF A CANE. NO ACUTE DISTRESS. 04/09/18 11:53 Vital Signs Temperature 95.5 F L 04/09/18 09:58 Pulse Rate 70 04/09/18 09:58 Respiratory Rate 16 04/09/18 09:58 Blood Pressure 144/82 04/09/18 09:58 O2 Sat by Pulse Oximetry (%) Laboratory Tests 04/06/18 04/07/18 04/07/18 23:50 07:00 07:00 WBC 5.2 RBC 3.49 L Hgb 10.5 L D Hct 31.0 L MCV 88.8 MCH 30.0 MCHC 33.7 RDW 17.2 H Plt Count 286 MPV 8.3 Sodium 131 L Potassium 4.5 Chloride 95 L Carbon Dioxide 29 Anion Gap 7 L BUN 13 Creatinine 0.8 Creat Clearance w eGFR > 60 Random Glucose 124 H Calcium 8.2 L Total Bilirubin 0.4 D AST 22 D ALT 21 Alkaline Phosphatase 71 D Ammonia Total Protein 7.5 Albumin 3.3 L Urine Color Yellow Urine Appearance Clear Urine pH 5.0 Ur Specific [place] 1.013 Urine Protein Negative Urine Glucose (UA) Negative Urine Ketones Negative Urine Blood Negative Urine Nitrite Negative Urine Bilirubin Negative Urine Urobilinogen Negative Ur Leukocyte Esterase Negative RPR Titer 04/07/18 04/07/18 07:00 14:00 WBC RBC Hgb Hct MCV MCH MCHC RDW Plt Count MPV Sodium Potassium Chloride Carbon Dioxide Anion Gap BUN Creatinine Creat Clearance w eGFR Random Glucose Calcium Total Bilirubin AST ALT Alkaline Phosphatase Ammonia 51.67 H Total Protein Albumin Urine Color Urine Appearance Urine pH Ur Specific [place] Urine Protein Urine Glucose (UA) Urine Ketones Urine Blood Urine Nitrite Urine Bilirubin Urine Urobilinogen Ur Leukocyte Esterase RPR Titer Nonreactive LABS NOTED. RESULT OF REPEAT AMMONIA LEVEL PENDING. 04/09/18 11:54 Assessment: 04/09/18 11:53 WITHDRAWAL SYMPTOMS. ANEMIA. HYPERAMMONEMIA. 04/09/18 11:54 Plan: CONTINUE DETOX. INCREASE DAILY PO FLUID INTAKE.
--- NOTE | 2018-04-09 15:01 | PN ---
S Progress Note Note: RESULT OF REPEAT AMMONIA LEVEL NOTED. LACTULOSE INCREASED TO 20 GM PO QID. PATIENT A & O X 3, DOES NOT APPEAR CONFUSED OR DISORIENTED WHILE OBSERVED AMBULATING ON UNIT. RE-CHECK AMMONIA LEVEL ON . Jacob WILEY NP.
[2018-04-09] MEDS: IBUPROFEN 400 MG TABLET (FP) PO PRN (17:42)
[2018-04-09] MEDS: QUEtiapine FUMARATE 200 MG TABLET PO SCH (22:19)
[2018-04-09] MEDS: THIAMINE HCL 100 MG TABLET (FP) PO SCH (22:19)
[2018-04-09] MEDS: chlordiazePOXIDE HCL 10 MG CAPSULE PO SCH (22:19)
[2018-04-10] MEDS ORDERED: chlordiazePOXIDE 5 MG CAPSULE ONE (04:16)
[2018-04-10] MEDS: chlordiazePOXIDE HCL 10 MG CAPSULE PO SCH ×3 (05:52→17:45)
[2018-04-10] MEDS: GABAPENTIN 100 MG CAPSULE (FP) PO SCH ×3 (05:52→22:24)
[2018-04-10] MEDS ORDERED: METHADONE HCL 10 MG TABLET (FOR DETOX USE ONLY) PO SCH (10:00)
[2018-04-10] MEDS: QUEtiapine FUMARATE 100 MG TABLET (FP) PO SCH (10:54)
[2018-04-10] MEDS: LACTULOSE 20 GM/30 ML UDC (FOR ORAL USE ONLY) PO SCH ×4 (10:54→22:24)
[2018-04-10] MEDS: PRENATAL VITAMINS W/ FOLIC ACID TABLET (FP) PO SCH (10:55)
[2018-04-10] MEDS: NICOTINE 14 MG/24 HOURS TOPICAL PATCH TD SCH (10:55)
--- NOTE | 2018-04-10 11:29 | PN ---
[facility] Progress Note (SOAP) Subjective: Fatigue, Anxious, Interrupted Sleep. Objective: PATIENT A & O X 2 (UNCERTAIN ABOUT CURRENT DAY / DATE). PATIENT OBSERVED AMBULATING ON UNIT WITH ASSISTANCE OF A CANE. NO ACUTE DISTRESS. 04/10/18 11:29 Vital Signs Temperature 96.6 F L 04/10/18 09:38 Pulse Rate 86 04/10/18 09:38 Respiratory Rate 18 04/10/18 09:38 Blood Pressure 121/70 04/10/18 09:38 O2 Sat by Pulse Oximetry (%) Laboratory Tests 04/06/18 04/07/18 04/07/18 23:50 07:00 07:00 WBC 5.2 RBC 3.49 L Hgb 10.5 L D Hct 31.0 L MCV 88.8 MCH 30.0 MCHC 33.7 RDW 17.2 H Plt Count 286 MPV 8.3 Sodium 131 L Potassium 4.5 Chloride 95 L Carbon Dioxide 29 Anion Gap 7 L BUN 13 Creatinine 0.8 Creat Clearance w eGFR > 60 Random Glucose 124 H Calcium 8.2 L Total Bilirubin 0.4 D AST 22 D ALT 21 Alkaline Phosphatase 71 D Ammonia Total Protein 7.5 Albumin 3.3 L Urine Color Yellow Urine Appearance Clear Urine pH 5.0 Ur Specific [place] 1.013 Urine Protein Negative Urine Glucose (UA) Negative Urine Ketones Negative Urine Blood Negative Urine Nitrite Negative Urine Bilirubin Negative Urine Urobilinogen Negative Ur Leukocyte Esterase Negative RPR Titer 04/07/18 04/07/18 04/09/18 07:00 14:00 07:00 WBC RBC Hgb Hct MCV MCH MCHC RDW Plt Count MPV Sodium Potassium Chloride Carbon Dioxide Anion Gap BUN Creatinine Creat Clearance w eGFR Random Glucose Calcium Total Bilirubin AST ALT Alkaline Phosphatase Ammonia 51.67 H 95.10 H Total Protein Albumin Urine Color Urine Appearance Urine pH Ur Specific [place] Urine Protein Urine Glucose (UA) Urine Ketones Urine Blood Urine Nitrite Urine Bilirubin Urine Urobilinogen Ur Leukocyte Esterase RPR Titer Nonreactive LABS NOTED. Assessment: 04/10/18 11:30 WITHDRAWAL SYMPTOMS. HYPERAMMONEMIA. ANEMIA. 04/10/18 11:30 Plan: CONTINUE DETOX. CONTINUE LACTULOSE QID. RE-CHECK AMMONIA LEVEL TOMORROW AM. INCREASE DAILY PO FLUID INTAKE.
--- NOTE | 2018-04-10 18:08 | PN ---
Psychiatric Progress Note Vital Signs: Vital Signs Period Temp Pulse Resp BP Sys/Ojeda Pulse Ox Last 24 Hr 95.9 F-97.7 F 71-86 16-20 111-132/59-76 Date of Session: 04/10/18 Chief Complaint:: " I feel fine.They are sending me home tomorrow." HPI: Day 5 of detoxification treatment.Patient is doing fine.No adverse event except for abnormal ammonia level (ammonia = 90).Psychiatric follow up is sought for re-assessment of mental status. ROS: Unremarkable.Patient is calm,controlled,ambulatory.Steady gait.Alert and fully oriented. Current Medications: Active Medications Generic Name Dose Route Start Last Admin Trade Name Freq PRN Reason Stop Dose Admin Al Hydroxide/Mg Hydroxide 30 ml 04/06/18 21:26 04/09/18 04:45 Mylanta Oral Suspension - PO 30 ml Q6H PRN Administration DYSPEPSIA Albuterol Sulfate 2 puff 04/06/18 21:25 04/08/18 10:48 Ventolin Hfa Inhaler - IH 2 puff Q4H PRN Administration SHORT OF BREATH/WHEEZING Bupropion HCl 150 mg 04/08/18 10:00 04/10/18 10:54 Wellbutrin Xl - PO 150 mg DAILY SHAMAR Administration Eucalyptus/Menthol/Phenol/Sorbitol 1 each 04/06/18 21:26 Cepastat Lozenge - MM Q4H PRN SORE THROAT Gabapentin 100 mg 04/07/18 14:00 04/10/18 14:47 Neurontin - PO 100 mg TID SHAMAR Administration Guaifenesin 10 ml 04/06/18 21:26 Robitussin Dm - PO Q6H PRN COUGH Ibuprofen 400 mg 04/06/18 21:26 04/09/18 17:42 Motrin - PO 400 mg Q6H PRN Administration PAIN LEVEL 4-6 Lactulose 20 gm 04/09/18 18:00 04/10/18 17:46 Cephulac (Oral Use) PO Not Given QID SHAMAR Loperamide HCl 4 mg 04/06/18 21:26 Imodium - PO Q6H PRN DIARRHEA Magnesium Citrate 300 ml 04/06/18 21:26 Citroma - PO Q48H PRN CONSTIPATION Magnesium Hydroxide 30 ml 04/06/18 21:26 Milk Of Magnesia - PO DAILY PRN CONSTIPATION Melatonin 5 mg 04/06/18 22:00 Melatonin PO HS PRN INSOMNIA Methadone HCl 5 mg 04/11/18 06:00 Dolophine - PO 04/11/18 06:01 DAILY@0600 SHAMAR Nicotine 14 mg 04/07/18 10:00 04/10/18 10:55 Nicoderm Patch - TD Not Given DAILY SHAMAR Nicotine Polacrilex 2 mg 04/06/18 21:26 Nicorette Gum - BC Q2H PRN NICOTINE REPLACEMENT RX Multivit/Folic Acid/Iron 1 tab 04/07/18 10:00 04/10/18 10:55 Vitamins (Sjr) - PO 1 tab DAILY SHAMAR Administration Pseudoephedrine/Triprolidine 1 combo 04/06/18 21:26 Actifed - PO TID PRN NASAL CONGESTION Quetiapine Fumarate 100 mg 04/08/18 10:00 04/10/18 10:54 Seroquel - PO 100 mg DAILY SHAMAR Administration Quetiapine Fumarate 200 mg 04/07/18 22:00 04/09/18 22:19 Seroquel - PO 200 mg HS SHAMAR Administration Thiamine HCl 100 mg 04/06/18 22:00 04/09/18 22:19 Vitamin B1 - PO 100 mg HS SHAMAR Administration Trimethobenzamide HCl 200 mg 04/08/18 11:05 Tigan Injection - IM Q8H PRN NAUSEA Medication(s) Change(s): No changes.Scripts sent electronically to [facility] in [place] for wellbutrin XL 150 mg po daily + seroquel 200 mg po hs + gabapentin 100 mg po tid (30 day supply for each medication).Side effects/ benefits of these drugs are discussed with the patient.Mr Jiménez agrees with this careplan. Current Side Effect: No Lab tests ordered: Yes (ammonia level) Lab tests reviewed: Yes Provider note:: Chart reviewed.Case discussed in the morning with medical CLINICAL OPERATIONS SPECIALIST Adiel.fresh work inspector Deangelo's note of 04/07/18 : appreciated.Met with the patient.Mr Jiménez is found sitting in his room.Environment is clean,tidy and personal belongings properly organized.All done by the patient himself.Excellent personal hygiene.Patient is conversant,well-related,adherent to medications and apprehensive about his aftercare.Mr Jiménez states that he would welcome a referral to a local program (preferably in [place]). Speech remains coherent and goal-directed.Cognition is well preserved.No evidence of delirium at time of this examination.Patient is at his baseline. Total face to face time:: 25 Mental Status Exam - Mental Status Exam Alert and Oriented to: Time, Place, Person Cognitive Function: Good Patient Appearance: Well Groomed Mood: Apprehensive Affect: Appropriate, Normal Range Patient Behavior: Appropriate, Cooperative Speech Pattern: Clear, Appropriate Voice Loudness: Normal Thought Process: Intact, Goal Oriented Thought Disorder: Not Present Hallucinations: Denies Suicidal Ideation: Denies Homicidal Ideation: Denies Insight/Judgement: Fair Sleep: Well Appetite: Good Gait/Station: Other (ambulates with a cane ; slow gait) Psychiatric Treatment Plan - Problem List (1) Alcohol dependence with uncomplicated withdrawal Comment: . (2) Opioid dependence with withdrawal Comment: . (3) Substance induced mood disorder Comment: . (4) Nicotine dependence Qualifiers: Nicotine product type: cigarettes Substance use status: in withdrawal Qualified Code(s): F17.213 - Nicotine dependence, cigarettes, with withdrawal Comment: . (5) Bipolar disorder Qualifiers: Active/Remission status: remission status unspecified Qualified Code(s): F31.9 - Bipolar disorder, unspecified Comment: .As per records.On medications. (6) Insomnia Qualifiers: Insomnia type: unspecified Qualified Code(s): G47.00 - Insomnia, unspecified Comment: .
[2018-04-10] MEDS: QUEtiapine FUMARATE 200 MG TABLET PO SCH (22:24)
[2018-04-10] MEDS: THIAMINE HCL 100 MG TABLET (FP) PO SCH (22:24)
[2018-04-11] MEDS: GABAPENTIN 100 MG CAPSULE (FP) PO SCH (05:52)
[2018-04-11] MEDS ORDERED: METHADONE HCL 5 MG TABLET (FOR DETOX USE ONLY) PO SCH (06:00)
[2018-04-11 09:47] VITALS: BP 119/75; PULSE 78; TEMP 96.7
[2018-04-11] MEDS: LACTULOSE 20 GM/30 ML UDC (FOR ORAL USE ONLY) PO SCH (10:36)
[2018-04-11] MEDS: PRENATAL VITAMINS W/ FOLIC ACID TABLET (FP) PO SCH (10:36)
[2018-04-11] MEDS: NICOTINE 14 MG/24 HOURS TOPICAL PATCH TD SCH (10:37)
[2018-04-11] MEDS: QUEtiapine FUMARATE 100 MG TABLET (FP) PO SCH (10:37)
--- NOTE | 2018-04-11 19:01 | PN ---
[facility] Progress Note (SOAP) Subjective: Patient denies current Detox symptoms and reports that he feels well overall. Objective: PATIENT A & O X 3, OBSERVED AMBULATING ON UNIT. NO ACUTE DISTRESS. 04/11/18 19:00 Vital Signs Temperature 96.7 F L 04/11/18 09:46 Pulse Rate 78 04/11/18 09:46 Respiratory Rate 18 04/11/18 09:46 Blood Pressure 119/75 04/11/18 09:46 O2 Sat by Pulse Oximetry (%) Laboratory Tests 04/06/18 04/07/18 04/07/18 23:50 07:00 07:00 WBC 5.2 RBC 3.49 L Hgb 10.5 L D Hct 31.0 L MCV 88.8 MCH 30.0 MCHC 33.7 RDW 17.2 H Plt Count 286 MPV 8.3 Sodium 131 L Potassium 4.5 Chloride 95 L Carbon Dioxide 29 Anion Gap 7 L BUN 13 Creatinine 0.8 Creat Clearance w eGFR > 60 Random Glucose 124 H Calcium 8.2 L Total Bilirubin 0.4 D AST 22 D ALT 21 Alkaline Phosphatase 71 D Ammonia Total Protein 7.5 Albumin 3.3 L Urine Color Yellow Urine Appearance Clear Urine pH 5.0 Ur Specific [place] 1.013 Urine Protein Negative Urine Glucose (UA) Negative Urine Ketones Negative Urine Blood Negative Urine Nitrite Negative Urine Bilirubin Negative Urine Urobilinogen Negative Ur Leukocyte Esterase Negative RPR Titer 04/07/18 04/07/18 04/09/18 07:00 14:00 07:00 WBC RBC Hgb Hct MCV MCH MCHC RDW Plt Count MPV Sodium Potassium Chloride Carbon Dioxide Anion Gap BUN Creatinine Creat Clearance w eGFR Random Glucose Calcium Total Bilirubin AST ALT Alkaline Phosphatase Ammonia 51.67 H 95.10 H Total Protein Albumin Urine Color Urine Appearance Urine pH Ur Specific [place] Urine Protein Urine Glucose (UA) Urine Ketones Urine Blood Urine Nitrite Urine Bilirubin Urine Urobilinogen Ur Leukocyte Esterase RPR Titer Nonreactive 04/11/18 07:50 WBC RBC Hgb Hct MCV MCH MCHC RDW Plt Count MPV Sodium Potassium Chloride Carbon Dioxide Anion Gap BUN Creatinine Creat Clearance w eGFR Random Glucose Calcium Total Bilirubin AST ALT Alkaline Phosphatase Ammonia 48.22 H Total Protein Albumin Urine Color Urine Appearance Urine pH Ur Specific [place] Urine Protein Urine Glucose (UA) Urine Ketones Urine Blood Urine Nitrite Urine Bilirubin Urine Urobilinogen Ur Leukocyte Esterase RPR Titer LABS NOTED. Assessment: 04/11/18 19:00 COMPLETION OF DETOX REGIMEN. Plan: PATIENT SCHEDULED FOR DISCHARGE FROM DETOX UNIT TODAY.
--- NOTE | 2018-04-11 19:04 | DS ---
[facility] Detox Discharge Summary Admission Date: 04/06/18 Discharge Date: 04/11/18 - History Present History: Alcohol Dependence, Opioid Dependence Additional Comments: THIRD (REPEAT) AMMONIA LEVEL RESULT NOTED PRIOR TO PATIENT'S DISCHARGE. PATIENT GOING HOME, WILL PURSUE AFTERCARE AT [facility] ([place] PATIENT ADVISED TO FOLLOW-UP WITH RECORDING CLERK AT [facility] ([place] FOR GENERAL MEDICAL ASSESSMENT AND FOR ELEVATED AMMONIA LEVEL NOTE WHILE ADMITTED FOR DETOX. COPIES OF ALL LABS, INCLUDE AMMONIA LEVELS, DRAWN WHILE ADMITTED FOR DETOX GIVEN TO PATIENT AT TIME OF DISCHARGE FROM DETOX FOR AFTERCARE FOLLOW-UP. PRESCRIPTION FOR LACTULOSE SENT TO PATIENT'S PHARMACY ( [facility], [place] FOR FOLLOW-UP AFTERCARE. PATIENT WAS DISCHARGED FROM DETOX UNIT IN STABLE MEDICAL CONDITION. Pertinent Past History: Arthritis of Hip, HTN, Bipolar Disorder, Hepatitis A, Hepatitis B, Hepatitis C, Asthma, Nicotine Dependence, Chronic Low Back Pain, Insomnia, Anemia, Hyperammonemia, Use of Cane as Ambulatory Aid. - Physical Exam Results Vital Signs: Vital Signs Temperature 96.7 F L 04/11/18 09:46 Pulse Rate 78 04/11/18 09:46 Respiratory Rate 18 04/11/18 09:46 Blood Pressure 119/75 04/11/18 09:46 O2 Sat by Pulse Oximetry (%) Pertinent Admission Physical Exam Findings: WITHDRAWAL SYMPTOMS. Laboratory Tests 04/06/18 04/07/18 04/07/18 23:50 07:00 07:00 WBC 5.2 RBC 3.49 L Hgb 10.5 L D Hct 31.0 L MCV 88.8 MCH 30.0 MCHC 33.7 RDW 17.2 H Plt Count 286 MPV 8.3 Sodium 131 L Potassium 4.5 Chloride 95 L Carbon Dioxide 29 Anion Gap 7 L BUN 13 Creatinine 0.8 Creat Clearance w eGFR > 60 Random Glucose 124 H Calcium 8.2 L Total Bilirubin 0.4 D AST 22 D ALT 21 Alkaline Phosphatase 71 D Ammonia Total Protein 7.5 Albumin 3.3 L Urine Color Yellow Urine Appearance Clear Urine pH 5.0 Ur Specific [place] 1.013 Urine Protein Negative Urine Glucose (UA) Negative Urine Ketones Negative Urine Blood Negative Urine Nitrite Negative Urine Bilirubin Negative Urine Urobilinogen Negative Ur Leukocyte Esterase Negative RPR Titer 04/07/18 04/07/18 04/09/18 07:00 14:00 07:00 WBC RBC Hgb Hct MCV MCH MCHC RDW Plt Count MPV Sodium Potassium Chloride Carbon Dioxide Anion Gap BUN Creatinine Creat Clearance w eGFR Random Glucose Calcium Total Bilirubin AST ALT Alkaline Phosphatase Ammonia 51.67 H 95.10 H Total Protein Albumin Urine Color Urine Appearance Urine pH Ur Specific [place] Urine Protein Urine Glucose (UA) Urine Ketones Urine Blood Urine Nitrite Urine Bilirubin Urine Urobilinogen Ur Leukocyte Esterase RPR Titer Nonreactive 04/11/18 07:50 WBC RBC Hgb Hct MCV MCH MCHC RDW Plt Count MPV Sodium Potassium Chloride Carbon Dioxide Anion Gap BUN Creatinine Creat Clearance w eGFR Random Glucose Calcium Total Bilirubin AST ALT Alkaline Phosphatase Ammonia 48.22 H Total Protein Albumin Urine Color Urine Appearance Urine pH Ur Specific [place] Urine Protein Urine Glucose (UA) Urine Ketones Urine Blood Urine Nitrite Urine Bilirubin Urine Urobilinogen Ur Leukocyte Esterase RPR Titer LABS NOTED. - Treatment Hospital Course: Detox Protocol Followed, Detoxed Safely, Responded well, Discharged Condition Good - Medication Discharge Medications: Ambulatory Orders Gabapentin [Neurontin -] 100 mg PO TID #90 capsule 03/05/17 Pantoprazole Sodium [Protonix] 40 mg PO DAILY #30 tablet.dr 03/05/17 Quetiapine Fumarate [Seroquel -] 100 mg PO DAILY 10/07/17 Quetiapine Fumarate [Seroquel -] 300 mg PO HS 10/07/17 Bupropion HCl [Bupropion Xl] 150 mg PO DAILY #30 tab.er.24h 10/10/17 Quetiapine Fumarate [Seroquel -] 300 mg PO HS #30 tab 10/10/17 Bupropion HCl [Wellbutrin Xl -] 150 mg PO DAILY #30 tab.sr.24h 04/10/18 Gabapentin [Neurontin -] 100 mg PO TID #60 capsule 04/10/18 Quetiapine Fumarate [Seroquel -] 200 mg PO HS #30 tab 04/10/18 Albuterol Sulfate Inhaler - [Ventolin HFA Inhaler -] 2 puff IH Q4H PRN #1 inhaler 04/11/18 Lactulose (Oral Use) [Cephulac -] 20 gm PO BID 5 Days #10 bottle 04/11/18 - Diagnosis (1) Acute on chronic alteration in mental status Status: Chronic (2) Alcohol dependence with uncomplicated withdrawal Status: Acute (3) Arthritis, hip Status: Chronic (4) Asthma Status: Chronic Qualifiers: Asthma severity: mild Asthma persistence: intermittent Asthma complication type: uncomplicated Qualified Code(s): J45.20 - Mild intermittent asthma, uncomplicated (5) COPD (chronic obstructive pulmonary disease) Status: Chronic Qualifiers: COPD type: chronic bronchitis Chronic bronchitis type: simple Qualified Code(s): J41.0 - Simple chronic bronchitis (6) Chronic low back pain Status: Chronic Qualifiers: Back pain laterality: unspecified Sciatica presence: without sciatica Qualified Code(s): M54.5 - Low back pain; G89.29 - Other chronic pain; G89.29 - Other chronic pain (7) Essential hypertension Status: Chronic (8) GERD (gastroesophageal reflux disease) Status: Chronic Qualifiers: Esophagitis presence: without esophagitis Qualified Code(s): K21.9 - Gastro -esophageal reflux disease without esophagitis (9) Hepatitis C carrier Status: Chronic (10) Nicotine dependence Status: Chronic Qualifiers: Nicotine product type: cigarettes Substance use status: in withdrawal Qualified Code(s): F17.213 - Nicotine dependence, cigarettes, with withdrawal (11) Opioid dependence with withdrawal Status: Acute (12) Use of cane as ambulatory aid Status: Chronic (13) Weight loss Status: Chronic (14) Substance induced mood disorder Status: Acute (15) Hyperammonemia Status: Acute (16) Insomnia Status: Acute Qualifiers: Insomnia type: unspecified Qualified Code(s): G47.00 - Insomnia, unspecified - AMA Did Patient Leave Against Medical Advice: No
== END 2018-04-11 13:26 | disposition home or self-care (01) | DRG 897 ==
LOC: YASAS 16:21 → Y3N 21:15
PROVIDERS: ADMIT Internal Medicine; ATTEND Internal Medicine
PROC: HZ2ZZZZ Detoxification Services for Substance Abuse Treatment (ICD-10-PCS; principal; 2018-04-06)
DX: F11.23 Opioid dependence with withdrawal (principal); E72.20 Disorder of urea cycle metabolism, unspecified; F10.230 Alcohol dependence with withdrawal, uncomplicated; F17.210 Nicotine dependence, cigarettes, uncomplicated; F31.9 Bipolar disorder, unspecified; F19.24 Other psychoactive substance dependence with psychoactive substance-induced mood disorder; R41.82 Altered mental status, unspecified; G47.00 Insomnia, unspecified; I10 Essential (primary) hypertension; K21.9 Gastro-esophageal reflux disease without esophagitis; M54.5 Low back pain; G89.29 Other chronic pain; J45.20 Mild intermittent asthma, uncomplicated; J41.0 Simple chronic bronchitis; R26.89 Other abnormalities of gait and mobility; Z99.89 Dependence on other enabling machines and devices; Z91.5 Personal history of self-harm
CPT/HCPCS: 36415; 80053; 81003; 82140; 85027; 86593; 93005; 93010

== ENCOUNTER 2020-12-02 16:12 | Emergency (ER) | payer OTHER ==
[2020-12-02 16:48] VITALS: TEMP 98.1; BMI 15.6
[2020-12-02] MEDS ORDERED: ASPIRIN 81 MG CHEWABLE TABLETS PO ONE (19:21)
[2020-12-02] MEDS ORDERED: ASPIRIN 81 MG CHEWABLE TABLETS ONE (19:27)
[2020-12-02 19:43] LABS: BASO % 0.6 % (0-2.0); EOS % 0.2 % (0-4.5); HEMATOCRIT 30.7 % (35.4-49); HEMOGLOBIN 10.1 GM/dL (11.7-16.9); LYMPH % 10.3 % (8-40); MCH 33.3 pg (25.7-33.7); MEAN CELL VOLUME 100.9 fl (80-96); MEAN PLT VOLUME 8.3 fl (7.5-11.1); MONO % 6.5 % (3.8-10.2); NEUT % 82.4 % (42.8-82.8); PLATELET COUNT 229 K/MM3 (134-434); RBC 3.04 M/mm3 (4.00-5.60); RDW 15.4 % (11.9-15.9); WHITE BLOOD COUNT 10.2 K/mm3 (4.0-10.0)
[2020-12-02] MEDS ORDERED: CLOPIDOGREL BISULFATE 300 MG TABLET PO ONE (19:43)
[2020-12-02] MEDS ORDERED: ATORVASTATIN CA 80 MG TABLET (FP) PO ONE (19:43)
[2020-12-02] MEDS ORDERED: CLOPIDOGREL BISULFATE 300 MG TABLET ONE (19:44)
[2020-12-02] MEDS ORDERED: HEPARIN NA (PORCINE) 5,000 UNITS/ML 1ML VIAL IVPUSH ONE (19:44)
[2020-12-02] MEDS ORDERED: HEPARIN - 25,000 UNIT in SODIUM CHLORIDE 495 ML IV SCH (19:45)
[2020-12-02] MEDS ORDERED: HEPARIN NA (PORCINE) 5,000 UNITS/ML 1ML VIAL IVPUSH PRN ×3 (19:45→19:56)
[2020-12-02] MEDS ORDERED: ATORVASTATIN CA 80 MG TABLET (FP) ONE (19:45)
[2020-12-02] MEDS ORDERED: HEPARIN INFUSION - 25,000 UNITS/500 ML INFUS.BAG IVPB ONE (19:45)
[2020-12-02 19:54] LABS: VENOUS BASE EXCESS 2.8 mmol/L (-2-2); VENOUS O2 SATURATION 41.2 % (70-80); VENOUS PCO2 60.6 mmHg (38-52); VENOUS PH 7.316 (7.310-7.410)
[2020-12-02 19:56] LABS: INR 1.35 (0.83-1.09); PROTHROMBIN TIME (PATIENT) 16.2 SEC (9.7-13.0)
[2020-12-02 20:03] LABS: CALCIUM 7.9 mg/dL (8.5-10.1)
[2020-12-02 20:04] LABS: ALBUMIN 2.1 g/dl (3.4-5.0); BLOOD UREA NITROGEN 8.8 mg/dL (7-18); MAGNESIUM 1.4 mg/dL (1.8-2.4)
[2020-12-02 20:08] LABS: BILIRUBIN,TOTAL 0.6 mg/dL (0.2-1); CREATININE 0.5 mg/dL (0.55-1.3); TOT PROT 7.4 g/dl (6.4-8.2)
[2020-12-02 20:13] LABS: N-TERMINAL BNP 4623.7 pg/ml (5-125)
[2020-12-02 20:32] VITALS: BP 121/70; PULSE 91
== END 2020-12-02 20:29 | disposition short-term general hospital (02) ==
LOC: JER 16:12
PROC: 3E033GC Introduction of Other Therapeutic Substance into Peripheral Vein, Percutaneous Approach (ICD-10-PCS; principal; 2020-12-02)
DX: I21.3 ST elevation (STEMI) myocardial infarction of unspecified site (principal)
CPT/HCPCS: 36415; 71045-TC-FY; 80053; 82550; 82553; 82728; 82803; 83605; 83615; 83735; 83880; 84484; 85025; 85379; 85610; 86140; 93005; 93010; 99291; J1644